=== PATIENT | male | born 1965 | race Caucasian/White ===

== ENCOUNTER 2023-02-22 09:27 | Outpatient (CLI) | payer OTHER, SELFPAY | END 2023-02-22 09:28 | disposition home or self-care (01) | PROVIDERS: PCP Nurse Practitioner Family; Visit Provider Family Medicine | DX: I10 Essential (primary) hypertension (principal); E13.9 Other specified diabetes mellitus without complications; E66.9 Obesity, unspecified; R06.09 Other forms of dyspnea; Z13.29 Encounter for screening for other suspected endocrine disorder; Z12.5 Encounter for screening for malignant neoplasm of prostate; Z90.89 Acquired absence of other organs; Z96.22 Myringotomy tube(s) status | CPT/HCPCS: 80048; 80076; 84153; 84443 ==

== ENCOUNTER 2023-04-02 13:33 | Outpatient (CLI) | payer OTHER, SELFPAY ==
[2023-04-02] MEDS: PERFLUTREN LIPID MICROSPHERES 2 ML VIAL IV (18:14)
== END 2023-04-02 13:34 | disposition home or self-care (01) ==
LOC: RAD 13:34
PROVIDERS: PCP Nurse Practitioner Family; Visit Provider Family Medicine
DX: R06.09 Other forms of dyspnea (principal); I51.7 Cardiomegaly
CPT/HCPCS: 93306; Q9957

== ENCOUNTER 2023-04-27 08:41 | Outpatient (RCR) | payer OTHER, SELFPAY ==
[2023-04-27] MEDS: REGADENOSON 0.4 MG/5 ML SYRINGE IVP (08:46)
[2023-04-27] MEDS: SODIUM CHLORIDE 0.9 % (FLUSH) 10 ML SYRINGE IVF (08:46)
[2023-04-27 10:28] VITALS: BP 116/64; PULSE 87
--- NOTE | 2023-04-27 10:41 | W.PM.STED ---
Stress Test Note Date Date of test: 04/27/23 Providers Primary care provider: Janina Alvarenga Stress test physician: Derek Pryor Stress Test Note Stress test ordered: Lexiscan Indication for test: Dyspnea Stress test medicine: Lexiscan Results discussion: Patient is a 57-year-old gentleman who presents for the above test, after review of the cardiac stress test medical history form. In discussing the risks benefits and side effects of this test he would like to proceed. Pretest EKG shows EKG with normal sinus rhythm, no acute ST wave changes are noted. Ventricular rate is 87 with a blood pressure 110/61. Standard infusion of Lexiscan is done over 5 minute. Maximum heart rate was 95, maximum blood pressure was 132/68. He was asymptomatic and had no complaints. Review of his tracing showed no evidence of dysrhythmia, there is no EKG evidence of ST wave changes, he recovered normally Impression: Negative electrographic portion of Lexiscan Follow up suggested: Await nuclear images these will be read by nuclear Medicine, clinical correlation with these will be needed. Patient left this testing facility in good condition, at baseline.
== END 2023-05-06 23:59 | disposition home or self-care (01) ==
LOC: STRESS 08:41
PROVIDERS: PCP Nurse Practitioner Family; Visit Provider Family Medicine
DX: R06.09 Other forms of dyspnea (principal)
CPT/HCPCS: 78452; 93016; 93017; A9500; J2785

== ENCOUNTER 2023-05-23 14:23 | Outpatient (REF) | payer OTHER, SELFPAY ==
[2023-05-23 14:58] LABS: Basophils Absolute Auto 0.12 K/uL (0.00-0.30); Basophils Percent Auto 1.3 % (0.0-3.0); Eosinophils Absolute Auto 0.29 K/uL (0.00-0.50); Immature Granulocytes Abs Auto 0.06 K/uL (0.00-0.30); Immature Granulocytes Pct Auto 0.6 %; Immature Reticulocyte Fraction 32.8 % (2.3-13.4); Lymphocytes Percent Auto 17.2 % (20-44); Mean Corpuscular HGB Conc 22 gm/dL (32-36); Mean Corpuscular Hemoglobin 13 pg (26-34); Mean Corpuscular Volume 60 fL (80-100); Monocytes Percent Auto 7.8 % (0.0-11.0); Neutrophils Absolute Auto 6.69 K/uL (1.7-7.0); Neutrophils Percent Auto 70.1 % (42.0-72.0); Platelet Count* 554 K/uL (140-440); RDW Coefficient of Variation % 24.6 % (11.5-15.5); Reticulocyte Hemoglobin Equivi 11.3 pg (29.0-35.0); Reticulocyte Percent 3.2 % (0.5-2.0); White Blood Count* 9.54 K/uL (4.50-11.00)
[2023-05-23 14:59] LABS: Albumin* 3.7 g/dL (3.3-5.0)
[2023-05-23 15:00] LABS: Chloride* 100 mmol/L (96-114); Potassium* 5.4 mmol/L (3.6-5.1); Sodium* 134 mmol/L (135-149)
[2023-05-23 15:02] LABS: Bilirubin Total* 0.8 mg/dL (0.1-1.5); Creatinine* 0.7 mg/dL (0.5-1.5); Estimated Glomerular Filt Rate 108 ml/min; Iron* 24 ug/dL (49-181)
[2023-05-23 15:03] LABS: Alanine Aminotransferase* 11 U/L (4-50); Alkaline Phosphatase* 98 U/L (40-150); Anion Gap 13 mEq/L (7-15); Aspartate Amino Transferase* 16 U/L (12-35); Blood Urea Nitrogen* 9 mg/dL (7-30); Calcium* 8.4 mg/dL (8.4-10.6); Carbon Dioxide* 21 mmol/L (20-32); Glucose* 249 mg/dL (60-115); Lactate Dehydrogenase* 201 U/L (120-246); Total Protein* 6.5 g/dL (6.0-8.3)
[2023-05-23 15:12] LABS: Percent Iron Saturation 5 % (20-50); Total Iron Binding Capacity 458 ug/dL (261-462)
[2023-05-23 15:38] LABS: Ferritin* 3.6 ng/mL (17.9-464.0)
[2023-05-23 20:49] LABS: NT Pro B Type NatriureticPept* 271 pg/mL
[2023-05-23 21:03] LABS: Slide Review Reflex No
== END 2023-05-23 14:24 | disposition home or self-care (01) ==
LOC: NPINS 14:23
PROVIDERS: PCP Nurse Practitioner Family; Visit Provider Internal Medicine
DX: D64.9 Anemia, unspecified (principal); R06.9 Unspecified abnormalities of breathing
CPT/HCPCS: 80053; 82728; 83540; 83550; 83615; 83880; 85025; 85045

== ENCOUNTER 2023-05-23 20:50 | Inpatient (IN) | payer OTHER, SELFPAY ==
[2023-05-23] VITALS (9 sets, daily range): BP systolic 126–152; BP diastolic 62–78; PULSE 82–93; RESP 20–24; TEMP 37.1–37.2; O2SAT 98–100; BMI 43.5; BMI 44.2
[2023-05-23 21:15] LABS: Red Blood Count 2.83 m/uL (4.30-5.90); White Blood Count* 9.11 K/uL (4.50-11.00)
[2023-05-23 21:16] LABS: Basophils Percent Auto 0.2 % (0.0-3.0); Eosinophils Percent Auto 2.4 % (0.0-7.0); Hematocrit 16.8 % (37.0-53.0); Hemoglobin* 3.8 gm/dL (13.5-17.5); Lymphocytes Percent Auto 19.2 % (20-44); Mean Corpuscular HGB Conc 23 gm/dL (32-36); Mean Corpuscular Hemoglobin 13 pg (26-34); Mean Corpuscular Volume 59 fL (80-100); Monocytes Percent Auto 9.3 % (0.0-11.0); Neutrophils Percent Auto 68.4 % (42.0-72.0); Platelet Count* 214 K/uL (140-440); Slide Review Reflex Yes
--- NOTE | 2023-05-23 21:24 | ED.GENADULT ---
HPI - General Adult General Chief complaint: Unspecified Complaint, Adult Stated complaint: fatigue, shortness of breath Time Seen by Provider: 05/23/23 21:03 Source: patient Mode of arrival: ambulatory Limitations: no limitations History of Present Illness HPI narrative: 57-year-old male coming in today at the request of the lab for hemoglobin of 3.8. Patient states he has been having shortness of breath since last February. He had a stress test done which was unremarkable and sent to the occupational therapist assistant. He had a hemoglobin done last week he states which was 7.0 at the occupational therapist assistant's office and he was instructed to repeat his hemoglobin this week. He had a repeat done this afternoon around noon which was 4.0 so he was instructed to return for repeat again. Repeat this evening was 3.8 and patient was sent to the ER. Patient states that his shortness of breath is gotten progressively worse over the last couple of months. He can hardly walk anywhere without having to rest. He does not have any chest pain. He states that his stools have been running a because of the metformin that he takes with their always brown, he denies any black tarry stools. He denies any blood in his stools per he denies any blood in his urine. He denies any recent illness with vomiting. He denies any family history that he is aware of that causes anemia. He has never had a colonoscopy. Related Data Home Medications Medication Instructions Recorded Confirmed amlodipine 5 mg tablet 5 mg PO DAILY 02/24/22 05/02/23 aspirin 81 mg capsule 81 mg PO QDAY 02/24/22 05/02/23 atorvastatin 10 mg tablet 10 mg PO .Bedtime 02/24/22 05/02/23 ezetimibe 10 mg tablet 10 mg PO 02/24/22 05/02/23 levothyroxine 50 mcg tablet 50 mcg PO DAILY 02/24/22 05/02/23 lisinopril 10 mg tablet 10 mg PO QDAY 02/24/22 05/02/23 metformin 500 mg tablet 500 mg PO TIDWMEAL 02/24/22 05/02/23 omega-3 fatty acids 1,000 mg 1,000 mg PO QDAY 02/24/22 05/02/23 capsule dulaglutide 3 mg/0.5 mL 3 mg subcut QWEEK 03/19/22 05/02/23 subcutaneous pen injector (Trulicity) insulin regular hum U-500 conc 500 85 unit subcut TID 03/19/22 05/02/23 unit/mL subcutaneous soln (Humulin R U-500 (Concentrated) Insulin) Previous Rx's Medication Instructions Recorded furosemide 40 mg tablet 40 mg PO QAM #90 tabs 02/22/23 ofloxacin 0.3 % eye drops See Rx Instructions ophthalmic 05/02/23 (eye) .COMPLEX #10 mL Allergies Allergy/AdvReac Type Severity Reaction Status Date / Time No Known Drug Allergies Allergy Verified 05/02/23 10:54 Review of Systems Status of ROS: Reports: 10 or more systems reviewed and unremarkable except as noted in History and below [facility] Surgical History History of tympanostomy tube placement ?Z96.22 - Myringotomy tube(s) status (ICD-10) S/P adenoidectomy ?Z90.89 - Acquired absence of other organs (ICD-10) Social History Smoking Status: Never smoker Exam Narrative: Exam Narrative: Obese patient, a tachypneic upon entering the ER. Patient is obviously pale. Alert and oriented. Answers questions appropriately. Mood and affect are appropriate. Thoughts are goal oriented and rational. No tangential or magical thinking noted. Patient cannot complete a full sentence without needing to catch his breath. HEENT: Normocephalic atraumatic. Pupils are equally round reactive to light. Extraocular muscles are intact. Conjunctivae are moist but pale. Moist, pale mucous membranes. Neck is soft. Cardiovascular: Heart is regular rate and rhythm S1 and S2 are present without any murmurs. Lungs: Clear to auscultation bilaterally no wheezes rhonchi or rales are appreciated. Patient takes deep breaths without any discomfort. Abdomen: Protuberant with normal bowel sounds. Unable to assess for organomegaly secondary to body habitus. Extremities: Bilateral lower extremities show 2+ pitting edema bilaterally with the right greater than the left. Right side has some chronic skin changes from chronic edema. Skin: Well perfused, pale. Const: Vital Signs, click to edit/add: Vital Signs - 24 hr 05/23/23 21:04 05/23/23 21:13 Temperature 99.0 F Pulse Rate [Right Pulse Oximeter] 93 Respiratory Rate 20 Blood Pressure [Le ft Upper Arm] 131/78 Pulse Oximetry 98 98 Oxygen Delivery Me thod Room Air Course Course ED Course: Blood work was reviewed. Hemoglobin 3.8. EKG, read by me, shows normal sinus rhythm with a pulse of 89. Type and cross ordered. Vital Signs Vital signs: Initial Vital Signs Temperature 99.0 F 05/23/23 21:04 Temperature Source Temporal Artery Scan 05/23/23 21:04 Pulse Rate 93 05/23/23 21:04 Pulse Rhythm Regular 05/23/23 21:04 Pulse Strength 3+ Normal 05/23/23 21:04 Respiratory Rate 20 05/23/23 21:04 Blood Pressure 131/78 05/23/23 21:04 Blood Pressure Mean 95 05/23/23 21:04 Blood Pressure Position Supine 05/23/23 21:04 Pulse Oximetry 98 05/23/23 21:04 Oxygen Delivery Method Room Air 05/23/23 21:04 Vital Signs Temperature 99.0 F 05/23/23 21:04 Pulse Rate 93 05/23/23 21:04 Respiratory Rate 20 05/23/23 21:04 Blood Pressure 131/78 05/23/23 21:04 Pulse Oximetry 98 05/23/23 21:04 Oxygen Delivery Method Room Air 05/23/23 21:04 Temperature 99.0 F 05/23/23 21:04 Pulse Rate 93 05/23/23 21:04 Respiratory Rate 20 05/23/23 21:04 Blood Pressure 131/78 05/23/23 21:04 Pulse Oximetry 98 05/23/23 21:13 Oxygen Delivery Method Room Air 05/23/23 21:04 Medical Decision Making [facility] Narrative Medical decision making narrative: 57-year-old male with anemia of unclear etiology. And patient will be admitted for further management. Lab Data Lab results reviewed: Yes I reviewed the patient's lab results Labs: Lab Results 05/23/23 Range/Units 21:10 WBC 9.11 (4.50-11.00) K/uL RBC 2.83 L (4.30-5.90) m/uL Hgb 3.8 L* (13.5-17.5) gm/dL Hct 16.8 L (37.0-53.0) % MCV 59 L (80-100) fL MCH 13 L (26-34) pg MCHC 23 L (32-36) gm/dL Plt Count 214 (140-440) K/uL Neut % (Auto) 68.4 (42.0-72.0) % Lymph % (Auto) 19.2 L (20-44) % [place] % (Auto) 9.3 (0.0-11.0) % Eos % (Auto) 2.4 (0.0-7.0) % Baso % (Auto) 0.2 (0.0-3.0) % Neut # (Auto) 6.20 (1.7-7.0) K/uL Lymph # (Auto) 1.70 (0.90-2.90) K/uL [place] # (Auto) 0.80 (0.00-0.90) K/UL Eos # (Auto) 0.20 (0.00-0.50) K/uL Baso # (Auto) 0.00 (0.00-0.30) K/uL Blood Type AB Positive Antibody Screen NEGATIVE Crossmatch (AHG) See Detail ECG Data Attestation: I personally reviewed and interpreted this ECG as follows: Discharge Plan Discharge Clinical Impression: Symptomatic anemia Patient Disposition: Admitted As Observation Condition: Stable Prescriptions: No Action furosemide 40 mg tablet 40 mg PO QAM Qty: 90 1RF ofloxacin 0.3 % drops See Rx Instructions ophthalmic (eye) .COMPLEX Qty: 10 0RF Rx Instructions: put 1-2 drps into affected eye(s) every 2-4 h x 2 days, then 1-2 drps 4 times/day days 3-7 ophthalmic (eye) ezetimibe 10 mg tablet 10 mg PO levothyroxine 50 mcg tablet 50 mcg PO DAILY amlodipine 5 mg tablet 5 mg PO DAILY atorvastatin 10 mg tablet 10 mg PO .Bedtime omega-3 fatty acids 1,000 mg capsule 1,000 mg PO QDAY aspirin 81 mg capsule 81 mg PO QDAY metformin 500 mg tablet 500 mg PO TIDWMEAL lisinopril 10 mg tablet 10 mg PO QDAY Trulicity 3 mg/0.5 mL pen injector 3 mg subcut QWEEK Humulin R U-500 (Conc) Insulin 500 unit/mL solution 85 unit subcut TID Follow Up/Referrals: Patrick Kirk MD [Primary Care Provider] -
--- NOTE | 2023-05-23 21:45 | P.IMHP_ITS ---
Hospitalist- H&P: HPI History of Present Illness Date Seen: 05/23/23 Chief complaint: fatigue, shortness of breath Narrative: Des Parker is a 57 year old male with diabetes mellitus, hypertension, obstructive sleep apnea on CPAP, obesity with BMI of 43 presents with progressive dyspnea and lightheadedness over several months. Today was seen when his hemoglobin was found to be 3.8. Patient reports no apparent bleeding. He has normal brown stools without blood or melena. No other bleeding problems. No other history of anemia. Review of the records show that his last hemoglobin was in April of 2015 and was 18.5 with an MCV of 91 and a platelet count of 214. He had an echocardiogram in March of 2023 to evaluate his dyspnea. He had an ejection fraction of 60-65%. Mild LVH and enlarged RV with reduced RV function. April 27 he had a myocardial perfusion stress test which was normal. [facility] Medical History (Updated 05/23/23 @ 22:54 by Carloz Bah MD) Symptomatic anemia ?D64.9 - Anemia, unspecified (ICD-10) Dyspnea on exertion ?R06.09 - Other forms of dyspnea (ICD-10) Ascending aorta dilation ?I77.810 - Thoracic aortic ectasia (ICD-10) BANG on CPAP ?G47.33 - Obstructive sleep apnea (adult) (pediatric) (ICD-10) Obesity ?E66.9 - Obesity, unspecified (ICD-10) Diabetes 1.5, managed as type 1 ?E13.9 - Other specified diabetes mellitus without complications (ICD-10) Hypertension ?I10 - Essential (primary) hypertension (ICD-10) Surgical History History of tympanostomy tube placement ?Z96.22 - Myringotomy tube(s) status (ICD-10) S/P adenoidectomy ?Z90.89 - Acquired absence of other organs (ICD-10) Social History (Updated 05/23/23 @ 22:56 by Carloz Bah MD) Narrative: He lives in [place]. 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 He does not smoke. He rarely drinks alcohol. Code status is DNR. His oldest child, Des campbell, is healthcare power of assistant city attorney What is your current living situation?: I presently have a place to live Problems where you live: no known problems Problems where you live details: n/a In the past 12 months, utilities in danger of being shut off: no In past 12 months, lack of transportation kept you from medical appts, meetings, work, or getting things needed for daily living: no In the past 12 mos, have been you worried that your food would run out before you had money to buy more?: never true In the past 12 mos, the food you bought just didn't last and you didn't have money to buy more?: never true Smoking Status: Former smoker Do you use any of these nicotine containing products: None Second hand tobacco smoke exposure: No How often do you have a drink containing alcohol: monthly or less How often do you have six or more drinks on one occasion: Never AUDIT-C Alcohol total score: 1 Non-prescribed substance use: denies use Caffeine: Yes (weekly) How often does anyone, including family, friends and others, physically hurt you : never How often does anyone, including family, friends and others, insult or talk down to you: never How often does anyone, including family, friends and others, threaten you with harm: never How often does anyone, including family, friends and others, scream or curse at you: never Meds Home Medications and Allergies Home Medications Medication Instructions Recorded Confirmed Type amlodipine 5 mg tablet 5 mg PO DAILY 02/24/22 05/02/23 History aspirin 81 mg capsule 81 mg PO QDAY 02/24/22 05/02/23 History atorvastatin 10 mg tablet 10 mg PO .Bedtime 02/24/22 05/02/23 History ezetimibe 10 mg tablet 10 mg PO 02/24/22 05/02/23 History levothyroxine 50 mcg tablet 50 mcg PO DAILY 02/24/22 05/02/23 History lisinopril 10 mg tablet 10 mg PO QDAY 02/24/22 05/02/23 History metformin 500 mg tablet 500 mg PO TIDWMEAL 02/24/22 05/02/23 History omega-3 fatty acids 1,000 mg 1,000 mg PO QDAY 02/24/22 05/02/23 History capsule dulaglutide 3 mg/0.5 mL 3 mg subcut QWEEK 03/19/22 05/02/23 History subcutaneous pen injector (Trulicity) insulin regular hum U-500 conc 500 85 unit subcut TID 03/19/22 05/02/23 History unit/mL subcutaneous soln (Humulin R U-500 (Concentrated) Insulin) Allergies Allergy/AdvReac Type Severity Reaction Status Date / Time No Known Drug Allergies Allergy Verified 05/02/23 10:54 Exam Narrative: Exam Narrative: He is alert and appears in no distress. He is pale appearing. Does not appear dyspneic. Eyes normal. Oropharynx normal. Neck is supple without mass or adenopathy. Respirations are clear to auscultation. Cardiovascular: S1, S2, regular rate and rhythm. Abdomen: Bowel sounds active. Abdomen is soft without tenderness or mass. rectal exam shows soft brown stool . Guaiac negative. Lower Extremities with 3+ to 4+ edema bilaterally. Const: Vital Signs, click to edit/add: Vital Signs - 24 hr 05/23/23 21:04 05/23/23 21:13 Temperature 99.0 F Pulse Rate [Right Pulse Oximeter] 93 Respiratory Rate 20 Blood Pressure [Le ft Upper Arm] 131/78 Pulse Oximetry 98 98 Oxygen Delivery Me thod Room Air Documenting provider has reviewed patient's vital signs: yes Hospitalist - H&P: Result Labs Labs: Short CBC 05/23/23 Range/Units 21:10 WBC 9.11 (4.50-11.00) K/uL Hgb 3.8 L* (13.5-17.5) gm/dL Hct 16.8 L (37.0-53.0) % Plt Count 214 (140-440) K/uL Assessment and Plan Assessment and plan (1) Symptomatic anemia: Problem comment: Microcytic anemia. Iron deficiency. Suspect blood-loss anemia from occult GI source despite negative guaiac. PPI. Likely needs EGD and possibly colonoscopy. Status: Acute (2) BANG on CPAP: Problem comment: home CPAP Status: Acute (3) Hyperkalemia: Problem comment: hold lisinopril. Continue furosemide and follow Status: Acute (4) Hypertension: Problem comment: hold blood pressure medicines pending identifying source of anemia Status: Acute (5) Diabetes 1.5, managed as type 1: Problem comment: continue home insulin at a reduced dose. Temporarily hold metformin Status: Acute Plan admit for evaluation and treatment of severe symptomatic anemia. total time spent today is 90 minutes, 60 minutes in coordination of care and discussing with patient for, family and other providers ongoing evaluation management.
[2023-05-23 21:54] LABS: Immature Reticulocyte Fraction 36.8 % (2.3-13.4); Reticulocyte Hemoglobin Equivi 10.4 pg (29.0-35.0); Reticulocyte Percent 2.7 % (0.5-2.0); Reticulocytes Absolute 0.08 # (0.03-0.08)
[2023-05-23 21:57] LABS: Troponin I* < 0.01 ng/mL (0.01-0.04)
[2023-05-23 22:02] LABS: Slide Review Acceptable Review (Acceptable)
[2023-05-24] VITALS (22 sets, daily range): BP systolic 102–146; BP diastolic 51–75; PULSE 78–89; RESP 18–24; TEMP 36.8–37.4; O2SAT 93–100
[2023-05-24] MEDS: FUROSEMIDE 10 MG/ML inj 20 MG IVP (02:38)
[2023-05-24] MEDS: PANTOPRAZOLE SODIUM 40 MG INJ 80 MG IVP (05:19)
--- NOTE | 2023-05-24 06:11 | PC.NURSE ---
End of shift ? Pt arrived from ED at approximately 2142. Alert, oriented x 4, cooperative. Up independently in room, family at bedside. Pt reported SOB with exertion and denied pain, but explained feeling of ?tightness? and ?squeezing? across his chest and abdomen that comes and goes. 3 units of PRBC given per MD order and TAR instruction. No infusion reaction noted. Pt described ?feeling better? after receiving 3 units of PRBC, observed to walk halls and explained that his SOB was significantly improved from his arrival. Pt tolerating NPO diet, appears to be resting comfortably at end of shift. ?
[2023-05-24 06:19] LABS: Basophils Percent Auto 0.3 % (0.0-3.0); Hematocrit 23.5 % (37.0-53.0); Immature Granulocytes Pct Auto 0.3 %; Lymphocytes Percent Auto 13.8 % (20-44); Mean Corpuscular HGB Conc 26 gm/dL (32-36); Mean Corpuscular Hemoglobin 17 pg (26-34); Mean Corpuscular Volume 66 fL (80-100); Monocytes Percent Auto 9.1 % (0.0-11.0); Neutrophils Percent Auto 74.5 % (42.0-72.0); Platelet Count* 435 K/uL (140-440); RDW Coefficient of Variation % 29.7 % (11.5-15.5); Red Blood Count 3.59 m/uL (4.30-5.90); White Blood Count* 11.47 K/uL (4.50-11.00)
[2023-05-24 06:24] LABS: Hemoglobin* 6.1 gm/dL (13.5-17.5); Slide Review Reflex No
[2023-05-24 06:36] LABS: Blood Urea Nitrogen* 11 mg/dL (7-30); Calcium* 8.6 mg/dL (8.4-10.6); Carbon Dioxide* 24 mmol/L (20-32); Creatinine* 0.7 mg/dL (0.5-1.5); Est. Creatinine Clearance* 133.17; Estimated Glomerular Filt Rate 108 ml/min; Glucose* 195 mg/dL (60-115)
[2023-05-24 06:56] LABS: Anion Gap 10 mEq/L (7-15); Chloride* 105 mmol/L (96-114); Potassium* 4.5 mmol/L (3.6-5.1); Sodium* 139 mmol/L (135-149)
[2023-05-24] MEDS: EZETIMIBE 10 MG TABLET PO (09:20)
[2023-05-24] MEDS: FUROSEMIDE 40 MG TABLET PO (09:20)
[2023-05-24] MEDS: OMEPRAZOLE 20 MG CAPSULE DR PO ×2 (09:20→21:28)
[2023-05-24] MEDS: SODIUM CHLORIDE 0.9 % (FLUSH) 10 ML SYRINGE 5 ML IVF ×2 (09:20→21:33)
[2023-05-24] MEDS: LEVOTHYROXINE 50 MCG TABLET PO (09:20)
--- NOTE | 2023-05-24 11:19 | PM.IMPN1 ---
Progress Note: A&P Assessment and plan (1) Symptomatic anemia: Problem details: - Microcytic anemia. Obtain direct albertina test. Suspect iron deficiency. Suspect blood-loss anemia from occult GI source despite negative guaiac. PPI. Obtaining [address] abd/pelvis to look for GI bleed. Clears today. Ordered EGD/Colonoscopy for tomorrow. Prep today. - Hgb 6.1 this morning (up from 3.8 after 3 units). Will transfuse 2 more units. Goal is greater than 7. Status: Acute (2) Diabetes 1.5, managed as type 1: Problem details: continue home insulin at a reduced dose. Continue ISS ACHS. Temporarily hold metformin. Status: Acute (3) BANG on CPAP: Problem details: home CPAP Status: Chronic (4) Ascending aorta dilation: Problem details: 4.1 cm, Echo 03/2023 Status: Chronic (5) Hypertension: Problem details: hold blood pressure medicines pending identifying source of anemia Status: Chronic (6) Hyperkalemia: Problem details: Continue to hold lisinopril. Continue furosemide and follow Status: Resolved (7) Dyspnea on exertion: Problem details: - Suspect this is at least in part due to anemia. Echocardiogram in March of 2023 to evaluate his dyspnea. He had an ejection fraction of 60-65%. Mild LVH and enlarged RV with reduced RV function. April 27 he had a myocardial perfusion stress test which was normal Status: Acute Plan Prakash's toes and ambulation for VTE prophylaxis. Avoid pharmacologic VTE prophylaxis due to GI bleed. Subjective Time Seen by Provider: 07:49 Date Seen: 05/24/23 Interval history: Des is feeling a little bit better, but somewhat fatigued yet. He was surprised to hear that he needed more blood this morning. 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 He had a hemoglobin about 4 days ago through the pulmonology clinic that was 7 and then he was 3.8 yesterday. He denies any bright red blood per rectum or melena. He has not had any abdominal pain. He denies any other bleeding or injury. Exam Narrative: Exam Narrative: General: No acute distress. Sleeping, arousable and then alert for my conversation with him, oriented. Pallor noted. No jaundice. Oropharynx: Clear. Mucous membranes moist. Cardiovascular: Regular rate and rhythm. No murmurs, gallops, or rubs. Respiratory: Clear to auscultation bilaterally. No wheezes or crackles. Abdomen: Bowel sounds present. Soft, nondistended, nontender. Extremities: 3+ bilateral lower extremity edema. Const: Vital Signs, click to edit/add: Vital Signs - 24 hr 05/23/23 20:52 05/23/23 21:04 05/23/23 21:13 Temperature 98.8 F 99.0 F Pulse Rate Pulse Rate [Pulse Oximeter] Pulse Rate [Right Pulse Oximeter] 89 93 Respiratory Rate 20 20 Blood Pressure Blood Pressure [Le ft Arm] Blood Pressure [Le ft Upper Arm] 135/74 131/78 Blood Pressure [Ri ght Arm] Pulse Oximetry 98 98 98 Oxygen Delivery [facility] Room Air Room Air 05/23/23 21:50 05/23/23 22:01 05/23/23 22:14 Temperature 99.0 F 98.9 F 98.9 F Pulse Rate 92 Pulse Rate [Pulse Oximeter] 92 Pulse Rate [Right Pulse Oximeter] 93 Respiratory Rate 20 20 24 Blood Pressure 152/63 H Blood Pressure [Le ft Arm] Blood Pressure [Le ft Upper Arm] 131/78 Blood Pressure [Ri ght Arm] 152/63 H Pulse Oximetry 99 99 [facility] 05/23/23 22:14 05/23/23 22:17 05/23/23 23:00 Temperature Pulse Rate 82 Pulse Rate [Pulse Oximeter] Pulse Rate [Right Pulse Oximeter] Respiratory Rate 24 20 20 Blood Pressure 132/62 Blood Pressure [Le ft Arm] Blood Pressure [Le ft Upper Arm] Blood Pressure [Ri ght Arm] Pulse Oximetry 99 100 [facility] 05/23/23 23:00 05/23/23 23:02 05/24/23 00:02 Temperature 98.8 F 98.8 F 98.8 F Pulse Rate 82 87 Pulse Rate [Pulse Oximeter] 87 Pulse Rate [Right Pulse Oximeter] Respiratory Rate 24 20 24 Blood Pressure 126/66 130/70 Blood Pressure [Le ft Arm] Blood Pressure [Le ft Upper Arm] Blood Pressure [Ri ght Arm] 130/70 Pulse Oximetry 99 100 99 [facility] 05/24/23 00:28 05/24/23 00:44 05/24/23 01:29 Temperature 98.8 F 98.9 F 99.0 F Pulse Rate 87 89 87 Pulse Rate [Pulse Oximeter] Pulse Rate [Right Pulse Oximeter] Respiratory Rate 24 20 20 Blood Pressure 130/70 135/69 129/71 Blood Pressure [Le ft Arm] Blood Pressure [Le ft Upper Arm] Blood Pressure [Ri ght Arm] Pulse Oximetry 99 99 98 Oxygen Delivery Me thod 05/24/23 02:17 05/24/23 02:40 05/24/23 02:52 Temperature 98.3 F 98.3 F 99.2 F Pulse Rate 86 86 85 Pulse Rate [Pulse Oximeter] Pulse Rate [Right Pulse Oximeter] Respiratory Rate 20 20 20 Blood Pressure 137/75 137/75 134/67 Blood Pressure [Le ft Arm] Blood Pressure [Le ft Upper Arm] Blood Pressure [Ri ght Arm] Pulse Oximetry 100 100 98 Oxygen Delivery Oh thod 05/24/23 02:56 05/24/23 02:59 05/24/23 03:41 Temperature 99.2 F 99.2 F 99.3 F Pulse Rate 85 84 Pulse Rate [Pulse Oximeter] 85 Pulse Rate [Right Pulse Oximeter] Respiratory Rate 20 20 20 Blood Pressure 137/68 128/66 Blood Pressure [Le ft Arm] Blood Pressure [Le ft Upper Arm] Blood Pressure [Ri ght Arm] 134/67 Pulse Oximetry 100 98 98 [facility] 05/24/23 08:04 05/24/23 08:04 05/24/23 08:44 Temperature 99.1 F 98.6 F Pulse Rate 85 Pulse Rate [Pulse Oximeter] 83 83 Pulse Rate [Right Pulse Oximeter] Respiratory Rate 20 22 22 Blood Pressure 133/65 Blood Pressure [Le ft Arm] 102/51 L Blood Pressure [Le ft Upper Arm] Blood Pressure [Ri ght Arm] Pulse Oximetry 99 100 Oxygen Delivery Oh thod Room Air 05/24/23 09:07 05/24/23 09:52 05/24/23 10:52 Temperature 98.6 F 98.7 F 98.8 F Pulse Rate 82 83 78 Pulse Rate [Pulse Oximeter] Pulse Rate [Right Pulse Oximeter] Respiratory Rate 22 22 22 Blood Pressure 131/65 128/67 123/68 Blood Pressure [Le ft Arm] Blood Pressure [Le ft Upper Arm] Blood Pressure [Ri ght Arm] Pulse Oximetry 100 93 99 Oxygen Delivery Me thod 05/24/23 11:03 Temperature 98.9 F Pulse Rate 78 Pulse Rate [Pulse Oximeter] Pulse Rate [Right Pulse Oximeter] Respiratory Rate 20 Blood Pressure 121/62 Blood Pressure [Le ft Arm] Blood Pressure [Le ft Upper Arm] Blood Pressure [Ri ght Arm] Pulse Oximetry 96 Oxygen Delivery Me thod Documenting provider has reviewed patient's vital signs: yes Labs Labs: Laboratory Results - last 24 hr 05/23/23 05/23/23 05/24/23 21:10 21:32 05:56 WBC 9.11 11.47 H RBC 2.83 L 3.59 L Hgb 3.8 L* 6.1 L* Hct 16.8 L 23.5 L MCV 59 L 66 L MCH 13 L 17 L MCHC 23 L 26 L RDW Coeff of Jayshree 29.7 H Plt Count 214 435 Neut % (Auto) 68.4 74.5 H Lymph % (Auto) 19.2 L 13.8 L [place] % (Auto) 9.3 9.1 Eos % (Auto) 2.4 2.0 Baso % (Auto) 0.2 0.3 Neut # (Auto) 6.20 8.50 H Lymph # (Auto) 1.70 1.60 [place] # (Auto) 0.80 1.00 H Eos # (Auto) 0.20 0.20 Baso # (Auto) 0.00 0.00 Abs Immat Gran (auto) 0.00 Imm/Tot Granulo (auto) 0.3 Diff Slide Review Acceptable Review Absolute Retic 0.08 Percent Retic 2.7 H Immature Retic Fraction 36.8 H Retic Hgb Equivalent 10.4 L Sodium 139 Potassium 4.5 Chloride 105 Carbon Dioxide 24 Anion Gap 10 BUN 11 Creatinine 0.7 Estimated Creat Clear 133.17 Estimated GFR 108 Glucose 195 H Calcium 8.6 Troponin I < 0.01 L Lab Acknowledgement Test Added Blood Type AB Positive Antibody Screen NEGATIVE Crossmatch (AHG) See Detail
--- NOTE | 2023-05-24 11:24 | CRLHL7_ITS ---
For Patients: As a result of the 21st Century Cures Act, medical imaging exams and procedure reports are released immediately into your electronic medical record. You may view this report before your referring provider. If you have questions, please contact your health care provider. INDICATION: SEVERE ANEMIA, SUSPECTGI BLEED TECHNIQUE: CT abdomen and pelvis acquired without and with 150 cc Isovue 370 IV contrast. COMPARISON: None. FINDINGS: LOWER CHEST: The heart is at the upper limits of normal in size. No pericardial effusion. Aortic valve calcifications. There is an oval 2 centimeter pulmonary nodule in the right lower lobe with laminated calcifications. No focal airspace consolidation, pleural effusion, or pneumothorax. ABDOMEN/PELVIS: Large region of decreased attenuation along the right hepatic lobe that measures approximately 6.9 x 5.3 centimeters in greatest dimension and is overall similar in appearance on non contrasted, arterial phase, and delayed phase imaging. Cholelithiasis without CT evidence of acute cholecystitis. No ductal dilatation. The spleen, pancreas, and bilateral adrenal glands are unremarkable in appearance. The kidneys perfuse in a normal fashion. No suspicious enhancing renal masses or lesions. Simple appearing renal cysts bilaterally. There is a nonobstructing 9 millimeter calculus at the interpolar region of the left kidney. No hydroureteronephrosis. Circumferential bladder wall thickening, likely secondary to underdistention. There is no evidence of bowel obstruction. The appendix is normal. Redundant sigmoid colon. There is a soft tissue density mass within the central abdomen that measures approximately 3.7 x 3.3 centimeters (series number 12, image 97). There are some adjacent smaller lymph nodes in the central abdomen with increased attenuation of the central mesenteric fat. No evidence of active arterial bleeding. The abdominal aorta is normal in caliber. The celiac axis, SMA, single renal arteries, and SHANAE are widely patent. SOFT TISSUE/MUSCULOSKELETAL: Small fat containing umbilical hernia. No acute fracture or malalignment. No suspicious osseous lesions. There is some degenerative changes of the lower thoracic spine. IMPRESSION: 1. No CT evidence of active arterial bleeding involving the abdomen or pelvis. 2. There is a minimally enhancing soft tissue density mass within the central abdomen that measures approximately 3.7 x 3.3 centimeters. Differential consideration includes desmoid tumor versus lymphoma. 3. Increased attenuation of the central mesenteric fat (edenilson mesentery sign) a nonspecific finding which can be seen with mesenteric lymphoma among other entities. 4. Geographic region of decreased attenuation in the right hepatic lobe measuring approximately 6.9 x 5.3 centimeters that is not significantly change on arterial or portal venous phases, incompletely characterized on this exam but favored to represent region of geographic steatosis. 5. Recommend nonemergent, outpatient MRI abdomen with a liver protocol for further assessment of the hepatic region of decreased attenuation as well as the central soft tissue density mass in the central abdomen. 6. Oval, 2 centimeter pulmonary nodule in the right lower lobe with laminated calcifications, likely benign. Recommend correlation with prior imaging if available. Please note that all CT scans at this facility use dose modulation, iterative reconstruction, and/or weight-based dosing when appropriate to reduce radiation dose to as low as reasonably achievable. Dictated by Chavo Nava MD @ 05/24/2023 4:29:40 PM (Electronically Signed)
[2023-05-24 14:11] LABS: Hemoglobin* 7.4 gm/dL (13.5-17.5)
[2023-05-24] MEDS: bisacodyL 5 MG TABLET DR 10 MG PO (15:27)
[2023-05-24] MEDS: INSULIN ASPART 100 UNIT/ML SUBCUT ×3 (15:27→21:28)
[2023-05-24] MEDS: PEG-3350 SODIUM CL/BICARB-KCL 4,000 ML SOLN 4000 ML PO (15:59)
--- NOTE | 2023-05-24 16:38 | PC.NURSE ---
Dr. Bah notified of abd/pelvis CTA results available in medical record per consulting radiology.
--- NOTE | 2023-05-24 18:11 | PC.NURSE ---
End of Shift: Patient pleasant and cooperative. Patient vitally stable, lungs clear, BS WNL, IV intact and SL. Patient independent and denies pain. Patient received 2 units of blood, tolerating infusion well. Patient urinating and has 1 mod form/hard BM. Patient tolerating clear liquid diet. Blood sugars 150, 168, and 178.
[2023-05-24 18:12] LABS: Fecal Occult Blood* Positive (Negative)
[2023-05-24] MEDS: ATORVASTATIN 10 MG TABLET PO (21:28)
[2023-05-25 03:00] VITALS: BP 118/53; PULSE 85; RESP 18; TEMP 37.3; O2SAT 98
[2023-05-25 06:35] LABS: Basophils Absolute Auto 0.02 K/uL (0.00-0.30); Basophils Percent Auto 0.2 % (0.0-3.0); Eosinophils Absolute Auto 0.19 K/uL (0.00-0.50); Eosinophils Percent Auto 2.3 % (0.0-7.0); Hematocrit 25.4 % (37.0-53.0); Immature Granulocytes Abs Auto 0.03 K/uL (0.00-0.30); Immature Granulocytes Pct Auto 0.4 %; Mean Corpuscular HGB Conc 28 gm/dL (32-36); Mean Corpuscular Hemoglobin 19 pg (26-34); Mean Corpuscular Volume 68 fL (80-100); Monocytes Percent Auto 8.9 % (0.0-11.0); Neutrophils Percent Auto 74.2 % (42.0-72.0); Platelet Count* 346 K/uL (140-440); RDW Coefficient of Variation % 31.1 % (11.5-15.5); Red Blood Count 3.76 m/uL (4.30-5.90); White Blood Count* 8.43 K/uL (4.50-11.00)
[2023-05-25 06:36] LABS: Slide Review Reflex No
[2023-05-25 06:50] LABS: Chloride* 103 mmol/L (96-114); Potassium* 4.1 mmol/L (3.6-5.1); Sodium* 138 mmol/L (135-149)
[2023-05-25 06:53] LABS: Anion Gap 9 mEq/L (7-15); Blood Urea Nitrogen* 7 mg/dL (7-30); Carbon Dioxide* 26 mmol/L (20-32); Creatinine* 0.6 mg/dL (0.5-1.5); Est. Creatinine Clearance* 155.36; Estimated Glomerular Filt Rate 113 ml/min; Glucose* 186 mg/dL (60-115)
[2023-05-25 06:54] LABS: Calcium* 8.3 mg/dL (8.4-10.6)
--- NOTE | 2023-05-25 06:58 | PC.NURSE ---
End of shift [id number]: Assumed care of patient at 2300. Pt is A&O, afebrile and VSS. Independent in his room to BR. Pt reports having x5 clear, green BM?s overnight. He finished his GoLytely bowel prep for planned EGD and colonoscopy today. HS blood sugar: 199; Novolog 3units was given. Pt denies any pain, nausea or dizziness. PIV in left forearm SL and C/D/I. Pt has been NPO for severe anemia and potential GI bleed. Pt transferred for his procedure @ 0645. Pt plans to discharge back home after hospitalization. ?
--- NOTE | 2023-05-25 07:28 | CRLHL7_ITS ---
For Patients: As a result of the Century Cures Act, medical imaging exams and procedure reports are released immediately into your electronic medical record. You may view this report before your referring provider. If you have questions, please contact your health care provider. Indication: Anemia, mass on CT Technique: Multiplanar multisequence images were obtained pre and post gadolinium. Patient received 20 cc Dotarem intravenously for the study Comparison: Abdomen and pelvis CT 05/24/2023 Findings: Liver: Slight T2 hyperintensity within the right lobe in segment 7 which appears represent some enhancement post gadolinium, probably part of a prominent vessel (8, 9). Contour abnormality within segment 4 with a T1 hypointense and heterogeneous T2 lesion which does not show significant enhancement measuring 6.8 x 5.5 centimeters. Gallbladder: Cholelithiasis without pericholecystic inflammation. Pancreas: Unremarkable. Spleen: Unremarkable. Adrenal glands: Unremarkable. Kidneys: Symmetric enhancement with bilateral renal cysts. No hydronephrosis. Vascular: Unremarkable. Bowel and mesentery: T1 hypo intense lesion within the mesentery inferior to the left lobe of the liver with rim enhancement measuring 4.4 x 4.6 centimeters consistent with mesenteric adenopathy. Adjacent prominent irregular bowel wall thickening of the transverse colon (series 18, image 53). Other: Soft tissue nodule within the right lower lobe measuring 2.0 centimeters. Impression: 1. Hypointense lesion within segment 4 measuring to 6.8 centimeters with MR characteristics most consistent with metastatic disease. See comments below. 2. Irregular, annular wall thickening of the mid transverse colon with adjacent mesenteric mass measuring 4.6 centimeters. Appearance is most consistent with colon cancer at the transverse colon with adjacent lymph node spread and liver metastases. 3. Soft tissue nodule within the right lower lobe. Suggest CT chest for further characterization. Dictated by Emanuel Eller MD @ 05/25/2023 2:19:41 PM (Electronically Signed)
--- NOTE | 2023-05-25 08:05 | W.ANESCHARGE ---
Anesthesia Charges Start Date/Time Anesthesia Start Date: 05/25/23 Anesthesia Start Time: 07:20 Stop Date/Time Anesthesia Stop Date: 05/25/23 Anesthesia Stop Time: 08:03
--- NOTE | 2023-05-25 08:18 | CRLHL7_ITS ---
For Patients: As a result of the Century Cures Act, medical imaging exams and procedure reports are released immediately into your electronic medical record. You may view this report before your referring provider. If you have questions, please contact your health care provider. INDICATION: Colon cancer staging TECHNIQUE: Axial images were obtained from the thoracic inlet to the diaphragm. Reformats: Coronal and sagittal IV Contrast: 75 cc Isovue 370 COMPARISON: None. FINDINGS: Mediastinum: No pericardial effusion. Thoracic aorta is normal in caliber. Subjectively moderate calcification of the aortic valve. Sub centimeter mediastinal lymph nodes. Subcentimeter right hilar lymph nodes. Lungs and Pleural Space: No pleural effusion or pneumothorax. Pulmonary nodule within the right lower lobe measuring 2.0 centimeters with rim calcification. Left upper lobe pulmonary nodule measuring 2.2 x 1.5 centimeters (3, 38). Chest wall: No masses. Upper abdomen: Hypodense mass within segment 4 of the liver, mesenteric mass adjacent to the transverse colon, mass at the root of the mesentery, wall thickening of the transverse colon. Nonobstructing nephrolithiasis. Cholelithiasis. Bones: Unremarkable for age. IMPRESSION: Pulmonary nodules in the right lower lobe with rim calcification and left upper lobe pulmonary nodule with some partial calcification along its rim. Although rim calcification is a more uncommon form of pulmonary nodular calcification, in the setting of colon cancer these would be considered suspicious lesions (calcified pulmonary nodules are less commonly seen in untreated metastatic disease, however the exceptions include mucinous colon cancer). Please note that all CT scans at this facility use dose modulation, iterative reconstruction, and/or weight-based dosing when appropriate to reduce radiation dose to as low as reasonably achievable. Dictated by Emanuel Eller MD @ 05/25/2023 2:34:35 PM (Electronically Signed)
[2023-05-25 09:09] LABS: Albumin* 3.5 g/dL (3.3-5.0)
[2023-05-25 09:11] LABS: Bilirubin Direct* 0.2 mg/dL (0.0-0.5); Bilirubin Total* 1.4 mg/dL (0.1-1.5); Total Protein* 6.7 g/dL (6.0-8.3)
[2023-05-25 09:12] LABS: Alanine Aminotransferase* 10 U/L (4-50); Alkaline Phosphatase* 82 U/L (40-150); Aspartate Amino Transferase* 18 U/L (12-35)
[2023-05-25 09:41] VITALS: BP 125/68; PULSE 78; RESP 16; TEMP 36.9; O2SAT 100
[2023-05-25] MEDS: SODIUM CHLORIDE 0.9 % (FLUSH) 10 ML SYRINGE 5 ML IVF (09:45)
[2023-05-25] MEDS: EZETIMIBE 10 MG TABLET PO (10:41)
[2023-05-25] MEDS: FUROSEMIDE 40 MG TABLET PO (10:41)
[2023-05-25] MEDS: LEVOTHYROXINE 50 MCG TABLET PO (10:42)
[2023-05-25] MEDS: OMEPRAZOLE 20 MG CAPSULE DR PO (10:42)
--- NOTE | 2023-05-25 11:42 | PM.GSCN ---
History of Present Illness Consult details Date Seen: 05/25/23 Consult date: 05/25/23 Narrative: Overall patient is doing ?okay? this morning. He initially came in through the emergency department for fatigue and shortness of breath. Workup at that time was obtained with evidence of a hemoglobin of 3.8. He has received 6 units of red blood cells with current hemoglobin 7.0. He does report that his weakness and shortness of breath has significantly improved. He denies any abdominal pain, nausea or vomiting. He did undergo a bowel prep for colonoscopy that was performed earlier today. This was tolerated. He currently feels bloated following the scope, but is passing gas. He denies any unintentional weight loss over the last 6 months. He is currently on metformin for diabetes, which makes his bowel movements irregular. Some days he has up to 3 loose stools, with other days being hard rocks. He denies any change in caliber of stools, no reported pencil stools or dark stools. No bright red blood per rectum. This is his first colonoscopy. He has never had abdominal surgery before. Family history is significant for brain cancer in his mom. He also had a paternal uncle with pancreatic cancer. His brother of COVID a few years earlier. He has 3 sisters who are healthy. Review of Systems Status of ROS: Reports: 10 or more systems reviewed and unremarkable except as noted in History and below [facility] Medical History (Updated 05/25/23 @ 11:52 by Ursula Davis MD) Symptomatic anemia ?D64.9 - Anemia, unspecified (ICD-10) Dyspnea on exertion ?R06.09 - Other forms of dyspnea (ICD-10) Ascending aorta dilation ?I77.810 - Thoracic aortic ectasia (ICD-10) BANG on CPAP ?G47.33 - Obstructive sleep apnea (adult) (pediatric) (ICD-10) Obesity ?E66.9 - Obesity, unspecified (ICD-10) Diabetes 1.5, managed as type 1 ?E13.9 - Other specified diabetes mellitus without complications (ICD-10) Hypertension ?I10 - Essential (primary) hypertension (ICD-10) Surgical History History of tympanostomy tube placement ?Z96.22 - Myringotomy tube(s) status (ICD-10) S/P adenoidectomy ?Z90.89 - Acquired absence of other organs (ICD-10) Social History (Updated 05/23/23 @ 22:56 by Carloz Bah MD) Narrative: He lives in [place]. 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 He does not smoke. He rarely drinks alcohol. Code status is DNR. His oldest child, Des campbell, is healthcare power of mergers and acquisitions attorney What is your current living situation?: I presently have a place to live Problems where you live: no known problems Problems where you live details: n/a In the past 12 months, utilities in danger of being shut off: no In past 12 months, lack of transportation kept you from medical appts, meetings, work, or getting things needed for daily living: no In the past 12 mos, have been you worried that your food would run out before you had money to buy more?: never true In the past 12 mos, the food you bought just didn't last and you didn't have money to buy more?: never true Smoking Status: Former smoker Do you use any of these nicotine containing products: None Second hand tobacco smoke exposure: No How often do you have a drink containing alcohol: monthly or less How often do you have six or more drinks on one occasion: Never AUDIT-C Alcohol total score: 1 Non-prescribed substance use: denies use Caffeine: Yes (weekly) How often does anyone, including family, friends and others, physically hurt you: never How often does anyone, including family, friends and others, insult or talk down to you: never How often does anyone, including family, friends and others, threaten you with harm: never How often does anyone, including family, friends and others, scream or curse at you: never Meds Home Medications and Allergies Home Medications Medication Instructions Recorded Confirmed Type amlodipine 5 mg tablet 5 mg PO DAILY 02/24/22 05/24/23 History aspirin 81 mg capsule 81 mg PO QDAY 02/24/22 05/02/23 History atorvastatin 10 mg tablet 40 mg PO .Bedtime 02/24/22 05/24/23 History ezetimibe 10 mg tablet 10 mg PO QDAY 02/24/22 05/24/23 History levothyroxine 50 mcg tablet 50 mcg PO DAILY 02/24/22 05/24/23 History lisinopril 10 mg tablet 10 mg PO QDAY 02/24/22 05/24/23 History metformin 500 mg tablet 500 mg PO TIDWMEAL 02/24/22 05/24/23 History omega-3 fatty acids 1,000 mg 1,000 mg PO QDAY 02/24/22 05/24/23 History capsule dulaglutide 3 mg/0.5 mL 3 mg subcut QWEEK 03/19/22 05/24/23 History subcutaneous pen injector (Trulicity) insulin regular hum U-500 conc 500 85 unit subcut TID 03/19/22 05/24/23 History unit/mL subcutaneous soln (Humulin R U-500 (Concentrated) Insulin) Allergies Allergy/AdvReac Type Severity Reaction Status Date / Time No Known Drug Allergies Allergy Verified 05/25/23 12:11 Exam Narrative: Exam Narrative: General: Alert and oriented, no acute distress. Nontoxic in appearance Respiratory: Equal breath rise bilaterally, maintained on room air CV: Regular rhythm rate, well perfused Abdomen: Obese abdomen, mild distention. Nontender to palpation. No previous surgical incisions. Const: Vital Signs, click to edit/add: Vital Signs - 24 hr 05/24/23 12:12 05/24/23 13:56 05/24/23 15:37 Temperature 98.8 F 98.2 F 99.2 F Pulse Rate 79 80 Pulse Rate [Pulse Oximeter] 79 Respiratory Rate 20 20 22 Blood Pressure 124/69 146/75 H Blood Pressure [Le ft Arm] Blood Pressure [Ri ght Arm] 131/72 Pulse Oximetry 97 99 99 Oxygen Delivery Me thod Room Air 05/24/23 15:37 05/24/23 19:00 05/24/23 23:00 Temperature 98.6 F Pulse Rate Pulse Rate [Pulse Oximeter] 79 83 82 Respiratory Rate 22 20 18 Blood Pressure Blood Pressure [Le ft Arm] Blood Pressure [Ri ght Arm] 126/67 Pulse Oximetry 99 Oxygen Delivery Me thod Room Air 05/24/23 23:00 05/25/23 03:00 05/25/23 09:41 Temperature 99.2 F 99.2 F 98.5 F Pulse Rate Pulse Rate [Pulse Oximeter] 82 85 78 Respiratory Rate 18 18 16 Blood Pressure Blood Pressure [Le ft Arm] 117/60 125/68 Blood Pressure [Ri ght Arm] 118/53 L Pulse Oximetry 98 98 100 Oxygen Delivery Me thod Room Air Room Air Room Air Results Labs Labs: Abnormal lab results 05/23/23 05/24/23 05/25/23 Range/Units 21:10 13:50 05:44 RBC 3.76 L (4.30-5.90) m/uL Hgb 7.4 L* 7.0 L* (13.5-17.5) gm/dL Hct 25.4 L (37.0-53.0) % MCV 68 L (80-100) fL MCH 19 L (26-34) pg MCHC 28 L (32-36) gm/dL RDW Coeff of Jayshree 31.1 H (11.5-15.5) % Neut % (Auto) 74.2 H (42.0-72.0) % Lymph % (Auto) 14.0 L (20-44) % Glucose 186 H (60-115) mg/dL Calcium 8.3 L (8.4-10.6) mg/dL Crossmatch (AHG) See Detail Diabetes panel 05/25/23 Range/Units 05:44 Sodium 138 (135-149) mmol/L Potassium 4.1 (3.6-5.1) mmol/L Chloride 103 (96-114) mmol/L Carbon Dioxide 26 (20-32) mmol/L BUN 7 (7-30) mg/dL Creatinine 0.6 (0.5-1.5) mg/dL Glucose 186 H (60-115) mg/dL Calcium 8.3 L (8.4-10.6) mg/dL AST 18 (12-35) U/L ALT 10 (4-50) U/L Alkaline Phosphatase 82 (40-150) U/L Total Protein 6.7 (6.0-8.3) g/dL Albumin 3.5 (3.3-5.0) g/dL Calcium panel 05/25/23 Range/Units 05:44 Calcium 8.3 L (8.4-10.6) mg/dL Albumin 3.5 (3.3-5.0) g/dL Pituitary panel 05/25/23 Range/Units 05:44 Sodium 138 (135-149) mmol/L Potassium 4.1 (3.6-5.1) mmol/L Chloride 103 (96-114) mmol/L Carbon Dioxide 26 (20-32) mmol/L BUN 7 (7-30) mg/dL Creatinine 0.6 (0.5-1.5) mg/dL Glucose 186 H (60-115) mg/dL Calcium 8.3 L (8.4-10.6) mg/dL Adrenal panel 05/25/23 Range/Units 05:44 Sodium 138 (135-149) mmol/L Potassium 4.1 (3.6-5.1) mmol/L Chloride 103 (96-114) mmol/L Carbon Dioxide 26 (20-32) mmol/L BUN 7 (7-30) mg/dL Creatinine 0.6 (0.5-1.5) mg/dL Glucose 186 H (60-115) mg/dL Calcium 8.3 L (8.4-10.6) mg/dL Total Bilirubin 1.4 (0.1-1.5) mg/dL AST 18 (12-35) U/L ALT 10 (4-50) U/L Alkaline Phosphatase 82 (40-150) U/L Total Protein 6.7 (6.0-8.3) g/dL Albumin 3.5 (3.3-5.0) g/dL All other labs normal. Progress Note:A&P Assessment and plan (1) Colonic mass: Status: Acute Assessment and Plan: Patient is a 57-year-old male with newly discovered colonic mass. He initially presented with severe anemia. On CT imaging there is evidence of a large hepatic mass, mesenteric mass with associated lymphadenopathy, transverse colon stricture and associated intra-abdominal soft tissue mass. Differential includes aggressive adenocarcinoma versus GIST versus lymphoma. On colonoscopy evidence of an apple-core lesion with narrowed lumen. No evidence of active bleeding. Biopsies were obtained, scope was unable to traverse. At this time he denies any symptoms of obstruction and was able to tolerate colonoscopy prep. Recommend further workup with CT chest, MRI of the liver lesion and CEA. Will follow up with pathology. I discussed with the patient the above findings of metastatic disease. He will need to establish care with Oncology once the pathology results come back. I also reviewed with him the risk for complete obstruction given the significantly narrowed lumen of the transverse colon. We reviewed symptoms for this (abdominal distension, abdominal pain, nausea and vomiting, inability to pass gas). If the patient does progress to complete obstruction he would require emergency surgery in order to decompress the colon and divert stool. At this time he is okay to start a soft diet, low fiber. Will also prescribe daily milk of magnesia to avoid bulky stools.
--- NOTE | 2023-05-25 12:10 | P.IMPN_ITS ---
Exam Const: Vital Signs, click to edit/add: Vital Signs - 24 hr 05/24/23 12:12 05/24/23 13:56 05/24/23 15:37 Temperature 98.8 F 98.2 F 99.2 F Pulse Rate 79 80 Pulse Rate [Pulse Oximeter] 79 Respiratory Rate 20 20 22 Blood Pressure 124/69 146/75 H Blood Pressure [Le ft Arm] Blood Pressure [Ri ght Arm] 131/72 Pulse Oximetry 97 99 99 Oxygen Delivery Me thod Room Air 05/24/23 15:37 05/24/23 19:00 05/24/23 23:00 Temperature 98.6 F Pulse Rate Pulse Rate [Pulse Oximeter] 79 83 82 Respiratory Rate 22 20 18 Blood Pressure Blood Pressure [Le ft Arm] Blood Pressure [Ri ght Arm] 126/67 Pulse Oximetry 99 Oxygen Delivery Me thod Room Air 05/24/23 23:00 05/25/23 03:00 05/25/23 09:41 Temperature 99.2 F 99.2 F 98.5 F Pulse Rate Pulse Rate [Pulse Oximeter] 82 85 78 Respiratory Rate 18 18 16 Blood Pressure Blood Pressure [Le ft Arm] 117/60 125/68 Blood Pressure [Ri ght Arm] 118/53 L Pulse Oximetry 98 98 100 Oxygen Delivery Me thod Room Air Room Air Room Air Labs Labs: Laboratory Results - last 24 hr 05/23/23 05/24/23 05/24/23 21:10 11:25 13:50 WBC RBC Hgb 7.4 L* Hct MCV MCH MCHC RDW Coeff of Jayshree Plt Count Neut % (Auto) Lymph % (Auto) [place] % (Auto) Eos % (Auto) Baso % (Auto) Neut # (Auto) Lymph # (Auto) [place] # (Auto) Eos # (Auto) Baso # (Auto) Abs Immat Gran (auto) Imm/Tot Granulo (auto) Sodium Potassium Chloride Carbon Dioxide Anion Gap BUN Creatinine Estimated Creat Clear Estimated GFR Glucose Calcium Total Bilirubin Direct Bilirubin AST ALT Alkaline Phosphatase Total Protein Albumin Stool Occult Blood Lab Acknowledgement Blood Type AB Positive Antibody Screen NEGATIVE Direct Antiglob Test NEGATIVE Crossmatch (AHG) See Detail 05/24/23 05/25/23 05/25/23 17:48 05:44 08:20 WBC 8.43 RBC 3.76 L Hgb 7.0 L* Hct 25.4 L MCV 68 L MCH 19 L MCHC 28 L RDW Coeff of Jayshree 31.1 H Plt Count 346 Neut % (Auto) 74.2 H Lymph % (Auto) 14.0 L [place] % (Auto) 8.9 Eos % (Auto) 2.3 Baso % (Auto) 0.2 Neut # (Auto) 6.30 Lymph # (Auto) 1.20 [place] # (Auto) 0.80 Eos # (Auto) 0.19 Baso # (Auto) 0.02 Abs Immat Gran (auto) 0.03 Imm/Tot Granulo (auto) 0.4 Sodium 138 Potassium 4.1 Chloride 103 Carbon Dioxide 26 Anion Gap 9 BUN 7 Creatinine 0.6 Estimated Creat Clear 155.36 Estimated GFR 113 Glucose 186 H Calcium 8.3 L Total Bilirubin 1.4 Direct Bilirubin 0.2 AST 18 ALT 10 Alkaline Phosphatase 82 Total Protein 6.7 Albumin 3.5 Stool Occult Blood Positive Lab Acknowledgement Test Added Blood Type Antibody Screen Direct Antiglob Test Crossmatch (AHG)
[2023-05-25 12:21] VITALS: BP 132/75; PULSE 83; RESP 16; TEMP 36.7; O2SAT 99
[2023-05-25 12:30] LABS: Hemoglobin* 7.6 gm/dL (13.5-17.5)
[2023-05-25] MEDS: INSULIN ASPART 100 UNIT/ML SUBCUT (13:10)
--- NOTE | 2023-05-25 13:21 | NUTR.NU ---
RDN with MD consult for diet education for surgical soft diet. Patient admitted for anemia, found to have colon mass. Current weight 324lbs; height 6ft 1in; BMI is obese at 42.9 kg/m2. RDN visited with patient and whom agreed to receive diet education related to surgical soft diet. Patient was provided diet education on a low fiber/surgical soft diet. Discussed foods to include and foods to avoid until MD recommends advancing diet. Included in education was eating smaller meals more often (5-6x/day) versus 3 large meals daily and choosing soft/tender proteins at each meal. Verbal and written information as well as sample menus provided on both diets from [facility]. Patient verbalized understanding. RDN's contact information was provided and patient was encouraged to contact RDN with questions.
--- NOTE | 2023-05-25 13:52 | PC.NURSE ---
End of shift report: Patient alert and oriented X3. Vital signs within normal limits. Ambulating independently. Denies SOB or dizziness. Hbg checked X2 today. Last check was 7.6. Patient stated I can actually breath again. Patient had an EGD and colonoscopy this morning. See MD note for results. Had MRI of abdomen and CT scan of chest. Results still pending from this. Patient's sister visited today and spoke in length with MD about results of tests. PIV patent. Voiding without difficulty. Passing loose stool since bowel prep. No blood noted per patient. Advanced to a soft surgical diet. General surgery was consulted and saw patient today. Lung sounds clear. Plan is to DC patient this afternoon and f/u with PCP while pathology results are pending and to repeat a hbg.
--- NOTE | 2023-05-25 14:42 | PM.DS1 ---
DS: Providers Provider Time Seen by Provider: 09:11 Date Seen: 05/25/23 Date of admission: 05/23/23 21:49 Primary care physician: Patrick Kirk MD Admitting Clinician: Calroz Bah MD Consults: 05/25/23 11:12 Consult to Nutrition [CONS] Routine Comment: Reason for consult:: Miscellaneous Comment: talk about options and nutrition for soft diet Attending Physician on discharge: Lauren Valentine MD Date of Discharge: 05/25/23 DS: Diagnosis Discharge Diagnosis (1) Colonic mass: Status: Acute Problem details: He lung, liver, and lymphatic lesions in addition to colon mass, concerning for probable metastatic colon cancer, pathology is pending. (2) Diabetes 1.5, managed as type 1: Status: Acute Problem details: Resume home insulin and metformin. (3) Hypertension: Status: Chronic Problem details: hold blood pressure medicines pending identifying source of anemia (4) Ascending aorta dilation: Status: Chronic Problem details: 4.1 cm, Echo 03/2023 (5) Dyspnea on exertion: Status: Acute Problem details: - Suspect this is at least in part due to anemia. Echocardiogram in March of 2023 to evaluate his dyspnea. He had an ejection fraction of 60-65%. Mild LVH and enlarged RV with reduced RV function. April 27 he had a myocardial perfusion stress test which was normal (6) Symptomatic anemia: Status: Acute Problem details: - Microcytic anemia. Obtain direct albertina test. Suspect iron deficiency. Suspect blood-loss anemia from occult GI source despite negative guaiac. PPI. Obtaining [address] abd/pelvis to look for GI bleed. Clears today. Ordered EGD/Colonoscopy for tomorrow. Prep today. - Hgb is now stable at 7.6 on discharge (up from 3.8 after 3 units). He had a total of 6 units packed red blood cells. He is no longer symptomatic. (7) BANG on CPAP: Status: Chronic Problem details: home CPAP (8) Hyperkalemia: Status: Resolved Problem details: Restart lisinopril for discharge, recheck BMP later this week. DS: Summary Hospital Course Hospital Course: This is a 57-year-old male who has been feeling unwell with shortness of breath and fatigue for at least 4 months. He had started in outpatient workup which included going to pulmonology and an outpatient hemoglobin revealed severe anemia. He was sent to the emergency department. Hemoglobin was confirmed to be 3.8. He was admitted for blood transfusion and further workup. He received a total of 6 units packed red blood cells and his hemoglobin is now stable at 7.6 today on discharge. His symptoms have improved as well although he remains pale. He will be following up with his primary care provider later this week for another hemoglobin and to determine if he is feeling better enough to go back to work. CT abdomen, MRI abdomen, CT chest and EGD and colonoscopy were done and results are below. It is likely that he has a metastatic colorectal cancer, although the exact diagnosis is to be determined once pathology results from colon mass biopsy done this morning are back. Patient is in improved and stable condition for discharge home today. Today I spent 90 minutes discharging the patient, this includes a phone call with Dr. Early, conversations with Dr. Davis, multiple conversations with the patient and later with his sister as well. Time Spent with Patient Time attestation: Total time spent providing and/or coordinating discharge services: Exam Narrative: Exam Narrative: General: No acute distress. Awake, alert, oriented. Pallor noted. No jaundice. Oropharynx: Clear. Mucous membranes moist. Cardiovascular: Regular rate and rhythm. No murmurs, gallops, or rubs. Respiratory: Clear to auscultation bilaterally. No wheezes or crackles. Abdomen: Bowel sounds present. Soft, nondistended, nontender. Extremities: 3+ bilateral lower extremity edema. Const: Vital Signs, click to edit/add: Vital Signs - 24 hr 05/24/23 15:37 05/24/23 15:37 05/24/23 19:00 Temperature 99.2 F 98.6 F Pulse Rate [Pulse Oximeter] 79 79 83 Respiratory Rate 22 22 20 Blood Pressure [Le ft Arm] Blood Pressure [Ri ght Arm] 131/72 126/67 Pulse Oximetry 99 99 Oxygen Delivery Me thod Room Air Room Air 05/24/23 23:00 05/24/23 23:00 05/25/23 03:00 Temperature 99.2 F 99.2 F Pulse Rate [Pulse Oximeter] 82 82 85 Respiratory Rate 18 18 18 Blood Pressure [Le ft Arm] 117/60 Blood Pressure [Ri ght Arm] 118/53 L Pulse Oximetry 98 98 Oxygen Delivery Me thod Room Air Room Air 05/25/23 09:41 05/25/23 12:21 Temperature 98.5 F 98.0 F Pulse Rate [Pulse Oximeter] 78 83 Respiratory Rate 16 16 Blood Pressure [Le ft Arm] 125/68 Blood Pressure [Ri ght Arm] 132/75 Pulse Oximetry 100 99 Oxygen Delivery Md thod Room Air Room Air DS: Data Data Completed and Pending Completed studies during hospitalization: 05/23/2023 EKG: Sinus rhythm with first-degree AV block with premature ventricular complexes or fusion complexes, 89 beats per minute, otherwise normal EKG. Ordering Physician: Laruen Valentine M.D. Date of Service: 05/24/23 Procedure(s): CT angio abd pel GI Bleed Accession Number(s): [id number] cc: Lauren Valentine M.D.; Patrick Kirk M.D.~ For Patients: As a result of the Cures Act, medical imaging exams and procedure reports are released immediately into your electronic medical record. You may view this report before your referring provider. If you have questions, please contact your health care provider. INDICATION: SEVERE ANEMIA, SUSPECTGI BLEED TECHNIQUE: CT abdomen and pelvis acquired without and with 150 cc Isovue 370 IV contrast. COMPARISON: None. FINDINGS: LOWER CHEST: The heart is at the upper limits of normal in size. No pericardial effusion. Aortic valve calcifications. There is an oval 2 centimeter pulmonary nodule in the right lower lobe with laminated calcifications. No focal airspace consolidation, pleural effusion, or pneumothorax. ABDOMEN/PELVIS: Large region of decreased attenuation along the right hepatic lobe that measures approximately 6.9 x 5.3 centimeters in greatest dimension and is overall similar in appearance on non contrasted, arterial phase, and delayed phase imaging. Cholelithiasis without CT evidence of acute cholecystitis. No ductal dilatation. The spleen, pancreas, and bilateral adrenal glands are unremarkable in appearance. The kidneys perfuse in a normal fashion. No suspicious enhancing renal masses or lesions. Simple appearing renal cysts bilaterally. There is a nonobstructing 9 millimeter calculus at the interpolar region of the left kidney. No hydroureteronephrosis. Circumferential bladder wall thickening, likely secondary to underdistention. There is no evidence of bowel obstruction. The appendix is normal. Redundant sigmoid colon. There is a soft tissue density mass within the central abdomen that measures approximately 3.7 x 3.3 centimeters (series number 12, image 97). There are some adjacent smaller lymph nodes in the central abdomen with increased attenuation of the central mesenteric fat. No evidence of active arterial bleeding. The abdominal aorta is normal in caliber. The celiac axis, SMA, single renal arteries, and SHANAE are widely patent. SOFT TISSUE/MUSCULOSKELETAL: Small fat containing umbilical hernia. No acute fracture or malalignment. No suspicious osseous lesions. There is some degenerative changes of the lower thoracic spine. IMPRESSION: 1. No CT evidence of active arterial bleeding involving the abdomen or pelvis. 2. There is a minimally enhancing soft tissue density mass within the central abdomen that measures approximately 3.7 x 3.3 centimeters. Differential consideration includes desmoid tumor versus lymphoma. 3. Increased attenuation of the central mesenteric fat (edenilson mesentery sign) a nonspecific finding which can be seen with mesenteric lymphoma among other entities. 4. Geographic region of decreased attenuation in the right hepatic lobe measuring approximately 6.9 x 5.3 centimeters that is not significantly change on arterial or portal venous phases, incompletely characterized on this exam but favored to represent region of geographic steatosis. 5. Recommend nonemergent, outpatient MRI abdomen with a liver protocol for further assessment of the hepatic region of decreased attenuation as well as the central soft tissue density mass in the central abdomen. 6. Oval, 2 centimeter pulmonary nodule in the right lower lobe with laminated calcifications, likely benign. Recommend correlation with prior imaging if available. Please note that all CT scans at this facility use dose modulation, iterative reconstruction, and/or weight-based dosing when appropriate to reduce radiation dose to as low as reasonably achievable. Dictated by Chavo Nava MD @ 05/24/2023 4:29:40 PM (Electronically Signed) Ordering Physician: Lauren Valentine M.D. Date of Service: 05/25/23 Procedure(s): MR abdomen wo/w con Accession Number(s): [id number] cc: Lauren Valentine M.D.; Patrick Kirk M.D.~ For Patients: As a result of the 21st Century Cures Act, medical imaging exams and procedure reports are released immediately into your electronic medical record. You may view this report before your referring provider. If you have questions, please contact your health care provider. Indication: Anemia, mass on CT Technique: Multiplanar multisequence images were obtained pre and post gadolinium. Patient received 20 cc Dotarem intravenously for the study Comparison: Abdomen and pelvis CT 05/24/2023 Findings: Liver: Slight T2 hyperintensity within the right lobe in segment 7 which appears represent some enhancement post gadolinium, probably part of a prominent vessel (8, 9). Contour abnormality within segment 4 with a T1 hypointense and heterogeneous T2 lesion which does not show significant enhancement measuring 6.8 x 5.5 centimeters. Gallbladder: Cholelithiasis without pericholecystic inflammation. Pancreas: Unremarkable. Spleen: Unremarkable. Adrenal glands: Unremarkable. Kidneys: Symmetric enhancement with bilateral renal cysts. No hydronephrosis. Vascular: Unremarkable. Bowel and mesentery: T1 hypo intense lesion within the mesentery inferior to the left lobe of the liver with rim enhancement measuring 4.4 x 4.6 centimeters consistent with mesenteric adenopathy. Adjacent prominent irregular bowel wall thickening of the transverse colon (series 18, image 53). Other: Soft tissue nodule within the right lower lobe measuring 2.0 centimeters. Impression: 1. Hypointense lesion within segment 4 measuring to 6.8 centimeters with MR characteristics most consistent with metastatic disease. See comments below. 2. Irregular, annular wall thickening of the mid transverse colon with adjacent mesenteric mass measuring 4.6 centimeters. Appearance is most consistent with colon cancer at the transverse colon with adjacent lymph node spread and liver metastases. 3. Soft tissue nodule within the right lower lobe. Suggest CT chest for further characterization. Dictated by Emanuel Eller MD @ 05/25/2023 2:19:41 PM (Electronically Signed) Ordering Physician: Lauren Valentine M.D. Date of Service: 05/25/23 Procedure(s): CT chest w con Accession Number(s): [id number] cc: Lauren Valentine M.D.; Patrick Kirk M.D.~ For Patients: As a result of the 21st Century Cures Act, medical imaging exams and procedure reports are released immediately into your electronic medical record. You may view this report before your referring provider. If you have questions, please contact your health care provider. INDICATION: Colon cancer staging TECHNIQUE: Axial images were obtained from the thoracic inlet to the diaphragm. Reformats: Coronal and sagittal IV Contrast: 75 cc Isovue 370 COMPARISON: None. FINDINGS: Mediastinum: No pericardial effusion. Thoracic aorta is normal in caliber. Subjectively moderate calcification of the aortic valve. Sub centimeter mediastinal lymph nodes. Subcentimeter right hilar lymph nodes. Lungs and Pleural Space: No pleural effusion or pneumothorax. Pulmonary nodule within the right lower lobe measuring 2.0 centimeters with rim calcification. Left upper lobe pulmonary nodule measuring 2.2 x 1.5 centimeters (3, 38). Chest wall: No masses. Upper abdomen: Hypodense mass within segment 4 of the liver, mesenteric mass adjacent to the transverse colon, mass at the root of the mesentery, wall thickening of the transverse colon. Nonobstructing nephrolithiasis. Cholelithiasis. Bones: Unremarkable for age. IMPRESSION: Pulmonary nodules in the right lower lobe with rim calcification and left upper lobe pulmonary nodule with some partial calcification along its rim. Although rim calcification is a more uncommon form of pulmonary nodular calcification, in the setting of colon cancer these would be considered suspicious lesions (calcified pulmonary nodules are less commonly seen in untreated metastatic disease, however the exceptions include mucinous colon cancer). Please note that all CT scans at this facility use dose modulation, iterative reconstruction, and/or weight-based dosing when appropriate to reduce radiation dose to as low as reasonably achievable. Dictated by Emanuel Eller MD @ 05/25/2023 2:34:35 PM (Electronically Signed) Labs on day of discharge: Labs from last 24 hours 05/25/23 05/25/23 05/25/23 12:21 08:20 05:44 WBC 8.43 RBC 3.76 L Hgb 7.6 L* 7.0 L* Hct 25.4 L MCV 68 L MCH 19 L MCHC 28 L RDW Coeff of Jayshree 31.1 H Plt Count 346 Neut % (Auto) 74.2 H Lymph % (Auto) 14.0 L [place] % (Auto) 8.9 Eos % (Auto) 2.3 Baso % (Auto) 0.2 Neut # (Auto) 6.30 Lymph # (Auto) 1.20 [place] # (Auto) 0.80 Eos # (Auto) 0.19 Baso # (Auto) 0.02 Abs Immat Gran (auto) 0.03 Imm/Tot Granulo (auto) 0.4 Sodium 138 Potassium 4.1 Chloride 103 Carbon Dioxide 26 Anion Gap 9 BUN 7 Creatinine 0.6 Estimated Creat Clear 155.36 Estimated GFR 113 Glucose 186 H Calcium 8.3 L Total Bilirubin 1.4 Direct Bilirubin 0.2 AST 18 ALT 10 Alkaline Phosphatase 82 Total Protein 6.7 Albumin 3.5 CA (off-site) Pending Stool Occult Blood Lab Acknowledgement Test Added Blood Type Antibody Screen Crossmatch ([facility]) 05/24/23 05/23/23 17:48 21:10 WBC RBC Hgb Hct MCV MCH MCHC RDW Coeff of Jayshree Plt Count Neut % (Auto) Lymph % (Auto) [place] % (Auto) Eos % (Auto) Baso % (Auto) Neut # (Auto) Lymph # (Auto) [place] # (Auto) Eos # (Auto) Baso # (Auto) Abs Immat Gran (auto) Imm/Tot Granulo (auto) Sodium Potassium Chloride Carbon Dioxide Anion Gap BUN Creatinine Estimated Creat Clear Estimated GFR Glucose Calcium Total Bilirubin Direct Bilirubin AST ALT Alkaline Phosphatase Total Protein Albumin CA (off-site) Stool Occult Blood Positive Lab Acknowledgement Blood Type AB Positive Antibody Screen NEGATIVE Crossmatch ([facility]) See Detail Discharge Plan Discharge Disposition: Home, Self-Care Date of Admission: 05/23/23 21:49 Attending Provider on Discharge: Lauren Valentine Primary Care Provider: Patrick Kirk Condition: Stable Anticipated Discharge Date/Time: 05/25/23 14:47 Discharge Medications: Continued furosemide 40 mg tablet 40 mg PO QAM Qty: 90 1RF ezetimibe 10 mg tablet 10 mg PO QDAY levothyroxine 50 mcg tablet 50 mcg PO DAILY atorvastatin 10 mg tablet 40 mg PO .Bedtime omega-3 fatty acids 1,000 mg capsule 1,000 mg PO QDAY metformin 500 mg tablet 500 mg PO TIDWMEAL lisinopril 10 mg tablet 10 mg PO QDAY Trulicity 3 mg/0.5 mL pen injector 3 mg subcut QWEEK Humulin R U-500 (Conc) Insulin 500 unit/mL solution 85 unit subcut TID Discontinued ofloxacin 0.3 % drops See Rx Instructions ophthalmic (eye) .COMPLEX Qty: 10 0RF Rx Instructions: put 1-2 drps into affected eye(s) every 2-4 h x 2 days, then 1-2 drps 4 times/day days 3-7 ophthalmic (eye) amlodipine 5 mg tablet 5 mg PO DAILY aspirin 81 mg capsule 81 mg PO QDAY Discharge Orders: Discharge Order (Routine); Ordered 05/25/23 Ordered By: Lauren Valentine Patient Education: Anemia (DC) Additional Instructions: Dr. Davis will call you with the pathology results later this week. Please follow up with Dr. Kirk this week to get a hemoglobin rechecked and determine when it is okay for you to return to work. Avoid aspirin and NSAIDs (motrin, advil, aleve, etc.). Return for bright red blood in your stool, worsening weakness or shortness of breath. Return for signs of a bowel obstruction: nausea, vomiting, unable to keep food down, not passing any gas or stool. Activity Level: Activity as Tolerated Discharge Diet: Other Diet Detail: soft foods Follow Up Appointments: Patrick Kirk MD [Primary Care Provider] - (2-3 days, hemoglobin, BMP) Forms: Work/School Release, [facility] Info Instructions
[2023-05-25 15:00] VITALS: BP 138/69; PULSE 86; RESP 20; O2SAT 96
--- NOTE | 2023-05-25 17:08 | PC.NURSE ---
Discharge Summary: Patient pleasant and cooperative. Denies pain. Up independently. Patient discharged home at 1645 with all personal belongings accompanied by sister. Discharge instructions including diagnosis, medications and follow up plan discussed with patient and voiced understanding.
[2023-05-27 04:03] LABS: Carcinoembryonic Antigen 8.6 ng/mL (<=3.8)
== END 2023-05-25 16:45 | disposition home or self-care (01) | DRG 375 ==
LOC: ED 21:31 → MEDSURG 21:46
PROVIDERS: Family Medicine; Admitting Provider Family Medicine; Emergency Provider Family Medicine; PCP Family Medicine; Visit Provider Family Medicine
DX: C18.3 Malignant neoplasm of hepatic flexure (principal); C77.1 Secondary and unspecified malignant neoplasm of intrathoracic lymph nodes; C77.2 Secondary and unspecified malignant neoplasm of intra-abdominal lymph nodes; C78.7 Secondary malignant neoplasm of liver and intrahepatic bile duct; C78.01 Secondary malignant neoplasm of right lung; Z68.41 Body mass index [BMI] 40.0-44.9, adult; K56.690 Other partial intestinal obstruction; D50.0 Iron deficiency anemia secondary to blood loss (chronic); R06.02 Shortness of breath; E13.9 Other specified diabetes mellitus without complications; Z79.84 Long term (current) use of oral hypoglycemic drugs; Z79.4 Long term (current) use of insulin; E66.9 Obesity, unspecified; G47.33 Obstructive sleep apnea (adult) (pediatric); I10 Essential (primary) hypertension; E87.5 Hyperkalemia
CPT/HCPCS: 00813; 36415; 36430; 43239; 45380; 45381; 71260; 74174; 74183; 80048; 80076; 81275; 81288; 81311; 81479; 82270; 82378; 82962; 83540; 83550; 84484; 85018; 85025; 85045; 86850; 86880; 86900; 86901; 86922; 88305; 88341; 88342; 93005; 94761; 99283; 99284; A9270; A9575; C9113; J1940; J2704; P9016; Q9967

== ENCOUNTER 2023-06-10 06:16 | Inpatient (IN) | payer OTHER, SELFPAY ==
[2023-06-10] VITALS (21 sets, daily range): BP systolic 106–150; BP diastolic 48–85; PULSE 87–94; RESP 16–20; TEMP 36.4–37; O2SAT 9–100; BMI 43.6
[2023-06-10] MEDS: LACTATED RINGERS 1000 ML 1,000 ML 100 ML IV ×2 (06:10→09:05)
[2023-06-10] MEDS: SODIUM CHLORIDE 0.9 % (FLUSH) 10 ML SYRINGE IVF (06:37)
--- NOTE | 2023-06-10 07:30 | XR_ITS ---
Final Report Patient: AIDAN KENDRICK Facility:?[facility] Patient ID:?[id number] Site Patient ID:?[id number]. Site :?[id number] Study:?XRay Chest PORT PLACEMENT-06/10/2023 8:56:48 AM Ordering Physician:JAREN Final Report: INDICATION: Port-A-Cath placement. TECHNIQUE: Fluoroscopically guided intraoperative evaluation at the time of Port-A-Cath placement. A single spot image was obtained. FINDINGS: Right-sided Port-A-Cath with its lead tip in the upper superior vena cava. 1 minute 2 seconds fluoroscopy time utilized. The patient is intubated. IMPRESSION: Right-sided Port-A-Cath placement. 1 minute 2 seconds fluoroscopy time utilized. Dictated by Nikita Meza MD @ 06/10/2023 10:51:58 AM (Electronic Signature)
[2023-06-10] MEDS: ERTAPENEM 1 GM in 0.9 % SODIUM CHLORIDE Mini-bag 100 ML IVPB (07:52)
[2023-06-10] MEDS: LIDOCAINE 1 % PF 30 ML INJECTION (08:13)
[2023-06-10] MEDS: BUPIVACAINE 0.5% 30 ML INJECTION (08:13)
[2023-06-10] MEDS: HEPARIN 500 UNIT/5 ML SYRINGE IVF (08:34)
[2023-06-10] MEDS: 0.9 % SODIUM CHLORIDE 50 ml INJECTION (08:34)
--- NOTE | 2023-06-10 08:50 | W.ANESCHARGE ---
Anesthesia Charges Start Date/Time Anesthesia Start Date: 06/10/23 Anesthesia Start Time: 07:42 Stop Date/Time Anesthesia Stop Date: 06/10/23 Anesthesia Stop Time: 11:33
--- NOTE | 2023-06-10 09:02 | SUR.OPER ---
2ND TIME OUT DONE @1585
--- NOTE | 2023-06-10 11:41 | W.ANESCHARGE ---
Anesthesia Charges Start Date/Time Anesthesia Start Date: 06/10/23 Anesthesia Start Time: 07:42 Stop Date/Time Anesthesia Stop Date: 06/10/23 Anesthesia Stop Time: 11:33
--- NOTE | 2023-06-10 12:49 | PM.IMCN1 ---
Date of Consult Consult date: 06/10/23 Requesting Physician: General Surgery Primary Care Provider: Patrick Kirk MD Consult Narrative Reason for consult: Narrative: HOSPITALIST CONSULT Hospital Day # 1 Post Op Day # 0 -Lap loop diverting ileostomy, port placement (Dr. Davis 06/10/23) 57-year-old gentleman who presented with anemia in early May and was found to have adenocarcinoma, low-grade moderately differentiated, with liver metastases, loss of DNA mismatch repair enzymes MLH1 with secondary loss of PMS2 (B Tex testing pending) and extended RASS/Tex/ERBB2 panel pending, underwent diverting loop ileostomy to prevent impending obstruction today 06/10/[address] Davis. He also had a port placed. The hospital medicine team was asked by Gen Surg team to manage the patient's diabetes, insulin requiring with recent hyperkalemia, and BANG/CPAP. There have been no perioperative concerns or questions. [facility] and Medications and Allergies in the Expanse tabs REVIEW OF SYSTEMS: 12-point ROS completed with patient and negative unless otherwise stated in HPI or below. PHYSICAL EXAM: CODE STATUS: FULL CODE CONSTITUTIONAL: Conversive, good historian. A/O. Knows setting and context. VITAL SIGNS: see record. HEENT: Normocephalic, atraumatic. PERRL, EOMI, conjunctivae pink, no scleral icterus. Ears and nose externally normal. Pharynx normal. NECK: No JVD. No carotid bruit, no thyromegaly, no adenopathy. CHEST: Clear to auscultation bilaterally HEART: No harsh murmurs. S1/S2. ABDOMEN: obese. stoma and ostomy noted in the right lower abdmen. stoma pink and draining serosanginous fluid. EXTREMITIES: No edema. NEURO: Cranial nerves intact. Normal affect. No gross deficits. Speech intelligible. SKIN: No rashes, petechiae, concerning changes PSYCHIATRIC: Euthymic. INVESTIGATIONS: EMR Reviewed -hemoglobin 7.6 postoperatively -potassium was 5.5, sodium 134, blood sugar 283 -creatinine 1.0 DISPOSITION: MedSur inpatient DVT: low dose LMWH to start 06/11 GI: PO intake (clears until ostomy is functioning) PFSH PFS Medical History (Updated 06/10/23 @ 13:22 by Adilene Roberson MD) Ascending aorta dilation ?I77.810 - Thoracic aortic ectasia (ICD-10) Family history of brain cancer ?Z80.8 - Family history of malignant neoplasm of other organs or systems (ICD-10) Snoring ?R06.83 - Snoring (ICD-10) Excessive daytime sleepiness ?G47.19 - Other hypersomnia (ICD-10) Surgical History (Updated 06/10/23 @ 13:13 by Adilene Roberson MD) Port-A-Cath in place ?Z95.828 - Presence of other vascular implants and grafts (ICD-10) Status post ileostomy ?Z93.2 - Ileostomy status (ICD-10) History of tympanostomy tube placement ?Z96.22 - Myringotomy tube(s) status (ICD-10) S/P adenoidectomy ?Z90.89 - Acquired absence of other organs (ICD-10) Social History Narrative: He lives in [place]. 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 He does not smoke. He rarely drinks alcohol. Code status is DNR. His oldest child, Des campbell, is healthcare power of workers compensation defense attorney What is your current living situation?: I presently have a place to live Problems where you live: other Problems where you live details: NA In the past 12 months, utilities in danger of being shut off: no In past 12 months, lack of transportation kept you from medical appts, meetings, work, or getting things needed for daily living: no In the past 12 mos, have been you worried that your food would run out before you had money to buy more?: never true In the past 12 mos, the food you bought just didn't last and you didn't have money to buy more?: never true Smoking Status: Never smoker Do you use any of these nicotine containing products: None Second hand tobacco smoke exposure: No How often do you have a drink containing alcohol: monthly or less How many standard drinks containing alcohol do you have on a typical day: 3 or 4 How often do you have six or more drinks on one occasion: Never AUDIT-C Alcohol total score: 2 Non-prescribed substance use: denies use Caffeine: Yes How often does anyone, including family, friends and others, physically hurt you: never How often does anyone, including family, friends and others, insult or talk down to you: never How often does anyone, including family, friends and others, threaten you with harm: never How often does anyone, including family, friends and others, scream or curse at you: never Meds Home Medications and Allergies Home Medications Medication Instructions Recorded Confirmed Type ezetimibe 10 mg tablet 10 mg PO DAILY 02/24/22 06/10/23 History levothyroxine 50 mcg tablet 50 mcg PO DAILY 02/24/22 06/10/23 History omega-3 fatty acids 1,000 mg 1,000 mg PO DAILY 02/24/22 06/10/23 History capsule dulaglutide 3 mg/0.5 mL 3 mg subcut QWEEK 03/19/22 06/10/23 History subcutaneous pen injector (Trulicity) metformin 500 mg tablet 1,000 mg PO BIDWM 06/02/23 06/10/23 History amlodipine 5 mg tablet 5 mg PO DAILY 06/10/23 06/10/23 History aspirin-acetaminophen 500 mg-325 1 packet PO Q6H PRN 06/10/23 06/10/23 History mg oral packet (Goody's Back and Body Pain) atorvastatin 40 mg tablet 40 mg PO DAILY 06/10/23 06/10/23 History insulin regular hum U-500 conc 500 85 unit subcut 3XD 06/10/23 06/10/23 History unit/mL(3 mL) subcut pen (Humulin R U-500 (Conc) Insulin Kwikpen) lisinopril 10 mg tablet 10 mg PO DAILY 06/10/23 06/10/23 History ondansetron HCl 4 mg tablet 4 mg PO Q8H PRN nausea and vomiting 06/10/23 06/10/23 History Allergies Allergy/AdvReac Type Severity Reaction Status Date / Time No Known Drug Allergies Allergy Verified 06/10/23 06:22 Exam Const: Vital Signs, click to edit/add: Vital Signs - 24 hr 06/10/23 06:40 06/10/23 11:28 06/10/23 11:35 Temperature 97.8 F 98.3 F Pulse Rate 91 93 89 Respiratory Rate 16 17 16 Blood Pressure 129/72 120/64 117/59 L Blood Pressure [Le ft Arm] Pulse Oximetry 96 96 100 Oxygen Delivery Me thod Room Air OxyMask OxyMask Oxygen Flow Rate 6 4 06/10/23 11:40 06/10/23 11:45 06/10/23 11:50 Temperature 97.8 F Pulse Rate 89 90 87 Respiratory Rate 16 18 18 Blood Pressure 124/68 122/64 125/69 Blood Pressure [Le ft Arm] Pulse Oximetry 100 96 98 Oxygen Delivery Me thod Room Air Room Air Room Air Oxygen Flow Rate 06/10/23 11:55 06/10/23 12:00 06/10/23 12:10 Temperature 98.0 F 98.1 F Pulse Rate 88 89 88 Respiratory Rate 17 18 18 Blood Pressure 131/70 127/74 Blood Pressure [Le ft Arm] 124/69 Pulse Oximetry 95 95 93 Oxygen Delivery Me thod Room Air Room Air Oxygen Flow Rate Assessment and Plan Assessment and plan (1) Status post ileostomy: Problem comment: 06/10/23 - Dr. Davis. no complications. clears 06/10 until ostomy is draining LMWH starting 06/11 hold metformin and provide insulin to cover BS Status: Acute (2) Adenocarcinoma of colon: Problem comment: Dx 05/2023 - presented with hb of 3.8 Dr. Mcnair consulting oncology Dr. Davis gen surgery low-grade moderately differentiated, with liver metastases, loss of DNA mismatch repair enzymes MLH1 with secondary loss of PMS2 (B Tex testing pending) and extended RASS/Tex/ERBB2 panel pending Status: Acute (3) Type 2 diabetes mellitus: Problem comment: A1C 6.8 06/04/21 hold metformin until eating regular diet. cover with regular insulin (scheduled and sliding scale support) continue home Trulity dosing Status: Acute (4) Hypertension: Problem comment: continue amlodipine, lisinopril, lasix, Status: Chronic (5) BANG on CPAP: Problem comment: home unit Status: Chronic (6) Obesity: Status: Acute (7) Symptomatic anemia: Problem comment: 7.6 post op 06/10 track daily s/p 6 units packed cells with dx in early 06/12 Status: Acute (8) Hearing loss: Status: Acute (9) Port-A-Cath in place: Problem comment: 06/10/23 - Ryan Status: Acute (10) Hyperkalemia: Status: Acute
[2023-06-10 13:40] LABS: HCO3 VBG 27 mmol/L (21-28); PCO2 VBG 43 mmHG (40-50); PO2 VBG 60.2 mmHG (25-47); pH VBG 7.409 (7.32-7.43)
[2023-06-10] MEDS: LACTATED RINGERS 1000 ML 1,000 ML 125 ML IV (13:45)
[2023-06-10 13:56] LABS: Chloride* 100 mmol/L (96-114); Potassium* 4.6 mmol/L (3.6-5.1); Sodium* 135 mmol/L (135-149)
[2023-06-10 13:59] LABS: Anion Gap 9 mEq/L (7-15); Blood Urea Nitrogen* 17 mg/dL (7-30); Carbon Dioxide* 26 mmol/L (20-32); Creatinine* 0.8 mg/dL (0.5-1.5); Est. Creatinine Clearance* 116.52; Estimated Glomerular Filt Rate 104 ml/min
[2023-06-10 14:00] LABS: Calcium* 8.6 mg/dL (8.4-10.6); Glucose* 300 mg/dL (60-115)
--- NOTE | 2023-06-10 14:17 | P.GSOP_ITS ---
Operative Note Date of procedure: 06/10/23 Pre-op diagnosis: Metastatic adenocarcinoma of the colon Post-op diagnosis: Same Type of Procedure: 1. Ultrasound-guided port a catheter placement 2. Diagnostic laparoscopy 3. Diverting loop ileostomy Indications: Patient is a 57-year-old male with recent diagnosis adenocarcinoma of the colon. During workup he had evidence of metastatic disease to his liver, intra- abdominal and within the mesentery. On colonoscopy evidence of almost complete obstruction due to mass effect from the tumor in the transverse colon. He did meet with Oncology, who recommended port a catheter placement for initiation of chemotherapy as well as diverting loop ileostomy. Risks and benefits of both portions of the procedure were discussed at length with the patient. Risks included, but were not limited to: Bleeding, infection, risk of damage surrounding structures, possible need for additional procedures and postop complication including but not limited to pneumonia, TN, DVT for stroke. Procedure Description: After discussing the risks and benefits of the procedure, the patient signed informed consent.? The operative site was marked and the patient was brought to the operating room and placed on the operating table in supine position.? Care was taken to pad the patient's pressure points.?? The patient was then intubated by anesthesia.?? The operative site was then prepped and draped in the usual sterile fashion.? A time-out was then performed. The patient's right internal jugular vein was visualized using ultrasound. Local anesthetic was injected into the neck skin above the vein. This was accessed percutaneously via Seldinger technique using ultrasound guidance. A skin raine was made around the wire. Next local anesthetic was injected into the skin below the clavicle and along the proposed tract to the neck incision. A skin incision was then made with a 15 blade and a pocket created in the chest wall with cautery. A tunneler was then used to thread the catheter from the chest wall pocket to the neck incision. Once this was done fluoroscopy was brought into the field. Over the wire the tract was dilated using fluoroscopy. The wire and the dilator were then removed leaving the sheath intact in the vein. Through this the catheter was threaded. Using fluoroscopy the catheter was positioned into the distal SVC. The catheter was noted to flush and aspirate easily. The catheter was then connected to the port. The port was juan baljinder in the pocket. It was noted to flush and aspirate easily. This was then locked with heparinized saline. The skin was closed with absorbable suture. Sterile dressings were applied. Sterile dressings were taken down and the surgical field was prepped and draped for a diagnostic laparoscopy with diverting loop ileostomy. The abdomen was entered under direct visualization through a 5 mm Visiport in the left upper quadrant. The abdomen was insufflated with CO2 and briefly surveyed for injury with no evidence. He did have a notable umbilical hernia with a small segment of incarcerated omentum. Two additional 5 mm ports were then placed lateral to the umbilicus and in the left lower quadrant. Patient was noted to have a significant amount of intra-abdominal fat. The patient was placed in Trendelenburg and right-side up position. The omentum was swept cephalad and the cecum identified. This was followed distally towards the transverse colon. Tattooed ink was noted at the transverse colon. The fatty epiploic appendage of the colon was used to retract the cecum towards the abdominal wall. Adhesions of the small bowel to the cecum were taken down with hook cautery to help assist in identification of the terminal ileum. The anti colic fat pad of the terminal ileum was identified. A segment of distal ileum was then chosen approximately 10 cm away from the terminal ileum and grasped. This was able to be brought up to the anterior abdominal wall with no significant tension. Laparoscopic equipment was then removed and attention directed to the anterior abdominal wall. A site was chosen right lateral and superior to the umbilicus. A disc of skin was excised with dissection down to subcutaneous tissue. A crucifix incision was made on the anterior fascia. The rectus muscle was split and the posterior sheath and peritoneum were incised vertically. The opening created in the abdominal wall was sufficient to pass 2 fingers. The previously grasped distal ileum was brought towards the abdominal wall defect and the small bowel grasped with a Jordan. The ileum was passed through this opening. This portion of the procedure was made difficult secondary to the patient's body habitus. The opening of the anterior fascia was then extended by approximately 5 mm inferior, to allow for the loop of small bowel to lie comfortably without tension or torsion. The area was toweled off and the loop of bowel transected along the anti mesenteric border approximately 70%. The distal end of the loop was secured in place with interrupted 3 0 Vicryl suture to the skin edge. The proximal end of the loop was matured using the Libertad technique with multiple interrupted sutures to marta the limb. A well-vascularized, everted loop ileostomy with good protrusion was produced and an ostomy appliance placed. Previous port sites were closed with interrupted 4-0 Monocryl suture with Steri- Strips applied. Instrument sponge and needle counts were correct at the end of the case. The patient was woken and taken to the PACU in stable condition. Findings: Right internal jugular port a catheter. Diverting loop ileostomy. Anesthesia: GETA Surgeon: Ursula Davis MD Estimated blood loss (mL): 20 Condition: stable Disposition: PACU
--- NOTE | 2023-06-10 15:00 | PC.NURSE ---
End of Shift Note: Patient arrived to the unit around 12 noon from pacu. When he first arrived he was very sweaty. States that when his blood sugar gets low he feels sweaty and cold. Blood sugar was check he was 193 but did not want to take any clear liquids in and had just had insulin in PACU. No complaints of pain. Will continue to monitor until next shift.
[2023-06-10] MEDS: HYDROmorphone 0.5 mg/0.5 ml inj IVP (17:49)
[2023-06-10] MEDS: 0.9 % SODIUM CHLORIDE 1000 ml 1,000 ML 125 ML IV (18:36)
[2023-06-10] MEDS: HYDROCODONE-ACETAMIN 5-325 MG 1 TAB PO (19:02)
[2023-06-10 20:20] LABS: Lab Add On Test New Spec Needed
--- NOTE | 2023-06-10 20:35 | PC.NURSE ---
End of Shift ([id number]): Patient pleasant and cooperative. Afebrile. Rating pain in abdomen 6-7/10 and PRN Dilaudid and [place] given x1. Tolerating clear liquids with no nausea. Ostomy with serosanguineous drainage at start of shift and then brown/green liquid drainage. Emptied x1 of 25 mL. Gas heard and also noted in bag. Talked through teaching of emptying ostomy with patient. Patient up to chair and bathroom with SBA.
[2023-06-11] VITALS (11 sets, daily range): BP systolic 110–138; BP diastolic 51–83; PULSE 78–94; RESP 16–20; TEMP 36.7–37; O2SAT 93–96
[2023-06-11] MEDS: HYDROCODONE-ACETAMIN 5-325 MG 1 TAB PO ×4 (01:23→20:21)
[2023-06-11] MEDS: 0.9 % SODIUM CHLORIDE 1000 ml 1,000 ML 125 ML IV (02:22)
--- NOTE | 2023-06-11 05:54 | PC.NURSE ---
Shift note: Pt is doing well with clear liquid diet. Ileostomy started working with greenish content with much gas. Hyperactive bowel sound. Pt slept very late tonight at 0200, said that is his usual sleeping time. Independent in room. highest pain level rate was 9/10 and PRN med given as prescribed. LAP sites are open to air, clean and dry.
[2023-06-11 06:43] LABS: Basophils Percent Auto 0.3 % (0.0-3.0); Eosinophils Percent Auto 0.8 % (0.0-7.0); Immature Granulocytes Pct Auto 0.3 %; Lymphocytes Percent Auto 13.4 % (20-44); Mean Corpuscular HGB Conc 27 gm/dL (32-36); Mean Corpuscular Hemoglobin 19 pg (26-34); Mean Corpuscular Volume 70 fL (80-100); Monocytes Percent Auto 10.2 % (0.0-11.0); Platelet Count* 380 K/uL (140-440); RDW Coefficient of Variation % 29.4 % (11.5-15.5); Red Blood Count 3.73 m/uL (4.30-5.90); White Blood Count* 11.93 K/uL (4.50-11.00)
[2023-06-11] MEDS: LEVOTHYROXINE 50 MCG TABLET PO (06:49)
[2023-06-11 06:51] LABS: Chloride* 101 mmol/L (96-114); Potassium* 4.2 mmol/L (3.6-5.1); Sodium* 133 mmol/L (135-149)
[2023-06-11 06:53] LABS: Creatinine* 0.7 mg/dL (0.5-1.5); Est. Creatinine Clearance* 133.17; Estimated Glomerular Filt Rate 108 ml/min
[2023-06-11 06:54] LABS: Anion Gap 6 mEq/L (7-15); Blood Urea Nitrogen* 15 mg/dL (7-30); Calcium* 8.3 mg/dL (8.4-10.6); Carbon Dioxide* 26 mmol/L (20-32); Glucose* 265 mg/dL (60-115)
[2023-06-11 07:32] LABS: Hemoglobin* 7.1 gm/dL (13.5-17.5)
[2023-06-11 07:33] LABS: Slide Review Reflex Yes
[2023-06-11 07:34] LABS: Slide Review Acceptable Review (Acceptable)
[2023-06-11] MEDS: lisinopriL 10 MG TABLET PO (07:58)
[2023-06-11] MEDS: ATORVASTATIN CALCIUM 40 MG TABLET PO (07:58)
[2023-06-11] MEDS: EZETIMIBE 10 MG TABLET PO (07:59)
[2023-06-11] MEDS: AMLODIPINE 5 MG TABLET PO (07:59)
[2023-06-11] MEDS: FUROSEMIDE 40 MG TABLET PO (08:05)
--- NOTE | 2023-06-11 09:26 | NUTR.NU ---
RDN with MD consult for nutrition education related to new ileostomy. Patient admitted for planned diverting loop ileostomy related to new diagnosis of adenocarinoma with mets to liver. Current weight 232 lbs; Height 6ft 1in; BMI 42.6 kg/m2. Weight has been stable recently. Current diet is Clear Liquids. RDN visited with patient whom reports slowly feeling better. He agreed to receive low fiber diet education related to new ileostomy. Patient was provided diet education related to new ileostomy.? Education provided on following a low fiber diet for the next ~2-4 weeks or per MD recommendation.? Education included recommendations on following a low-fiber diet of less than 13 grams of fiber per day and included foods that are recommended and not recommended.?Included in this education was rehydration information and a review of foods that may cause blockages, gas/odor, and diarrhea. Verbal and written information as well as sample menus provided from [facility] on nutrition therapy for ileostomy and low-fiber diet.?Patient verbalized understanding and had no questions or concerns. RDN's contact information was provided and patient was encouraged to contact RDN with questions.
--- NOTE | 2023-06-11 11:14 | PM.IMPN1 ---
Progress Note: A&P Assessment and plan (1) Status post ileostomy: Problem details: 06/10/23 - Dr. Davis. no complications. clears 06/10 until ostomy is draining LMWH starting 06/11 hold metformin and provide insulin to cover BS Status: Acute (2) Adenocarcinoma of colon: Problem details: Dx 05/2023 - presented with hb of 3.8 Dr. Mcnair consulting oncology Dr. Davis gen surgery low-grade moderately differentiated, with liver metastases, loss of DNA mismatch repair enzymes MLH1 with secondary loss of PMS2 (B Tex testing pending) and extended RASS/Tex/ERBB2 panel pending Status: Acute (3) Type 2 diabetes mellitus: Problem details: A1C 6.8 06/04/21 hold metformin until eating regular diet. cover with regular insulin (scheduled and sliding scale support) continue home Trulity dosing Status: Acute (4) Hypertension: Problem details: continue amlodipine, lisinopril, lasix, Status: Chronic (5) BANG on CPAP: Problem details: home unit Status: Chronic (6) Obesity: Status: Acute (7) Symptomatic anemia: Problem details: 7.6 post op 06/10 track daily s/p 6 units packed cells with dx in early 06/12 7.1 on the morning of 06/11. 1 unit of packed cells ordered. Status: Acute (8) Hearing loss: Status: Acute (9) Port-A-Cath in place: Problem details: 06/10/23 - Ryan Status: Acute (10) Hyperkalemia: Problem details: Resolve Status: Acute Subjective Date Seen: 06/11/23 Interval history: Daily Progress Note - Hospital Medicine Hospital Day # 2 Post Op Day # 1 1. Ultrasound-guided port a catheter placement 2. Diagnostic laparoscopy 3. Diverting loop ileostomy (Dr. Davis 06/10/23) 57-year-old gentleman who presented with anemia in early May and was found to have adenocarcinoma, low-grade moderately differentiated, with liver metastases, loss of DNA mismatch repair enzymes MLH1 with secondary loss of PMS2 (B Tex testing pending) and extended RASS/Tex/ERBB2 panel pending, underwent diverting loop ileostomy to prevent impending obstruction today 06/10/[address] Davis. He also had a port placed. The hospital medicine team was asked by Gen Surg team to manage the patient's diabetes, insulin requiring with recent hyperkalemia, and BANG/CPAP. There have been no perioperative concerns - ostomy appears to be functioning. Gas and stool in bag. Tender but less so than yesterday. Blood sugars have been 259, 193, 267, 249, 246. I have increased his insulin from 40 units of regular t.i.d. to 50 units t.i.d. Sliding scale has been to 4 units per dose. Metformin is on hold. Trulicity can be given when do this weekend. He is tolerating his clear liquid diet. His potassium is normal this morning. His hemoglobin is 7.1. Vital signs are all stable. Objective: Seems a little flat this morning. Vitals: see above Lungs: Clear. Cardiac: S1S2. Abdomen: Obese, pink stoma in the right lower quadrant. Disposition/Potential discharge - Likely to return to previous living situation. Today I spent 50minutes seeing the patient, reviewing Expanse and EPIC notes/diagnostics, discussing the care plan with our care time that includes social work, PT/OT, pharmacy, RT, fci and documenting my impressions and plan in the medical record. Exam Const: Vital Signs, click to edit/add: Vital Signs - 24 hr 06/10/23 11:28 06/10/23 11:35 06/10/23 11:40 Temperature 98.3 F Pulse Rate 93 89 89 Pulse Rate [Pulse Oximeter] Respiratory Rate 17 16 16 Blood Pressure 120/64 117/59 L 124/68 Blood Pressure [Le ft Arm] Pulse Oximetry 96 100 100 Oxygen Delivery Me thod OxyMask OxyMask Room Air Oxygen Flow Rate 6 4 06/10/23 11:45 06/10/23 11:50 06/10/23 11:55 Temperature 97.8 F Pulse Rate 90 87 88 Pulse Rate [Pulse Oximeter] Respiratory Rate 18 18 17 Blood Pressure 122/64 125/69 131/70 Blood Pressure [Le ft Arm] Pulse Oximetry 96 98 95 Oxygen Delivery Me thod Room Air Room Air Room Air Oxygen Flow Rate 06/10/23 12:00 06/10/23 12:10 06/10/23 12:15 Temperature 98.0 F 98.1 F 97.6 F Pulse Rate 89 88 Pulse Rate [Pulse Oximeter] 92 Respiratory Rate 18 18 20 Blood Pressure 127/74 Blood Pressure [Le ft Arm] 124/69 124/69 Pulse Oximetry 95 93 90 Oxygen Delivery Me thod Room Air Room Air Oxygen Flow Rate 06/10/23 12:30 06/10/23 12:45 06/10/23 13:00 Temperature 97.6 F 97.6 F 97.6 F Pulse Rate Pulse Rate [Pulse Oximeter] 93 92 92 Respiratory Rate 18 20 20 Blood Pressure Blood Pressure [Le ft Arm] 142/81 H 108/48 L 106/54 L Pulse Oximetry 91 88 87 L Oxygen Delivery Me thod Room Air Room Air Room Air Oxygen Flow Rate 06/10/23 13:15 06/10/23 14:00 06/10/23 14:30 Temperature 97.6 F 97.7 F 97.7 F Pulse Rate Pulse Rate [Pulse Oximeter] 92 93 94 Respiratory Rate 20 20 20 Blood Pressure Blood Pressure [Le ft Arm] 144/80 H 150/71 H 142/78 H Pulse Oximetry 92 94 94 Oxygen Delivery Me thod Nasal Cannula Nasal Cannula Nasal Cannula Oxygen Flow Rate 1.5 1.5 1.5 06/10/23 16:30 06/10/23 16:31 06/10/23 17:30 Temperature 97.6 F 97.5 F L Pulse Rate Pulse Rate [Pulse Oximeter] 94 91 90 Respiratory Rate 20 20 20 Blood Pressure Blood Pressure [Le ft Arm] 132/85 106/48 L 112/75 Pulse Oximetry 9 L 96 92 Oxygen Delivery Me thod Room Air Nasal Cannula Room Air Oxygen Flow Rate 1 06/10/23 18:30 06/10/23 20:00 06/11/23 02:50 Temperature 98.6 F 97.8 F 98.1 F Pulse Rate Pulse Rate [Pulse Oximeter] 94 92 90 Respiratory Rate 20 20 20 Blood Pressure Blood Pressure [Le ft Arm] 122/66 123/63 121/51 L Pulse Oximetry 96 95 93 Oxygen Delivery Me thod Room Air Room Air Room Air Oxygen Flow Rate 06/11/23 11:09 Temperature 98.5 F Pulse Rate 94 Pulse Rate [Pulse Oximeter] Respiratory Rate 16 Blood Pressure 115/60 Blood Pressure [Le ft Arm] Pulse Oximetry 95 Oxygen Delivery Me thod Oxygen Flow Rate Labs Labs: Laboratory Results - last 24 hr 06/10/23 06/10/23 06/11/23 13:32 19:39 05:56 WBC 11.93 H RBC 3.73 L Hgb 7.1 L* Hct 26.0 L MCV 70 L MCH 19 L MCHC 27 L RDW Coeff of Jayshree 29.4 H Plt Count 380 Neut % (Auto) 75.0 H Lymph % (Auto) 13.4 L Kane % (Auto) 10.2 Eos % (Auto) 0.8 Baso % (Auto) 0.3 Neut # (Auto) 8.90 H Lymph # (Auto) 1.60 Kane # (Auto) 1.20 H Eos # (Auto) 0.10 Baso # (Auto) 0.00 Abs Immat Gran (auto) 0.00 Imm/Tot Granulo (auto) 0.3 Diff Slide Review Acceptable Review VBG pH 7.409 VBG pCO2 43 VBG pO2 60.2 H VBG HCO3 27 Sodium 135 133 L Potassium 4.6 4.2 Chloride 100 101 Carbon Dioxide 26 26 Anion Gap 9 6 L BUN 17 15 Creatinine 0.8 0.7 Estimated Creat Clear 116.52 133.17 Estimated GFR 104 108 Glucose 300 H 265 H Calcium 8.6 8.3 L Lab Acknowledgement New Spec Needed Blood Type Antibody Screen Crossmatch ([facility]) 06/11/23 06:33 WBC RBC Hgb Hct MCV MCH MCHC RDW Coeff of Jayshree Plt Count Neut % (Auto) Lymph % (Auto) Kane % (Auto) Eos % (Auto) Baso % (Auto) Neut # (Auto) Lymph # (Auto) Kane # (Auto) Eos # (Auto) Baso # (Auto) Abs Immat Gran (auto) Imm/Tot Granulo (auto) Diff Slide Review VBG pH VBG pCO2 VBG pO2 VBG HCO3 Sodium Potassium Chloride Carbon Dioxide Anion Gap BUN Creatinine Estimated Creat Clear Estimated GFR Glucose Calcium Lab Acknowledgement Blood Type AB Positive Antibody Screen NEGATIVE Crossmatch ([facility]) See Detail
--- NOTE | 2023-06-11 11:17 | PC.SOCIAL ---
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 Pt lives alone. Pt stated he felt good about going home by himself and the he has a sister and son that both live within four miles of his home and can help if he needs anything. Social work to follow-up as needed.
[2023-06-11] MEDS: SODIUM CHLORIDE 0.9 % (FLUSH) 10 ML SYRINGE IVF (11:18)
[2023-06-11] MEDS: HYDROmorphone 0.5 mg/0.5 ml inj IVP (11:18)
[2023-06-11] MEDS: ENOXAPARIN 40 MG/0.4 ML INJ SUBCUT (13:33)
--- NOTE | 2023-06-11 13:35 | PM.GSPN ---
Subjective Subjective Date Seen: 06/11/23 Interval history: Patient is doing well this morning. Has been tolerating clear liquids with no nausea. Is feeling hungry this morning. Has had gas and some liquid stool in bag. Abdominal pain is slightly worse this morning, but attributes that to being up and walking the halls. No other concerns. Exam Narrative: Exam Narrative: Gen: alert and oriented, non toxic Chest: Incisions c/d/i Abd: incisions with steri strips in place c/d/i. RLQ stoma beefy red, some liquid stool in bag and gas. Appropriate tenderness around stoma site, no guarding or rebound. Const: Vital Signs, click to edit/add: Vital Signs - 24 hr 06/10/23 14:00 06/10/23 14:30 06/10/23 16:30 Temperature 97.7 F 97.7 F Pulse Rate Pulse Rate [Pulse Oximeter] 93 94 94 Respiratory Rate 20 20 20 Blood Pressure Blood Pressure [Le ft Arm] 150/71 H 142/78 H 132/85 Pulse Oximetry 94 94 9 L Oxygen Delivery Me thod Nasal Cannula Nasal Cannula Room Air Oxygen Flow Rate 1.5 1.5 06/10/23 16:31 06/10/23 17:30 06/10/23 18:30 Temperature 97.6 F 97.5 F L 98.6 F Pulse Rate Pulse Rate [Pulse Oximeter] 91 90 94 Respiratory Rate 20 20 20 Blood Pressure Blood Pressure [Le ft Arm] 106/48 L 112/75 122/66 Pulse Oximetry 96 92 96 Oxygen Delivery Me thod Nasal Cannula Room Air Room Air Oxygen Flow Rate 1 06/10/23 20:00 06/11/23 02:50 06/11/23 11:09 Temperature 97.8 F 98.1 F 98.5 F Pulse Rate 94 Pulse Rate [Pulse Oximeter] 92 90 Respiratory Rate 20 20 16 Blood Pressure 115/60 Blood Pressure [Le ft Arm] 123/63 121/51 L Pulse Oximetry 95 93 95 Oxygen Delivery Me thod Room Air Room Air Oxygen Flow Rate 06/11/23 11:29 06/11/23 12:30 Temperature 98.3 F 98.4 F Pulse Rate 93 89 Pulse Rate [Pulse Oximeter] Respiratory Rate 16 16 Blood Pressure 114/60 114/62 Blood Pressure [Le ft Arm] Pulse Oximetry 96 93 Oxygen Delivery Me thod Oxygen Flow Rate Progress Note:A&P Assessment and plan (1) Status post ileostomy: Status: Acute Assessment and Plan: Patient POD1 loop ileostomy for adenocarcinoma of the colon and port a cath placement. Return of bowel function and tolerated clears. Afebrile VSS. No acute events overnight. Plan for ostomy education this afternoon. - ADAT - d/c IVF when adequate po intake - ostomy education - nutrition consulted - encourage ambulation - SCDs and lovenox for DVT ppx. Patient Caprini score calculated- given history of surgery, BMI and current malignancy is at high risk for VTE risk (4%). Will continue lovenox while inpatient, however not recommending prolonged use at this time with patient anemic (requiring current infusions) and higher bleeding risk. - hospitalist following for [employer]AND RE[employer]AM[employer]IST meds and diabetes management. Anticipate discharge over the weekend.
--- NOTE | 2023-06-11 18:02 | P.IMCN_ITS ---
Date of Consult Consult date: 06/11/23 Requesting Physician: General Surgery Primary Care Provider: Patrick Kirk MD Consult Narrative Reason for consult: s/p ileostomy Narrative: Des Parker is a 57 year old male s/p diverting loop ileostomy postop day 1. recent diagnosis adenocarcinoma of the colon with metastatic disease to his liver, intra-abdominal and within the mesentery. Colonoscopy revealed almost complete obstruction due to mass effect from the tumor in the transverse colon. Patient is working with Oncology in regards to chemotherapy recommendations. Patient is a type 2 diabetic, morbidly obese with BMI 42.6. He lives independently, alone. He drove himself to the hospital and is planning to drive himself home upon discharge. He has had gas and liquid stool noted in his ostomy pouch. He has been up walking in the ruiz. Tolerating PO intake. Abdominal pain improved from this morning. He states he has not watched any of the education videos, but he is hoping to get educated in anticipation of discharge. Due to patients enlarged abd he is unable to fully visualize his stoma. He does not have a full length [place]wey at home or handheld mirror to assist in visualization of his stoma. Review of Systems Status of ROS: Reports: 6 or more systems reviewed and unremarkable except as noted in History and below [facility] Medical History (Updated 06/11/23 @ 11:18 by Adilene Roberson MD) Ascending aorta dilation ?I77.810 - Thoracic aortic ectasia (ICD-10) Family history of brain cancer ?Z80.8 - Family history of malignant neoplasm of other organs or systems (ICD-10) Snoring ?R06.83 - Snoring (ICD-10) Excessive daytime sleepiness ?G47.19 - Other hypersomnia (ICD-10) Surgical History (Updated 06/10/23 @ 13:13 by Adilene Roberson MD) Port-A-Cath in place ?Z95.828 - Presence of other vascular implants and grafts (ICD-10) Status post ileostomy ?Z93.2 - Ileostomy status (ICD-10) History of tympanostomy tube placement ?Z96.22 - Myringotomy tube(s) status (ICD-10) S/P adenoidectomy ?Z90.89 - Acquired absence of other organs (ICD-10) Social History Narrative: He lives in [place]. 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 He does not smoke. He rarely drinks alcohol. Code status is DNR. His oldest child, Des campbell, is healthcare power of slice plug cutter operator What is your current living situation?: I presently have a place to live Problems where you live: other Problems where you live details: NA In the past 12 months, utilities in danger of being shut off: no In past 12 months, lack of transportation kept you from medical appts, meetings, work, or getting things needed for daily living: no In the past 12 mos, have been you worried that your food would run out before you had money to buy more?: never true In the past 12 mos, the food you bought just didn't last and you didn't have money to buy more?: never true Smoking Status: Never smoker Do you use any of these nicotine containing products: None Second hand tobacco smoke exposure: No How often do you have a drink containing alcohol: monthly or less How many standard drinks containing alcohol do you have on a typical day: 3 or 4 How often do you have six or more drinks on one occasion: Never AUDIT-C Alcohol total score: 2 Non-prescribed substance use: denies use Caffeine: Yes How often does anyone, including family, friends and others, physically hurt you : never How often does anyone, including family, friends and others, insult or talk down to you: never How often does anyone, including family, friends and others, threaten you with harm: never How often does anyone, including family, friends and others, scream or curse at you: never Meds Home Medications and Allergies Home Medications Medication Instructions Recorded Confirmed Type ezetimibe 10 mg tablet 10 mg PO DAILY 02/24/22 06/10/23 History levothyroxine 50 mcg tablet 50 mcg PO DAILY 02/24/22 06/10/23 History omega-3 fatty acids 1,000 mg 1,000 mg PO DAILY 02/24/22 06/10/23 History capsule dulaglutide 3 mg/0.5 mL 3 mg subcut QWEEK 03/19/22 06/10/23 History subcutaneous pen injector (Trulicity) metformin 500 mg tablet 1,000 mg PO BIDWM 06/02/23 06/10/23 History amlodipine 5 mg tablet 5 mg PO DAILY 06/10/23 06/10/23 History aspirin-acetaminophen 500 mg-325 1 packet PO Q6H PRN 06/10/23 06/10/23 History mg oral packet (Goody's Back and Body Pain) atorvastatin 40 mg tablet 40 mg PO DAILY 06/10/23 06/10/23 History insulin regular hum U-500 conc 500 85 unit subcut 3XD 06/10/23 06/10/23 History unit/mL(3 mL) subcut pen (Humulin R U-500 (Conc) Insulin Kwikpen) lisinopril 10 mg tablet 10 mg PO DAILY 06/10/23 06/10/23 History ondansetron HCl 4 mg tablet 4 mg PO Q8H PRN nausea and vomiting 06/10/23 06/10/23 History Allergies Allergy/AdvReac Type Severity Reaction Status Date / Time No Known Drug Allergies Allergy Verified 06/10/23 06:22 Exam Narrative: Exam Narrative: Gen: alert and oriented. Sitting in recliner and was able to ambulate independently and position self in bed. Pulmonary: unlabored, symmetrical rise. Speaking in full sentences. Abd: incisions with steri strips in place c/d/i. RLQ oval stoma beefy red with mild congestion, opening level with skin, near 7-8 o'clock. Alia-stomal skin with patterned contact dermatis. Appropriate tenderness around stoma site, no guarding or rebound. Stoma measured [id number]. Psych: Makes good eye contact. Normal Affect. Const: Vital Signs, click to edit/add: Vital Signs - 24 hr 06/10/23 18:30 06/10/23 20:00 06/11/23 02:50 Temperature 98.6 F 97.8 F 98.1 F Pulse Rate Pulse Rate [Pulse Oximeter] 94 92 90 Respiratory Rate 20 20 20 Blood Pressure Blood Pressure [Le ft Arm] 122/66 123/63 121/51 L Pulse Oximetry 96 95 93 Oxygen Delivery Me thod Room Air Room Air Room Air Oxygen Flow Rate 06/11/23 07:00 06/11/23 07:00 06/11/23 11:00 Temperature 98.2 F 98.4 F Pulse Rate Pulse Rate [Pulse Oximeter] 90 94 94 Respiratory Rate 16 16 16 Blood Pressure Blood Pressure [Le ft Arm] 123/68 123/68 Pulse Oximetry 94 94 Oxygen Delivery Me thod Room Air Room Air Oxygen Flow Rate 4 4 06/11/23 11:09 06/11/23 11:29 06/11/23 12:30 Temperature 98.5 F 98.3 F 98.4 F Pulse Rate 94 93 89 Pulse Rate [Pulse Oximeter] Respiratory Rate 16 16 16 Blood Pressure 115/60 114/60 114/62 Blood Pressure [Le ft Arm] Pulse Oximetry 95 96 93 Oxygen Delivery Me thod Oxygen Flow Rate 06/11/23 13:30 06/11/23 14:45 06/11/23 15:00 Temperature 98.2 F 98.4 F 98.6 F Pulse Rate 78 78 Pulse Rate [Pulse Oximeter] 94 Respiratory Rate 16 16 16 Blood Pressure 114/83 110/61 Blood Pressure [Le ft Arm] 116/81 Pulse Oximetry 94 94 94 Oxygen Delivery Me thod Room Air Oxygen Flow Rate 4 06/11/23 15:00 Temperature Pulse Rate Pulse Rate [Pulse Oximeter] 94 Respiratory Rate 16 Blood Pressure Blood Pressure [Le ft Arm] Pulse Oximetry Oxygen Delivery Me thod Oxygen Flow Rate Documenting provider has reviewed patient's vital signs: yes Labs Labs: Short CBC 06/11/23 Range/Units 05:56 WBC 11.93 H (4.50-11.00) K/uL Hgb 7.1 L* (13.5-17.5) gm/dL Hct 26.0 L (37.0-53.0) % Plt Count 380 (140-440) K/uL BMP 06/11/23 05:56 Sodium 133 L Potassium 4.2 Chloride 101 Carbon Dioxide 26 BUN 15 Creatinine 0.7 Glucose 265 H Calcium 8.3 L Assessment and Plan Assessment and plan (1) Status post ileostomy: Problem comment: 06/10/23 - Dr. Davis. no complications. clears 06/10 until ostomy is draining LMWH starting 06/11 hold metformin and provide insulin to cover BS Status: Acute (2) Type 2 diabetes mellitus: Problem comment: A1C 6.8 06/04/21 hold metformin until eating regular diet. cover with regular insulin (scheduled and sliding scale support) continue home Trulity dosing Status: Acute (3) Obesity: Status: Acute (4) Adenocarcinoma of colon: Problem comment: Dx 05/2023 - presented with hb of 3.8 Dr. Mcnair consulting oncology Dr. Davis gen surgery low-grade moderately differentiated, with liver metastases, loss of DNA mismatch repair enzymes MLH1 with secondary loss of PMS2 (B Tex testing pending) and extended RASS/Tex/ERBB2 panel pending Status: Acute Plan Ostomy appliance changed by this life insurance underwriter, with concurrent explanation and demonstration for patient. Nursing present during ostomy change. Initial ostomy education completed. Patient provided with a ostomy and stoma model practice kit. He is encouraged to practice measuring and cutting ostomy barrier tonight. He was assigned 5 ostomy education videos to complete prior to discharge. Nursing to get patient set up with secure start from [employer]. Five ostomy pouch samples supplied to patient to take home. These are the ceraplus remosis from [employer] as they work with sensitive skin to combat his contact dermatitis d/t standard ostomy barrier adhesive. alia-stomal skin is not level yet d/t expected post-op edema. Please utilize o stomy ring under barrier to improve appliance seal and prevent leaks. patient encouraged to ask family to pickup a full length mirror and/or handheld mirror to assist in his ostomy pouch changes. Goal will be for patient to assist in completion of next ostomy change. Advised and educated on measuring output, please have patient start doing this with nursing supervision. Patient to f/u in [facility]omy [facility] 06/25/23 @2pm with Liberty Nazario.
[2023-06-12] VITALS (7 sets, daily range): BP systolic 100–129; BP diastolic 61–65; PULSE 86–98; RESP 16–24; TEMP 36.8–37.2; O2SAT 93–96
--- NOTE | 2023-06-12 04:20 | PC.NURSE ---
Shift note: Pt continue to improve as he tolerate clear liquid diet well. Alert and oriented. Ostomy continue to drain greenish brown colored gastric content. Incision sites clean and dry. Pt only asked for 1x pain medication for pain level of 7. Vitally stable.
[2023-06-12] MEDS: LEVOTHYROXINE 50 MCG TABLET PO (06:37)
[2023-06-12 08:23] LABS: HCO3 VBG 27 mmol/L (21-28); Ionized Calcium* 1.09 mmol/L (1.11-1.30); PCO2 VBG 38 mmHG (40-50); PO2 VBG 66.9 mmHG (25-47); pH VBG 7.455 (7.32-7.43)
[2023-06-12 08:27] LABS: Mean Corpuscular HGB Conc 28 gm/dL (32-36); Mean Corpuscular Hemoglobin 20 pg (26-34); Mean Corpuscular Volume 71 fL (80-100); Platelet Count* 563 K/uL (140-440); Red Blood Count 3.93 m/uL (4.30-5.90); White Blood Count* 9.86 K/uL (4.50-11.00)
[2023-06-12 08:28] LABS: Hemoglobin* 7.7 gm/dL (13.5-17.5); Slide Review Reflex No
[2023-06-12] MEDS: ATORVASTATIN CALCIUM 40 MG TABLET PO (08:38)
[2023-06-12] MEDS: EZETIMIBE 10 MG TABLET PO (08:38)
[2023-06-12] MEDS: AMLODIPINE 5 MG TABLET PO (08:38)
[2023-06-12 08:39] LABS: Albumin* 3.3 g/dL (3.3-5.0)
[2023-06-12 08:40] LABS: Chloride* 101 mmol/L (96-114); Sodium* 134 mmol/L (135-149)
[2023-06-12] MEDS: lisinopriL 10 MG TABLET PO (08:40)
[2023-06-12] MEDS: FUROSEMIDE 40 MG TABLET PO (08:40)
[2023-06-12 08:42] LABS: Anion Gap 7 mEq/L (7-15); Aspartate Amino Transferase* 20 U/L (12-35); Bilirubin Total* 0.7 mg/dL (0.1-1.5); Carbon Dioxide* 26 mmol/L (20-32); Creatinine* 0.6 mg/dL (0.5-1.5); Est. Creatinine Clearance* 155.36; Estimated Glomerular Filt Rate 113 ml/min; Total Protein* 6.5 g/dL (6.0-8.3)
[2023-06-12 08:43] LABS: Alanine Aminotransferase* 14 U/L (4-50); Alkaline Phosphatase* 98 U/L (40-150); Blood Urea Nitrogen* 11 mg/dL (7-30); Calcium* 8.3 mg/dL (8.4-10.6); Glucose* 306 mg/dL (60-115); Magnesium* 2.1 mg/dL (1.5-2.6)
--- NOTE | 2023-06-12 11:07 | PM.GSPN ---
Subjective Subjective Date Seen: 06/12/23 Interval history: Patient is doing okay this morning. He still has some fatigue and abdominal pain, although he feels like it is improving. He has been working on getting used to his stoma and cares that he is going to need to do at home. He has not yet changed his appliance. He has been tolerating a regular diet without any nausea or vomiting. Gas and stool present within the ostomy bag. Exam Narrative: Exam Narrative: General: Alert and oriented, no acute distress Abdomen: Obese abdomen, lap sites clean/dry/intact with Steri-Strips in place. Right lower quadrant loop ileostomy stoma pink with ostomy bag in place Chest: Dressings removed from port a catheter incisions. Glue over poor incisions clean/dry/intact with no concern for infection. Const: Vital Signs, click to edit/add: Vital Signs - 24 hr 06/11/23 11:09 06/11/23 11:29 06/11/23 12:30 Temperature 98.5 F 98.3 F 98.4 F Pulse Rate 94 93 89 Pulse Rate [Pulse Oximeter] Respiratory Rate 16 16 16 Blood Pressure 115/60 114/60 114/62 Blood Pressure [Le ft Arm] Pulse Oximetry 95 96 93 Oxygen Delivery Me thod Oxygen Flow Rate 06/11/23 13:30 06/11/23 14:45 06/11/23 15:00 Temperature 98.2 F 98.4 F 98.6 F Pulse Rate 78 78 Pulse Rate [Pulse Oximeter] 94 Respiratory Rate 16 16 16 Blood Pressure 114/83 110/61 Blood Pressure [Le ft Arm] 116/81 Pulse Oximetry 94 94 94 Oxygen Delivery Me thod Room Air Oxygen Flow Rate 4 06/11/23 15:00 06/11/23 19:00 06/11/23 23:00 Temperature 98.3 F Pulse Rate Pulse Rate [Pulse Oximeter] 94 88 94 Respiratory Rate 16 16 16 Blood Pressure Blood Pressure [Le ft Arm] 138/65 Pulse Oximetry 94 Oxygen Delivery Me thod Room Air Oxygen Flow Rate 06/11/23 23:00 06/12/23 03:00 06/12/23 07:00 Temperature 98.3 F 98.9 F 98.2 F Pulse Rate Pulse Rate [Pulse Oximeter] 94 86 98 Respiratory Rate 16 16 20 Blood Pressure Blood Pressure [Le ft Arm] 132/68 100/61 127/65 Pulse Oximetry 94 95 93 Oxygen Delivery Me thod Room Air Room Air Room Air Oxygen Flow Rate 06/12/23 08:21 Temperature Pulse Rate Pulse Rate [Pulse Oximeter] 98 Respiratory Rate 20 Blood Pressure Blood Pressure [Le ft Arm] Pulse Oximetry Oxygen Delivery Me thod Oxygen Flow Rate Labs/Imaging Labs Labs: Hemoglobin 7.7, no concern for any ongoing bleeding Progress Note:A&P Assessment and plan (1) Status post ileostomy: Status: Acute Assessment and Plan: Patient POD2 loop ileostomy for adenocarcinoma of the colon and port a cath placement. Patient is tolerating a low-fiber diet. Stoma mucosa pink and viable in appearance with gas and stool in ostomy bag. - continue low-fiber diet - d/c IVF - ostomy education - nutrition consulted - encourage ambulation - SCDs and lovenox for DVT ppx. Patient Caprini score calculated- given history of surgery, BMI and current malignancy is at high risk for VTE risk (4%). Will continue lovenox while inpatient, however not recommending prolonged use at this time with patient anemic (requiring current infusions) and higher bleeding risk. - hospitalist following for [employer] MA[employer] ASSISTANT meds and diabetes management. Anticipate discharge tomorrow morning.
[2023-06-12] MEDS: ENOXAPARIN 40 MG/0.4 ML INJ SUBCUT (11:08)
--- NOTE | 2023-06-12 13:17 | P.IMPN_ITS ---
Progress Note: A&P Assessment and plan (1) Status post ileostomy: Problem details: 06/10/23 - Dr. Davis. no complications. advancing diet LMWH starting 06/11 hold metformin and provide insulin to cover BS Status: Acute (2) Type 2 diabetes mellitus: Problem details: A1C 6.8 06/04/21 hold metformin until eating regular diet. cover with regular insulin (scheduled and sliding scale support) continue home Trulity dosing Status: Acute (3) Adenocarcinoma of colon: Problem details: Dx 05/2023 - presented with hb of 3.8 Dr. Mcnair consulting oncology Dr. Davis gen surgery low-grade moderately differentiated, with liver metastases, loss of DNA mismatch repair enzymes MLH1 with secondary loss of PMS2 (B Tex testing pending) and extended RASS/Tex/ERBB2 panel pending Status: Acute (4) Symptomatic anemia: Problem details: 7.6 post op 06/10 track daily s/p 6 units packed cells with dx in early 06/12 7.1 on the morning of 06/11. 1 unit of packed cells ordered. 7.7 am of 06/12 Status: Acute (5) Hypertension: Problem details: continue amlodipine, lisinopril, lasix, Status: Chronic (6) BANG on CPAP: Problem details: home unit Status: Chronic (7) Obesity: Status: Acute Subjective Date Seen: 06/12/23 Interval history: Daily Progress Note - Hospital Medicine Hospital Day # 3 Post Op Day # 2 1. Ultrasound-guided port a catheter placement 2. Diagnostic laparoscopy 3. Diverting loop ileostomy (Dr. Davis 06/10/23) 57-year-old gentleman who presented with anemia in early May and was found to have adenocarcinoma, low-grade moderately differentiated, with liver metastases, loss of DNA mismatch repair enzymes MLH1 with secondary loss of PMS2 (B Tex testing pending) and extended RASS/Tex/ERBB2 panel pending, underwent diverting loop ileostomy to prevent impending obstruction 06/10/[address] Davis. He also had a port placed. The hospital medicine team was asked by Gen Surg team to manage the patient's diabetes, insulin requiring with recent hyperkalemia, and BANG/CPAP. There have been no perioperative concerns - ostomy appears to be functioning. Gas and stool in bag. Tender but less so than yesterday. Blood sugars have been 116,175, 133. I have increased his insulin from 40 units of regular t.i.d. to 50 units t.i.d. Sliding scale has been to 4 units per dose. Metformin is on hold. Trulicity can be given when due this weekend. He is tolerating a regular diet. His potassium is normal this morning. His hemoglobin is 7.7. Vital signs are all stable. Objective: walking in the halls Vitals: see above Lungs: Clear. Cardiac: S1S2. Abdomen: Obese, pink stoma in the right lower quadrant. Disposition/Potential discharge - Likely to return to previous living situation. Today I spent 50minutes seeing the patient, reviewing Expanse and EPIC notes/diagnostics, discussing the care plan with our care time that includes social work, PT/OT, pharmacy, RT, intermediate and documenting my impressions and plan in the medical record. Exam Const: Vital Signs, click to edit/add: Vital Signs - 24 hr 06/11/23 13:30 06/11/23 14:45 06/11/23 15:00 Temperature 98.2 F 98.4 F 98.6 F Pulse Rate 78 78 Pulse Rate [Pulse Oximeter] 94 Respiratory Rate 16 16 16 Blood Pressure 114/83 110/61 Blood Pressure [Le ft Arm] 116/81 Pulse Oximetry 94 94 94 Oxygen Delivery Me thod Room Air Oxygen Flow Rate 4 06/11/23 15:00 06/11/23 19:00 06/11/23 23:00 Temperature 98.3 F Pulse Rate Pulse Rate [Pulse Oximeter] 94 88 94 Respiratory Rate 16 16 16 Blood Pressure Blood Pressure [Le ft Arm] 138/65 Pulse Oximetry 94 Oxygen Delivery Me thod Room Air Oxygen Flow Rate 06/11/23 23:00 06/12/23 03:00 06/12/23 07:00 Temperature 98.3 F 98.9 F 98.2 F Pulse Rate Pulse Rate [Pulse Oximeter] 94 86 98 Respiratory Rate 16 16 20 Blood Pressure Blood Pressure [Le ft Arm] 132/68 100/61 127/65 Pulse Oximetry 94 95 93 Oxygen Delivery Me thod Room Air Room Air Room Air Oxygen Flow Rate 06/12/23 08:21 06/12/23 11:34 Temperature 98.2 F Pulse Rate Pulse Rate [Pulse Oximeter] 98 88 Respiratory Rate 20 22 Blood Pressure Blood Pressure [Le ft Arm] 118/63 Pulse Oximetry 94 Oxygen Delivery Me thod Room Air Oxygen Flow Rate Labs Labs: Laboratory Results - last 24 hr 06/11/23 06/12/23 06:33 08:02 WBC 9.86 RBC 3.93 L Hgb 7.7 L* Hct 28.0 L MCV 71 L MCH 20 L MCHC 28 L Plt Count 563 H VBG pH 7.455 H VBG pCO2 38 L VBG pO2 66.9 H VBG HCO3 27 Sodium 134 L Potassium 4.0 Chloride 101 Carbon Dioxide 26 Anion Gap 7 BUN 11 Creatinine 0.6 Estimated Creat Clear 155.36 Estimated GFR 113 Glucose 306 H Calcium 8.3 L Ionized Calcium Rae 1.09 L Magnesium 2.1 Total Bilirubin 0.7 AST 20 ALT 14 Alkaline Phosphatase 98 Total Protein 6.5 Albumin 3.3 Crossmatch (AHG) See Detail
--- NOTE | 2023-06-12 18:33 | PC.NURSE ---
End of Shift: Patient pleasant and cooperative. Patient vitally stable, lungs clear, BS WNL, IV SL. Patient rates discomfort 1-2/10, no pain meds given. Patient independent. Ostomy intact and draining loose/mucus-green/brown stool. Abdominal lap sites x3 and port incision C/D/I. Patient ambulating the halls. Patient tolerating regular diet and urinating. Patient blood sugars 175, 133, and 115. Patient did report feeling as if his BS was low, BS checked and was 76, juice given.
[2023-06-13 03:00] VITALS: BP 118/56; PULSE 84; RESP 18; TEMP 37.1; O2SAT 92
[2023-06-13] MEDS: LEVOTHYROXINE 50 MCG TABLET PO (06:03)
--- NOTE | 2023-06-13 06:50 | PC.NURSE ---
End of shift [id number]: Pt A&O, VSS and afebrile overnight. He is independent in his room and frequently walks the halls. Pt denies having any pain, nausea or dyspnea. RLQ ostomy C/D/I and producing liquid, seedy, green/brown stool. Total ostomy output: 500 mL. Stoma is beefy red and oval in shape, skin breakdown & excoriations present. Pt used his home CPAP overnight. PIV in right hand SL and C/D/I. Lap sites x3 on mid abdomen & LLQ C/D/I with steri-strips intact. Right chest wall x2 incisions from port placement are BUSINESS LAW PROFESSOR and secured with dermabond C/D/I. HS blood sugar: 94; pt denied having symptoms but creative services writer provided him with an OJ. Regular insulin held per MD order. Pt plans to discharge home when medically stable. ?
[2023-06-13 07:00] VITALS: PULSE 86; RESP 18
[2023-06-13 08:18] VITALS: BP 131/75; PULSE 86; RESP 18; TEMP 36.9; O2SAT 96
[2023-06-13] MEDS: FUROSEMIDE 40 MG TABLET PO (09:07)
[2023-06-13] MEDS: ATORVASTATIN CALCIUM 40 MG TABLET PO (09:07)
[2023-06-13] MEDS: lisinopriL 10 MG TABLET PO (09:08)
[2023-06-13] MEDS: AMLODIPINE 5 MG TABLET PO (09:08)
[2023-06-13] MEDS: EZETIMIBE 10 MG TABLET PO (09:08)
[2023-06-13 12:00] VITALS: BP 137/70; PULSE 94; RESP 18; TEMP 37.3; O2SAT 96
[2023-06-13] MEDS: ENOXAPARIN 40 MG/0.4 ML INJ SUBCUT (12:11)
--- NOTE | 2023-06-13 12:53 | P.DS_ITS ---
DS: Providers Provider Date Seen: 06/13/23 Date of admission: 06/10/23 06:16 Primary care physician: Patrick Kirk MD Admitting Clinician: Ursula Davis MD Consults: 06/10/23 12:16 Consult to Nutrition [CONS] Routine Comment: Reason for consult:: Nutritional Consult Consult to Physician [CONS] Routine Comment: Consulting Provider: Carloz Bah Has provider been notified: Yes Consult to Wound Care [CONS] Routine Comment: Consulting Provider: Liberty Nazario Attending Physician on discharge: Ursula Davis MD DS: Summary Hospital Course Hospital Course: Patient was admitted to the hospital after undergoing a right internal jugular port a catheter placement and diverting loop ileostomy. The procedures were performed due to new diagnosis of adenocarcinoma of the colon. Patient tolerated both procedures well. On postop day 2 evidence of return of bowel function at the ostomy site with stoma healthy in appearance. Patient tolerated advancement to a low-fiber, diabetic diet. The hospitalist service followed the patient while inpatient to help assist with comorbidities and diabetes management. At the time of discharge the patient was ambulating without difficulty, pain was well controlled, voiding independently and felt comfortable taking care of his ostomy at home. He was discharged with several supplies and a plan for follow- up in the ostomy clinic the following week. He will see myself in surgery clinic in 2-3 weeks. He is also scheduled for [facility]. Time Spent with Patient Time attestation: Total time spent providing and/or coordinating discharge services: Exam Narrative: Exam Narrative: General: Alert and oriented, nontoxic appearing Respiratory: Clear breath sounds, maintained on room air CV: Well perfused Abdomen: Soft, nontender nondistended. Incisions on the left side clean/dry/intact. Right lower quadrant ostomy in place with evidence of gas and stool in bag. Stoma is pink in appearance. Does have some evidence of skin irritation just around the ostomy appliance, no concern for infection. Const: Vital Signs, click to edit/add: Vital Signs - 24 hr 06/12/23 15:30 06/12/23 15:30 06/12/23 19:00 Temperature 98.2 F 98.3 F Pulse Rate [Pulse Oximeter] 86 86 89 Respiratory Rate 24 24 20 Blood Pressure [Le ft Arm] 121/61 129/64 Blood Pressure [Ri ght Arm] Pulse Oximetry 95 96 Oxygen Delivery Me thod Room Air Room Air 06/12/23 23:00 06/12/23 23:00 06/13/23 03:00 Temperature 98.8 F Pulse Rate [Pulse Oximeter] 84 Respiratory Rate 20 20 18 Blood Pressure [Le ft Arm] Blood Pressure [Ri ght Arm] 118/56 L Pulse Oximetry 92 Oxygen Delivery Me thod CPAP Room Air 06/13/23 07:00 06/13/23 08:18 06/13/23 12:00 Temperature 98.5 F 99.1 F Pulse Rate [Pulse Oximeter] 86 86 94 Respiratory Rate 18 18 18 Blood Pressure [Le ft Arm] 131/75 137/70 Blood Pressure [Ri ght Arm] Pulse Oximetry 96 96 Oxygen Delivery Me thod Room Air Room Air DS: Data Data Completed and Pending Completed studies during hospitalization: Procedures Excision of Duodenum, Via Natural or Artificial Opening Endoscopic, Diagnostic (05/23/23) Excision of Stomach, Via Natural or Artificial Opening Endoscopic, Diagnostic (05/23/23) Excision of Transverse Colon, Via Natural or Artificial Opening Endoscopic, Diagnostic (05/23/23) Transfusion of Nonautologous Red Blood Cells into Peripheral Vein, Percutaneous Approach (05/23/23) Discharge Plan Discharge Disposition: Home, Self-Care Date of Admission: 06/10/23 06:16 Attending Provider on Discharge: Ursula Davis Consulting Providers: Carloz Bah; Liberty Nazario; Adilene Roberson Primary Care Provider: Patrick Kirk Condition: Improved Anticipated Discharge Date/Time: 06/13/23 12:00 Discharge Medications: New hydrocodone-acetaminophen 5-325 mg tablet 1 tab PO Q6H PRN (Reason: pain) Qty: 15 0RF Continued furosemide 40 mg tablet 40 mg PO QAM Qty: 90 1RF prochlorperazine maleate [Compazine] 5 mg tablet 5 mg PO BID PRN (Reason: nausea and vomiting) Qty: 60 0RF ezetimibe 10 mg tablet 10 mg PO DAILY levothyroxine 50 mcg tablet 50 mcg PO DAILY omega-3 fatty acids 1,000 mg capsule 1,000 mg PO DAILY metformin 500 mg tablet 1,000 mg PO BIDWM Trulicity 3 mg/0.5 mL pen injector 3 mg subcut QWEEK Rx Instructions: Wednesday atorvastatin 40 mg tablet 40 mg PO DAILY amlodipine 5 mg tablet 5 mg PO DAILY Humulin R U-500 (Conc) Kwikpen 500 unit/mL (3 mL) insulin pen 85 unit subcut 3XD ondansetron HCl 4 mg tablet 4 mg PO Q8H PRN (Reason: nausea and vomiting) Goody's Back and Body Pain 500-325 mg packet 1 packet PO Q6H PRN lisinopril 10 mg tablet 10 mg PO DAILY Discharge Orders: Discharge Order (Routine); Ordered 06/13/23 Ordered By: Ursula Davis Patient Education: Hydrocodone/Acetaminophen (By mouth), Implanted Venous Access Port (DC), Deep Sedation (DC), Post-Operative Instructions: Port-A-Cath Placement Additional Instructions: You were prescribed a narcotic pain medication. In addition you may supplement with Tylenol and/or ibuprofen. Be sure to not exceed greater than 4 g of Tylenol in a 24 hour period. Follow-up with Dr. Davis in 2-3 weeks. Please call if you are experiencing severe pain, nausea, vomiting, difficulty urinating, fever or not had a bowel movement in 4 days after surgery. Average output for your ileostomy ranges from 500 to 1300 mL a day. This daily fluid loss places you at greater risk for dehydration. Increase your daily fluid intake and make sure to stay hydrated. Preferred fluids include water, broth, vegetable juice and the use of Pediatric electrolyte solutions. If you are having >1500cc of fluid a day you may take Imodium one tablet twice daily. Activity Level: No strenuous activity Activity Detail: Activity as tolerated. Avoid strenuous activity. No lifting greater than 20 lb for 6 weeks. Discharge Diet: Diabetic and Low Fiber Diet Detail: Continue on a low-fiber diabetic diet for the next 2 weeks. Avoid gas producing foods. Make sure to stay hydrated. Follow Up Appointments: Ursula Davis MD [Staff Physician] - 07/01/23 1:00 pm ([facility] for follow-up.) Patrick Kirk MD [Primary Care Provider] - Liberty Nazario CNP [Nurse Practitioner] - (Patient is to follow in Ostomy Clinic 06/25/23 @ 2pm, with Liberty Nazario CNP) Forms: [facility], [facility] Info Instructions
--- NOTE | 2023-06-13 14:36 | PC.NURSE ---
Discharge: Patient pleasant and cooperative. Patient Vitally stable, lungs clear, BS WNL, IV removed, catheter intact. Patient reports some discomfort in abdomen, declined pain medication. Patient independent in room. Patient urinating and ostomy intact and draining soft/Loose brown stool, stoma beefy red. Patient tolerating regular diet. Whole ostomy bag changed today and education given, patient took part in changing bag. Extra supplies were given to patient for home. Abdominal lap sites x3 and port incision C/D/I. Patient signed belongings sheet and discharge forms. Patient had no further questions regarding discharge. Patient left the floor at 1426 by foot to home.
== END 2023-06-13 14:26 | disposition home or self-care (01) | DRG 330 ==
PROVIDERS: Family Medicine; Admitting Provider Surgery; PCP Family Medicine; Visit Provider Surgery
PROC: 0DBB4ZZ Excision of Ileum, Percutaneous Endoscopic Approach (ICD-10-PCS; CPT 44205; principal; 2023-06-10 07:30)
PROC: 0D1B0Z4 Bypass Ileum to Cutaneous, Open Approach (ICD-10-PCS; 2023-06-10 07:30)
DX: C18.4 Malignant neoplasm of transverse colon (principal); C78.6 Secondary malignant neoplasm of retroperitoneum and peritoneum; C78.7 Secondary malignant neoplasm of liver and intrahepatic bile duct; Z68.41 Body mass index [BMI] 40.0-44.9, adult; Z45.2 Encounter for adjustment and management of vascular access device; E87.5 Hyperkalemia; D50.0 Iron deficiency anemia secondary to blood loss (chronic); E11.65 Type 2 diabetes mellitus with hyperglycemia; Z79.84 Long term (current) use of oral hypoglycemic drugs; Z79.4 Long term (current) use of insulin; G47.33 Obstructive sleep apnea (adult) (pediatric); I10 Essential (primary) hypertension; E66.01 Morbid (severe) obesity due to excess calories; I77.810 Thoracic aortic ectasia; Z80.8 Family history of malignant neoplasm of other organs or systems
CPT/HCPCS: 00790; 36415; 36430; 71045; 76998; 80048; 80053; 82330; 82803; 82962; 83735; 85025; 85027; 86850; 86900; 86901; 86922; A9270; C1788; J0330; J0665; J1100; J1170; J1335; J1642; J1650; J1885; J2001; J2250; J2371; J2405; J2704; J3010; J3475; J7030; J7120; P9016

== ENCOUNTER 2023-07-01 10:48 | Outpatient (CLI) | payer OTHER, SELFPAY ==
--- NOTE | 2023-07-01 11:00 | PE_ITS ---
[facility] [address] [facility] [address] Phone:?[phone] Fax:?[phone] Referring Physician Information: Ursula Davis M.D. [address] [facility] [address] Phone:?[phone] Fax:?[phone] Patient:?Des Parker D.O.B:?1965 Sex:?Male Phone:?[phone] [facility] MRN:?[id number] Exam Date:?07/01/2023 EXAM:?PET/CT EYES TO THIGHS, CANCER INITIAL STAGING CLINICAL INFORMATION: Colon cancer TECHNICAL INFORMATION: Helical acquisition of data was obtained from the orbits to the upper thighs with reconstruction of 3.75 mm thick images at 3.[address] data was used for attenuation correction. PET scanning was performed through the same anatomic range 60 minutes following administration of 11.51 mCi of 18-FDG delivered intravenously. The patient's glucose at the time of the injection was 180 mg/dL. PET, CT and PET/CT fusion images are interpreted using a computer viewing workstation. PET, CT and PET/CT fusion images were archived and saved in the patient's permanent medical record. COMPARISON: None INTERPRETATION: Head and Neck: Nodular foci of abnormal FDG avidity in the region of the occipital lobe with an SUV max of 8.29. No definite CT correlate. There is physiologic uptake in the intracranial soft tissues. Chest: There are no abnormal hypermetabolic foci within the chest. No lung nodules or masses detected on this free-breathing exam. No lymphadenopathy detected. Calcified granulomas are present in the left upper lobe and right lower lobe. Right chest wall shayy catheter. Abdomen and Pelvis: Average background liver parenchymal uptake SUV of 2.81. Redemonstrated 7.8 x 6.6 cm hypoattenuating mass in the left hepatic lobe with predominantly peripheral FDG avidity with an SUV max of 26.42. Thickening of the transverse colon measuring approximately 8.5 x 4.8 cm with associated FDG avidity and SUV max of 33.95. Adjacent soft tissue mass superiorly to the transverse colon which may reflect a conglomerate april mass measuring 5.3 x 5.2 cm (series 202 image 171) with peripheral FDG avidity and an SUV max of 31.89. Prominent central mesenteric lymph node measures 3.5 x 3.2 cm (series 202 image 176) with an SUV max of 13.91. Additional smaller central mesenteric lymph nodes are present. A few enlarged retroperitoneal lymph nodes which are mildly FDG avid. For instance, a left para-aortic lymph node measures 1.3 cm in short access (series 202 image 190) with an SUV max of 18.71. There is physiologic excretion of radiotracer in the urine and bowel. Right lower quadrant ostomy. Skeleton, Musculature, and Integument: No abnormal hypermetabolic foci within the skeleton. No parth osteoblastic or osteolytic disease. CONCLUSION: * Soft tissue thickening of the transverse colon with associated FDG avidity compatible with patient's known primary neoplasm. * An FDG avid conglomerate april mass adjacent to the primary neoplasm. * Additional FDG avid central mesenteric and retroperitoneal lymph nodes concerning for metastasis. * An FDG avid mass in the left hepatic lobe compatible with metastasis. * Abnormal nodular FDG uptake in the region of the occipital lobe, without definite CT correlate but concerning for possible metastasis. Recommend further evaluation with MRI of the brain without and with contrast. Electronically signed on 07/05/2023 8:49:00 AM by Giancarlo Rodriguez D.O
== END 2023-07-01 10:49 | disposition home or self-care (01) ==
LOC: RAD 10:48
PROVIDERS: PCP Family Medicine; Visit Provider Surgery
DX: C18.9 Malignant neoplasm of colon, unspecified (principal)
CPT/HCPCS: 78815; A9552

== ENCOUNTER 2023-08-06 13:42 | Outpatient (CLI) | payer OTHER, SELFPAY | END 2023-08-06 13:43 | disposition home or self-care (01) | PROVIDERS: PCP Family Medicine; Visit Provider Nurse Practitioner Family | DX: Z93.2 Ileostomy status (principal); D64.9 Anemia, unspecified | CPT/HCPCS: 80048; 82607; 82728; 82746; 83540; 83550 ==

== ENCOUNTER 2023-08-09 10:49 | Emergency (ER) | payer OTHER, SELFPAY ==
[2023-08-09] VITALS (22 sets, daily range): BP systolic 100–138; BP diastolic 68–86; PULSE 96–114; RESP 14–30; TEMP 37; O2SAT 84–95; BMI 40.9
--- NOTE | 2023-08-09 11:23 | ED_ITS ---
HPI - SOB/Dyspnea General Time Seen by Provider: 11:23 Date Seen: 08/09/23 Chief Complaint: Shortness of Breath/Dyspnea Stated Complaint: trouble breathing Time Seen by Provider: 08/09/23 11:22 Source: patient and RN notes reviewed Mode of arrival: ambulatory Limitations: no limitations History of Present Illness HPI Narrative: This 57-year-old male is coming in for concern of increasing shortness of breath over the last few days. He denies any fevers, is not been coughing, no chest pain. He has not been ill with anything. He states his legs have not been swo llen but I did state that his legs looked like they had edema or swelling to me. He states they had put him on a diuretic but had not really helped. He really has had no chest pain, has not felt ill other than the shortness of breath. He has not had any prior blood clots before. Patient is undergoing treatment for colon cancer. His surgery for his cancer was 06/12/2023. MD elicited complaint: shortness of breath Related Data Home oxygen amount: none Home Medications Medication Instructions Recorded Confirmed ezetimibe 10 mg tablet 10 mg PO DAILY 02/24/22 08/06/23 levothyroxine 50 mcg tablet 50 mcg PO DAILY 02/24/22 08/06/23 omega-3 fatty acids 1,000 mg 1,000 mg PO DAILY 02/24/22 08/06/23 capsule dulaglutide 3 mg/0.5 mL 3 mg subcut QWEEK 03/19/22 08/06/23 subcutaneous pen injector (Trulicity) metformin 500 mg tablet 1,000 mg PO BIDWM 06/02/23 08/06/23 aspirin-acetaminophen 500 mg-325 1 packet PO Q6H PRN 06/10/23 08/06/23 mg oral packet (Goody's Back and Body Pain) atorvastatin 40 mg tablet 40 mg PO DAILY 06/10/23 08/06/23 insulin regular hum U-500 conc 500 85 unit subcut 3XD 06/10/23 08/06/23 unit/mL(3 mL) subcut pen (Humulin R U-500 (Conc) Insulin Kwikpen) lisinopril 10 mg tablet 10 mg PO DAILY 06/10/23 08/06/23 ondansetron HCl 4 mg tablet 4 mg PO Q8H PRN nausea and vomiting 06/10/23 08/06/23 Previous Rx's Medication Instructions Recorded furosemide 40 mg tablet 40 mg PO QAM #90 tabs 02/22/23 prochlorperazine maleate 5 mg 5 mg PO BID PRN nausea and 06/02/23 tablet (Compazine) vomiting #60 tabs sodium chloride 1,000 mg soluble 1,000 mg PO QDAY PRN electrolyte 07/07/23 tablet replenishment #10 tabs Allergies Allergy/AdvReac Type Severity Reaction Status Date / Time No Known Drug Allergies Allergy Verified 08/09/23 12:24 Review of Systems Status of ROS: Reports: 6 or more systems reviewed and unremarkable except as noted in History and below [facility] Medical History (Updated 08/09/23 @ 15:42 by Riya Waite, FIDEL) Ascending aorta dilation ?I77.810 - Thoracic aortic ectasia (ICD-10) Family history of brain cancer ?Z80.8 - Family history of malignant neoplasm of other organs or systems (ICD-10) Snoring ?R06.83 - Snoring (ICD-10) Excessive daytime sleepiness ?G47.19 - Other hypersomnia (ICD-10) Surgical History Port-A-Cath in place ?Z95.828 - Presence of other vascular implants and grafts (ICD-10) Status post ileostomy ?Z93.2 - Ileostomy status (ICD-10) History of tympanostomy tube placement ?Z96.22 - Myringotomy tube(s) status (ICD-10) S/P adenoidectomy ?Z90.89 - Acquired absence of other organs (ICD-10) Social History Narrative: He lives in [place]. 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 He does not smoke. He rarely drinks alcohol. Code status is DNR. His oldest child, Des campbell, is healthcare power of divorce attorney What is your current living situation?: I presently have a place to live Problems where you live: other Problems where you live details: NA In the past 12 months, utilities in danger of being shut off: no In past 12 months, lack of transportation kept you from medical appts, meetings, work, or getting things needed for daily living: no In the past 12 mos, have been you worried that your food would run out before you had money to buy more?: never true In the past 12 mos, the food you bought just didn't last and you didn't have money to buy more?: never true Smoking Status: Former smoker Do you use any of these nicotine containing products: None Second hand tobacco smoke exposure: No How often do you have a drink containing alcohol: monthly or less How many standard drinks containing alcohol do you have on a typical day: 3 or 4 How often do you have six or more drinks on one occasion: Never AUDIT-C Alcohol total score: 2 Non-prescribed substance use: denies use Caffeine: Yes How often does anyone, including family, friends and others, physically hurt you : never How often does anyone, including family, friends and others, insult or talk down to you: never How often does anyone, including family, friends and others, threaten you with harm: never How often does anyone, including family, friends and others, scream or curse at you: never Exam Const: Vital Signs, click to edit/add: Vital Signs - 24 hr 08/09/23 11:06 08/09/23 11:26 08/09/23 11:32 Temperature 98.6 F Pulse Rate 105 H Pulse Rate [Right Pulse Oximeter] 114 H Respiratory Rate 30 H 22 Blood Pressure 117/69 Blood Pressure [Ri ght Upper Arm] 138/68 Pulse Oximetry 84 L 90 90 Oxygen Delivery Me thod Room Air Nasal Cannula Oxygen Flow Rate 4 08/09/23 12:01 08/09/23 12:31 08/09/23 13:02 Temperature Pulse Rate 105 H 102 H 101 H Pulse Rate [Right Pulse Oximeter] Respiratory Rate 24 20 22 Blood Pressure 120/71 111/81 116/78 Blood Pressure [Ri ght Upper Arm] Pulse Oximetry 91 90 91 Oxygen Delivery Me thod Oxygen Flow Rate 08/09/23 13:18 08/09/23 13:31 08/09/23 14:02 Temperature Pulse Rate 99 102 H Pulse Rate [Right Pulse Oximeter] Respiratory Rate 20 22 Blood Pressure 120/80 134/84 Blood Pressure [Ri ght Upper Arm] Pulse Oximetry 90 92 92 Oxygen Delivery Me thod Nasal Cannula Nasal Cannula Oxygen Flow Rate 4 5 08/09/23 14:32 08/09/23 15:02 08/09/23 15:31 Temperature Pulse Rate 98 101 H 98 Pulse Rate [Right Pulse Oximeter] Respiratory Rate 18 18 20 Blood Pressure 110/76 114/78 111/77 Blood Pressure [Ri ght Upper Arm] Pulse Oximetry 92 91 90 Oxygen Delivery Me thod Oxygen Flow Rate 08/09/23 16:01 08/09/23 16:32 08/09/23 17:02 Temperature Pulse Rate 99 98 98 Pulse Rate [Right Pulse Oximeter] Respiratory Rate 18 14 16 Blood Pressure 124/83 127/79 122/79 Blood Pressure [Ri ght Upper Arm] Pulse Oximetry 92 92 90 Oxygen Delivery Me thod Nasal Cannula Oxygen Flow Rate 5 08/09/23 17:31 08/09/23 18:02 08/09/23 18:14 Temperature Pulse Rate 97 96 100 Pulse Rate [Right Pulse Oximeter] Respiratory Rate 14 16 18 Blood Pressure 116/68 100/86 116/76 Blood Pressure [Ri ght Upper Arm] Pulse Oximetry 90 88 93 Oxygen Delivery Me thod Oxygen Flow Rate 08/09/23 18:32 08/09/23 19:01 08/09/23 19:02 Temperature Pulse Rate 99 96 97 Pulse Rate [Right Pulse Oximeter] Respiratory Rate 14 16 Blood Pressure 122/75 116/75 Blood Pressure [Ri ght Upper Arm] Pulse Oximetry 93 95 93 Oxygen Delivery Me thod Oxygen Flow Rate 08/09/23 20:00 Temperature Pulse Rate 100 Pulse Rate [Right Pulse Oximeter] Respiratory Rate 20 Blood Pressure 127/80 Blood Pressure [Ri ght Upper Arm] Pulse Oximetry 94 Oxygen Delivery Me thod Oxygen Flow Rate This 57-year-old male is alert, interactive, looks like he does not feel well. Is speaking in phrases rather than complete sentences. Face atraumatic, sclera clear. Neck is thick but do not appreciate jugular venous distension, no masses. He rolls to his side for me to listen to his lungs, lungs are actually clear, good air entry, no wheezing or crackles. CV slightly fast, distant heart sounds, no murmur. Abdomen is obese but nontender, do feel is colostomy site. He has bilateral thickening of his lower extremities. No calf tenderness. Patient does have significant obesity. Documenting provider has reviewed patient's vital signs: yes Course Course ED Course: This is a hypoxic patient without any pain, no evidence of any infectious sym ptoms. Pulmonary embolus is at the top of my list. Have ordered a stat CT PE protocol. Will get labs, and will include blood cultures in case this is an atypical presentation of something infectious. Need to consider cardiac ischemia, infarct. Certainly any me a needs to be looked at in his labs. Will get a full complement of labs. He is on supplemental oxygen with some improvement to 90%, will be on cardiac monitoring and pulse oximetry. Reevaluation(s) Time of Reevaluation #1: 12:54 Reevaluation #1: Reviewed with patient that he has bilateral blood clots in his lungs. Discussed with him that there is evidence of right heart strain, would like to talk to a specialist on him. He does need blood thinners, do wonder if they would just have me heparin eyes or potentially consider tPA him. We will try to talk to the pulmonary embolus team stat at [facility]. He is in agreement with that. I have asked staff to call [facility]. He is that 4 L nasal cannula oxygen, anywhere from 88-90%. Time of Reevaluation #2: 13:55 Reevaluation #2: Reviewed with patient the PEs, right heart strain, residual right DVT. He is on heparin, reviewed recommendations to transfer given his hypoxia. He understands he will need to go by ambulance. Consultations Consultation #1: Have spoken with the director design Dr. Loco. I will call him back once I have my a venous ultrasound reports from his lower extremities. Will initiate heparin protocol for DVT/PE at this time. Depending on clot burden of his lower extremities, may require thrombolytics. 13:50pm have spoken with Dr. Loco again, patient does have residual DVT in the right lower extremity. Plan is to continue heparin, watch for worsening hypoxia or tachycardia. I will need to speak to the hospitalist from [facility], have confirmed that our hospitalist supports transfer given the hypoxia. Time: 13:02 Consultation #2: Spoke with hospitalist from [facility] Dr. Ayers. He accepts. Time: 14:01 Vital Signs Vital signs: Initial Vital Signs Temperature 98.6 F 08/09/23 11:06 Temperature Source Temporal Artery Scan 08/09/23 11:06 Pulse Rate 114 H 08/09/23 11:06 Respiratory Rate 30 H 08/09/23 11:06 Blood Pressure 138/68 08/09/23 11:06 Blood Pressure Mean 91 08/09/23 11:06 Blood Pressure Position Sitting 08/09/23 11:06 Pulse Oximetry 84 L 08/09/23 11:06 Oxygen Delivery Method Room Air 08/09/23 11:06 Vital Signs Temperature 98.6 F 08/09/23 11:06 Pulse Rate 114 H 08/09/23 11:06 Respiratory Rate 30 H 08/09/23 11:06 Blood Pressure 138/68 08/09/23 11:06 Pulse Oximetry 84 L 08/09/23 11:06 Oxygen Delivery Method Room Air 08/09/23 11:06 Temperature 98.6 F 08/09/23 11:06 Pulse Rate 100 08/09/23 20:00 Respiratory Rate 20 08/09/23 20:00 Blood Pressure 127/80 08/09/23 20:00 Pulse Oximetry 94 08/09/23 20:00 Oxygen Delivery Method Nasal Cannula 08/09/23 16:01 Oxygen Flow Rate 5 08/09/23 16:01 Medications Administered Medications: Discontinued Medications Generic Name Dose Route Start Last Admin Trade Name Freq PRN Reason Stop Dose Admin Heparin Sodium (Porcine) 10,000 unit 08/09/23 13:08 08/09/23 13:43 Heparin 5,000 Unit/0.5 Ml Inj IVP 08/09/23 13:09 10,000 unit ONCE ONE Administration Heparin Sodium/Dextrose 25,000 unit in 500 mls @ 0 mls/hr 08/09/23 13:15 08/09/23 13:48 Heparin IV 1,500 unit/hr .Q0M NANNETTE 30 mls/hr Administration Protocol Per Protocol MDM - SOB/Dyspnea Lab Data Attestation: I reviewed the patient's lab results. Labs: Lab Results 08/09/23 Range/Units 11:25 WBC 10.69 (4.50-11.00) K/uL RBC 5.26 (4.30-5.90) m/uL Hgb 10.0 L (13.5-17.5) gm/dL Hct 35.9 L (37.0-53.0) % MCV 68 L (80-100) fL MCH 19 L (26-34) pg MCHC 28 L (32-36) gm/dL RDW Coeff of Jayshree 21.2 H (11.5-15.5) % Plt Count 256 (140-440) K/uL Neut % (Auto) 77.1 H (42.0-72.0) % Lymph % (Auto) 13.1 L (20-44) % Sioux % (Auto) 8.3 (0.0-11.0) % Eos % (Auto) 0.4 (0.0-7.0) % Baso % (Auto) 0.4 (0.0-3.0) % Neut # (Auto) 8.20 H (1.7-7.0) K/uL Lymph # (Auto) 1.40 (0.90-2.90) K/uL Sioux # (Auto) 0.90 (0.00-0.90) K/UL Eos # (Auto) 0.04 (0.00-0.50) K/uL Baso # (Auto) 0.04 (0.00-0.30) K/uL Abs Immat Gran (auto) 0.07 (0.00-0.30) K/uL Imm/Tot Granulo (auto) 0.7 % INR 1.11 H (0.91-1.10) APTT 29 (23-33) Seconds D-Dimer Quant (PE/DVT) 3.50 H (0.00-0.50) ug/ml VBG pH 7.388 (7.32-7.43) VBG pCO2 41 (40-50) mmHG VBG pO2 47.6 H (25-47) mmHG VBG HCO3 24 (21-28) mmol/L Sodium 132 L (135-149) mmol/L Potassium 4.3 (3.6-5.1) mmol/L Chloride 102 (96-114) mmol/L Carbon Dioxide 23 (20-32) mmol/L Anion Gap 7 (7-15) mEq/L BUN 14 (7-30) mg/dL Creatinine 0.6 (0.5-1.5) mg/dL Estimated Creat Clear 155.36 Estimated GFR 113 ml/min Glucose 346 H (60-115) mg/dL Lactate 3.0 H (0.5-1.9) mmol/L Calcium 8.5 (8.4-10.6) mg/dL Magnesium 1.8 (1.5-2.6) mg/dL Total Bilirubin 0.8 (0.1-1.5) mg/dL AST 19 (12-35) U/L ALT 17 (4-50) U/L Alkaline Phosphatase 115 (40-150) U/L Troponin I 0.06 H* (0.01-0.04) ng/mL C-Reactive Protein 3.1 H (0.5-1.0) mg/dL NT-Pro-B Natriuret Pep 4090 pg/mL Total Protein 7.6 (6.0-8.3) g/dL Albumin 3.8 (3.3-5.0) g/dL Procalcitonin 0.11 (<0.50) ng/mL SARS-CoV-2 (PCR) Negative SARS-CoV-2 (Negative) Influenza Type A (PCR) Negative PCR FLU A (Negative) Influenza Type B (PCR) Negative PCR FLU B (Negative) RSV (PCR) Negative PCR RSV (Negative) Imaging Data CT scan - chest: Attestation: I have reviewed the pertinent imaging results. Radiologist's impression: Patient: DES KENDRICK Facility:?[facility] Patient ID:?[id number] Site Patient ID:?[id number]. Site :?1965 Study:?CT-Chest PE 95CC ISOVUE 370-08/09/2023 12:20:19 PM Ordering Physician:JULIENNE Final Report: Indication: HYPOXIA, SOB, ELEVATED TROPONIN Technique: CT angiogram of the chest was performed for evaluation of pulmonary embolism. 95 mL of Isovue 370 intravenous contrast was administered. Comparison: 05/25/2023 Findings: CARDIOVASCULAR: Diagnostic quality: Contrast opacification of the pulmonary arterial circulation is adequate for assessment of pulmonary embolism. Study is not significantly limited by respiratory motion artifact. Pulmonary arteries: Bilateral pulmonary emboli are seen extending from the distal main pulmonary arteries into the segmental and subsegmental arteries bilaterally. Enlarged, measuring 3.6 centimeter in diameter (). Heart: Enlargement of the right relative to the left ventricles. Normal in size. Mild coronary artery calcification. No significant valvular calcification. Pericardium: No pericardial effusion. Thoracic aorta: No significant abnormality. Two-vessel arch. REMAINING CHEST: Medical devices: Right internal jugular approach chest port with catheter tip at the superior cavoatrial junction. Thyroid: Normal. Lymph nodes: No supraclavicular, axillary, mediastinal, or hilar lymphadenopathy. Other mediastinal structures: No significant abnormality. Lung parenchyma: Redemonstration of bilateral pulmonary nodules; for example: 2.0 x 1.7 centimeter right lower lobe (5/107), previously measuring 2.0 x 1.7 centimeter. 2.0 x 1.4 centimeter lingular (5/71), previously measuring 2.1 x 1.4 centimeter. Interval development of 1.3 centimeter left upper lobe nodular consolidation (5/42). Airways: No significant abnormality. Pleura: No significant abnormality. Chest wall: Mild bilateral gynecomastia. Upper abdomen: Cholelithiasis. Partial visualization of 4.5 x 4.2 centimeter mesenteric mass (4/213), previously seen on CT 05/25/2023 and better characterized on MRI 05/25/2023. Musculoskeletal: Mild to moderate multilevel degenerative changes of the visualized spine. Impression: 1. Bilateral pulmonary emboli extending from the distal main pulmonary arteries into the segmental arteries bilaterally. Evidence of right heart strain including enlargement of the right relative to the left ventricles. 2. Enlarged main pulmonary artery, which may be seen in the setting of pulmonary hypertension. 3. Redemonstration of bilateral pulmonary nodules, which are concerning for metastatic disease. 4. Interval development of 1.3 centimeter left upper lobe nodular consolidation; this may represent a pulmonary infarct versus new site of metastatic disease. 5. Partial visualization of 4.5 x 4.2 centimeter mesenteric mass, previously seen on CT 05/25/2023 and better characterized on MRI 05/25/2023. Findings discussed with Dr. May at 12:50 p.m. on 08/09/2023. Please note that all CT scans at this facility use dose modulation, iterative reconstruction, and/or weight-based dosing when appropriate to reduce radiation dose to as low as reasonably achievable. Dictated by Gary Moncada MD @ 08/09/2023 12:52:15 PM (Electronic Signature) Chest x-ray: Attestation: I have reviewed the pertinent imaging results. Radiologist's impression: Patient: DES KENDRICK Facility:[facility] Patient ID:?[id number] Site Patient ID:?[id number]. Site :?1965 Study:?XRay-Chest 1V-08/09/2023 12:23:23 PM Ordering Physician:JULIENNE Final Report: Indication: Hypoxia, shortness of breath and elevated troponin Technique: Chest 1 view Comparison: Chest x-ray 02/22/[address] 05/25/2023 Findings/Impression: Cardiovascular and mediastinum: Borderline cardiomegaly with right-sided Port-A-Cath with tip at the cavoatrial junction. Mild aortic tortuosity. Lungs and pleural space: No pleural effusion or pneumothorax. Vague nodule at the right lung base, similar to the prior CT. Left lung nodule is not well- defined on this single-view chest. Bones and soft tissues: No acute findings. Dictated by Emanuel Eller MD @ 08/09/2023 12:47:00 PM (Electronic Signature) Venous US: Attestation: I have reviewed the pertinent imaging results. Radiologist's impression: Patient: DES KENDRICK Facility:?[facility] Patient ID:?[id number] Site Patient ID:?[id number]. Site :?1965 Study:?US-Extremity Bilateral LEV-08/09/2023 1:43:06 PM Ordering Physician:ELIZABET LIU Final Report: INDICATION: Leg pain and swelling. TECHNIQUE: Ultrasound venous duplex bilateral lower extremity. Compression venous exam was performed using foster-scale, color Doppler, and spectral Doppler analysis. COMPARISON: None. FINDINGS: Deep veins: Sonographic imaging demonstrates the bilateral common femoral, deep femoral, superficial femoral, Left popliteal, and Left posterior tibial veins to be fully compressible with normal color Doppler blood flow. The right popliteal, posterior tibial and peroneal veins demonstrate partial compressibility and partial color doppler flow, consistent with non-occlusive thrombus. Superficial veins: Greater saphenous veins are fully compressible. No popliteal cyst. IMPRESSION: Non-occlusive thrombus in the right popliteal, peroneal and posterior tibial veins. Findings discussed with Dr. Liu at 1:54 pm on August 09, [address] Maravilla. Dictated by Mason Maravilla MD @ 08/09/2023 1:54:27 PM (Electronic Signature) ECG Data Attestation: I personally reviewed and interpreted this ECG as follows: (Sinus tachycardia, 105 beats per minute. Flipped T-waves through V1 through V5 with out definite ST segment change. QT corrected 483 milliseconds.) ECG interpretation date: 08/09/23 ECG interpretation time: 12:39 Prior ECG tracings: available for review (The T-wave changes in the anterior precordial leads are new compared to his EKG from 06/04/2023.) Discharge Plan Discharge Clinical Impression: Bilateral pulmonary embolism Right leg DVT Qualifiers: Affected thrombotic vein of extremity: unspecified vein of extremity Chronicity: acute Qualified Code(s): I82.401 - Acute embolism and thrombosis of unspecified deep veins of right lower extremity Patient Disposition: Melva Toure Prescriptions: No Action furosemide 40 mg tablet 40 mg PO QAM Qty: 90 1RF prochlorperazine maleate [Compazine] 5 mg tablet 5 mg PO BID PRN (Reason: nausea and vomiting) Qty: 60 0RF sodium chloride 1,000 mg tablet,soluble 1,000 mg PO QDAY PRN (Reason: electrolyte replenishment) Qty: 10 0RF ezetimibe 10 mg tablet 10 mg PO DAILY levothyroxine 50 mcg tablet 50 mcg PO DAILY omega-3 fatty acids 1,000 mg capsule 1,000 mg PO DAILY metformin 500 mg tablet 1,000 mg PO BIDWM Trulicity 3 mg/0.5 mL pen injector 3 mg subcut QWEEK Rx Instructions: Wednesday atorvastatin 40 mg tablet 40 mg PO DAILY Humulin R U-500 (Conc) Kwikpen 500 unit/mL (3 mL) insulin pen 85 unit subcut 3XD ondansetron HCl 4 mg tablet 4 mg PO Q8H PRN (Reason: nausea and vomiting) Goody's Back and Body Pain 500-325 mg packet 1 packet PO Q6H PRN lisinopril 10 mg tablet 10 mg PO DAILY Stand Alone Forms: My[employer] Info Instructions
--- NOTE | 2023-08-09 11:26 | XR_ITS ---
Patient: AIDAN KENDRICK Facility:?[facility] Patient ID:?[id number] Site Patient ID:?[id number]. Site :?1965 Study:?XRay-Chest 1V-08/09/2023 12:23:23 PM Ordering Physician:JULIENNE Final Report: Indication: Hypoxia, shortness of breath and elevated troponin Technique: Chest 1 view Comparison: Chest x-ray 02/22/[address] 05/25/2023 Findings/Impression: Cardiovascular and mediastinum: Borderline cardiomegaly with right-sided Port-A-Cath with tip at the cavoatrial junction. Mild aortic tortuosity. Lungs and pleural space: No pleural effusion or pneumothorax. Vague nodule at the right lung base, similar to the prior CT. Left lung nodule is not well- defined on this single-view chest. Bones and soft tissues: No acute findings. Dictated by Emanuel Eller MD @ 08/09/2023 12:47:00 PM Signed by:?Emanuel Eller MD @08/09/2023 12:47:00 PM (Electronic Signature)
--- NOTE | 2023-08-09 11:36 | CT_ITS ---
Patient: AIDAN KENDRICK Facility:?[facility] Patient ID:?[id number] Site Patient ID:?[id number]. Site :?1965 Study:?CT-Chest PE 95CC ISOVUE 370-08/09/2023 12:20:19 PM Ordering Physician:JULIENNE Final Report: Indication: HYPOXIA, SOB, ELEVATED TROPONIN Technique: CT angiogram of the chest was performed for evaluation of pulmonary embolism. 95 mL of Isovue 370 intravenous contrast was administered. Comparison: 05/25/2023 Findings: CARDIOVASCULAR: Diagnostic quality: Contrast opacification of the pulmonary arterial circulation is adequate for assessment of pulmonary embolism. Study is not significantly limited by respiratory motion artifact. Pulmonary arteries: Bilateral pulmonary emboli are seen extending from the distal main pulmonary arteries into the segmental and subsegmental arteries bilaterally. Enlarged, measuring 3.6 centimeter in diameter (4/74). Heart: Enlargement of the right relative to the left ventricles. Normal in size. Mild coronary artery calcification. No significant valvular calcification. Pericardium: No pericardial effusion. Thoracic aorta: No significant abnormality. Two-vessel arch. REMAINING CHEST: Medical devices: Right internal jugular approach chest port with catheter tip at the superior cavoatrial junction. Thyroid: Normal. Lymph nodes: No supraclavicular, axillary, mediastinal, or hilar lymphadenopathy. Other mediastinal structures: No significant abnormality. Lung parenchyma: Redemonstration of bilateral pulmonary nodules; for example: 2.0 x 1.7 centimeter right lower lobe (5/107), previously measuring 2.0 x 1.7 centimeter. 2.0 x 1.4 centimeter lingular (5/71), previously measuring 2.1 x 1.4 centimeter. Interval development of 1.3 centimeter left upper lobe nodular consolidation (5/42). Airways: No significant abnormality. Pleura: No significant abnormality. Chest wall: Mild bilateral gynecomastia. Upper abdomen: Cholelithiasis. Partial visualization of 4.5 x 4.2 centimeter mesenteric mass (4/213), previously seen on CT 05/25/2023 and better characterized on MRI 05/25/2023. Musculoskeletal: Mild to moderate multilevel degenerative changes of the visualized spine. Impression: 1. Bilateral pulmonary emboli extending from the distal main pulmonary arteries into the segmental arteries bilaterally. Evidence of right heart strain including enlargement of the right relative to the left ventricles. 2. Enlarged main pulmonary artery, which may be seen in the setting of pulmonary hypertension. 3. Redemonstration of bilateral pulmonary nodules, which are concerning for metastatic disease. 4. Interval development of 1.3 centimeter left upper lobe nodular consolidation; this may represent a pulmonary infarct versus new site of metastatic disease. 5. Partial visualization of 4.5 x 4.2 centimeter mesenteric mass, previously seen on CT 05/25/2023 and better characterized on MRI 05/25/2023. Findings discussed with Dr. May at 12:50 p.m. on 08/09/2023. Please note that all CT scans at this facility use dose modulation, iterative reconstruction, and/or weight-based dosing when appropriate to reduce radiation dose to as low as reasonably achievable. Dictated by Gary Moncada MD @ 08/09/2023 12:52:15 PM Signed by:?Gary Moncada MD @08/09/2023 12:52:15 PM (Electronic Signature)
[2023-08-09 12:07] LABS: Basophils Absolute Auto 0.04 K/uL (0.00-0.30); Basophils Percent Auto 0.4 % (0.0-3.0); Eosinophils Absolute Auto 0.04 K/uL (0.00-0.50); Eosinophils Percent Auto 0.4 % (0.0-7.0); Hematocrit 35.9 % (37.0-53.0); Immature Granulocytes Abs Auto 0.07 K/uL (0.00-0.30); Immature Granulocytes Pct Auto 0.7 %; Lymphocytes Percent Auto 13.1 % (20-44); Mean Corpuscular HGB Conc 28 gm/dL (32-36); Mean Corpuscular Hemoglobin 19 pg (26-34); Mean Corpuscular Volume 68 fL (80-100); Monocytes Percent Auto 8.3 % (0.0-11.0); Neutrophils Percent Auto 77.1 % (42.0-72.0); Platelet Count* 256 K/uL (140-440); RDW Coefficient of Variation % 21.2 % (11.5-15.5); Red Blood Count 5.26 m/uL (4.30-5.90); White Blood Count* 10.69 K/uL (4.50-11.00)
[2023-08-09 12:08] LABS: HCO3 VBG 24 mmol/L (21-28); PCO2 VBG 41 mmHG (40-50); PO2 VBG 47.6 mmHG (25-47); Slide Review Reflex No; pH VBG 7.388 (7.32-7.43)
[2023-08-09 12:24] LABS: Albumin* 3.8 g/dL (3.3-5.0); Chloride* 102 mmol/L (96-114); Sodium* 132 mmol/L (135-149)
[2023-08-09 12:25] LABS: Potassium* 4.3 mmol/L (3.6-5.1)
[2023-08-09 12:27] LABS: Bilirubin Total* 0.8 mg/dL (0.1-1.5); Creatinine* 0.6 mg/dL (0.5-1.5); Est. Creatinine Clearance* 155.36; Estimated Glomerular Filt Rate 113 ml/min
[2023-08-09 12:28] LABS: Alanine Aminotransferase* 17 U/L (4-50); Alkaline Phosphatase* 115 U/L (40-150); Anion Gap 7 mEq/L (7-15); Aspartate Amino Transferase* 19 U/L (12-35); Blood Urea Nitrogen* 14 mg/dL (7-30); Calcium* 8.5 mg/dL (8.4-10.6); Carbon Dioxide* 23 mmol/L (20-32); Glucose* 346 mg/dL (60-115); Magnesium* 1.8 mg/dL (1.5-2.6); Total Protein* 7.6 g/dL (6.0-8.3)
[2023-08-09 12:31] LABS: C Reactive Protein* 3.1 mg/dL (0.5-1.0)
[2023-08-09 12:44] LABS: Procalcitonin* 0.11 ng/mL (<0.50)
[2023-08-09 12:45] LABS: NT Pro B Type NatriureticPept* 4090 pg/mL; Troponin I* 0.06 ng/mL (0.01-0.04)
[2023-08-09 12:55] LABS: PCR FLU A Negative PCR FLU A (Negative); PCR FLU B Negative PCR FLU B (Negative); PCR RSV Negative PCR RSV (Negative); SARS PCR* Negative SARS-CoV-2 (Negative)
--- NOTE | 2023-08-09 13:03 | US_ITS ---
Patient: AIDAN KENDRICK Facility:?[facility] Patient ID:?[id number] Site Patient ID:?[id number]. Site :?1965 Study:?US-Extremity Bilateral LEV-08/09/2023 1:43:06 PM Ordering Physician:ELIZABET LIU Final Report: INDICATION: Leg pain and swelling. TECHNIQUE: Ultrasound venous duplex bilateral lower extremity. Compression venous exam was performed using foster-scale, color Doppler, and spectral Doppler analysis. COMPARISON: None. FINDINGS: Deep veins: Sonographic imaging demonstrates the bilateral common femoral, deep femoral, superficial femoral, Left popliteal, and Left posterior tibial veins to be fully compressible with normal color Doppler blood flow. The right popliteal, posterior tibial and peroneal veins demonstrate partial compressibility and partial color doppler flow, consistent with non-occlusive thrombus. Superficial veins: Greater saphenous veins are fully compressible. No popliteal cyst. IMPRESSION: Non-occlusive thrombus in the right popliteal, peroneal and posterior tibial veins. Findings discussed with Dr. Liu at 1:54 pm on August 09, [address] Maravilla. Dictated by Mason Maravilla MD @ 08/09/2023 1:54:27 PM Signed by:?Mason Maravilla MD @08/09/2023 1:54:27 PM (Electronic Signature)
[2023-08-09] MEDS: HEPARIN 5,000 UNIT/0.5 ML INJ 10000 UNIT IVP (13:43)
[2023-08-09] MEDS: HEPARIN 25,000 UNIT/500 ML BAG 30 UNIT IV (13:48)
[2023-08-09 14:12] LABS: INR 1.11 (0.91-1.10)
[2023-08-09 14:13] LABS: Partial Thromboplastin Time* 29 Seconds (23-33)
== END 2023-08-09 20:23 | disposition short-term general hospital (02) ==
LOC: ED 12:01
PROVIDERS: Emergency Provider Family Medicine; PCP Family Medicine
DX: I26.99 Other pulmonary embolism without acute cor pulmonale (principal); I82.401 Acute embolism and thrombosis of unspecified deep veins of right lower extremity
CPT/HCPCS: 36415; 71045; 71275; 80053; 82803; 83605; 83735; 83880; 84145; 84484; 85025; 85379; 85610; 85730; 86140; 87040; 87631; 93005; 93970; 94761; 96374; 99284; 99285; 99291; A0425; A0427; J1644; Q9967

== ENCOUNTER 2023-08-09 20:07 | Outpatient (CLI) | payer OTHER, SELFPAY | END 2023-08-09 20:08 | disposition home or self-care (01) | LOC: AMB 08-16 18:12 | PROVIDERS: PCP Family Medicine; Visit Provider Family Medicine | DX: R06.09 Other forms of dyspnea (principal) | CPT/HCPCS: A0425; A0427 ==

== ENCOUNTER 2023-08-26 13:28 | Outpatient (CLI) | payer OTHER, SELFPAY ==
--- NOTE | 2023-08-26 14:30 | PE_ITS ---
[facility] [address] [facility] [address] Phone:?[phone] Fax:?[phone] Referring Physician Information: Elizabeth Mcnair M.D. [address] [facility] [address] Phone:?[phone] Fax:?[phone] Patient:Megan Parker D.O.B:?1965 Sex:?Male Phone:?[phone] [facility] MRN:?[id number] Exam Date:?08/26/2023 EXAM: PET/CT EYES TO THIGHS, CANCER RESTAGING CLINICAL INFORMATION: Colorectal cancer, restaging. TECHNICAL INFORMATION: Helical acquisition of data was obtained from the orbits to the upper thighs with reconstruction of 3.75 mm thick images at 3.[address] data was used for attenuation correction. PET scanning was performed through the same anatomic range 60 minutes following administration of 14.47 mCi of 18-FDG delivered intravenously. The patient's glucose at the time of the injection was 135 mg/dL. PET, CT and PET/CT fusion images are interpreted using a computer viewing workstation. PET, CT and PET/CT fusion images were archived and saved in the patient's permanent medical record. COMPARISON: PET-CT from 07/01/2023. INTERPRETATION: Head and Neck: When compared to the PET-CT from June 2023, there is a new hypermetabolic lesion in the left-posterior soft tissues of the neck (Se 2 Im 46), measuring roughly 1.5 x 1.0 cm with a maximum SUV of 16.04. Subcentimeter right parotid lesion (Se 2 Im 37) has a maximum SUV of 4.7. There are no other abnormal hypermetabolic foci within the head or neck. There is physiologic uptake in the intracranial soft tissues. Chest: There are no abnormal hypermetabolic foci within the chest. Background mediastinal blood pool uptake has a maximum SUV of 2.71. No suspicious lung nodules or masses detected on this free-breathing exam. Benign calcified granulomata redemonstrated. No lymphadenopathy detected. Abdomen and Pelvis: Known malignant stricture of the transverse colon (Se 2 Im 179) measures roughly 4 x 2 cm with maximum SUV of 9.49, previously 9 x 5 cm with maximum SUV of 33.95. Adjacent april conglomerate (Se 2 Im 171) measures 5 x 5 cm with maximum SUV of 2.93, previously 5 x 5 cm with maximum SUV of 31.89. Right lower quadrant stoma redemonstrated. Central mesenteric node (Se 2 Im 181) measures 4 x 2 cm with a maximum SUV of 4.11, previously 4 x 3 cm with maximum SUV of 13.91. Known metastasis in the left hepatic lobe (Se 2 Im 160) measures roughly 6 x 4 cm with a maximum SUV of 7.18, previously 9 x 6 cm with maximum SUV of 31.89. Background hepatic parenchymal uptake has a maximum SUV of 3.94. There is physiologic excretion of radiotracer in the urine and bowel. Cholelithiasis noted incidentally. Skeleton, Musculature, and Integument: No abnormal hypermetabolic foci within the skeleton. No parth osteoblastic or osteolytic disease. CONCLUSION: 1. Findings consistent with partial response to interval therapy. The primary malignant stricture in the transverse colon has decreased in terms of size/conspicuity and metabolic rate. Similarly, the previously indexed april conglomerates and hepatic metastasis are less hypermetabolic than before, with variable decrease in size. 2. No definite new, enlarging, or increasingly avid lesions to indicate clear progression. A few indeterminate observations follow. 3. There is a new lesion in the left-posterior soft tissues of the neck, with marked hypermetabolism. Etiology is indeterminate, with both benign (e.g., furuncle) and malignant (subcutaneous metastasis) possibilities. Recommend dedicated ultrasound for further evaluation and for possible biopsy/drainage planning. 4. Mildly hypermetabolic right parotid lesion is most likely unrelated to the patient's colorectal cancer (e.g., pleomorphic adenoma or other primary parotid neoplasm). This can also be further evaluated with ultrasound. Electronically signed on 08/27/2023 12:45:00 PM by Joshua Beltran M.D.
== END 2023-08-26 13:29 | disposition home or self-care (01) ==
LOC: RAD 13:28
PROVIDERS: PCP Family Medicine; Visit Provider Internal Medicine Hematology & Oncology
DX: C18.8 Malignant neoplasm of overlapping sites of colon (principal)
CPT/HCPCS: 78815; A9552

== ENCOUNTER 2023-09-08 09:39 | Outpatient (CLI) | payer OTHER, SELFPAY | END 2023-09-08 09:40 | disposition home or self-care (01) | PROVIDERS: PCP Family Medicine; Referring Provider Family Medicine; Visit Provider Surgery | DX: C18.9 Malignant neoplasm of colon, unspecified (principal) | CPT/HCPCS: 99215; G0463 ==

== ENCOUNTER 2023-11-09 10:00 | Outpatient (RCR) | payer OTHER, SELFPAY ==
[2023-06-02 15:11] LABS: Basophils Absolute Auto 0.04 K/uL (0.00-0.30); Basophils Percent Auto 0.5 % (0.0-3.0); Eosinophils Absolute Auto 0.22 K/uL (0.00-0.50); Eosinophils Percent Auto 2.9 % (0.0-7.0); Immature Granulocytes Abs Auto 0.04 K/uL (0.00-0.30); Immature Granulocytes Pct Auto 0.5 %; Lymphocytes Percent Auto 14.6 % (20-44); Mean Corpuscular HGB Conc 27 gm/dL (32-36); Mean Corpuscular Hemoglobin 19 pg (26-34); Mean Corpuscular Volume 70 fL (80-100); Monocytes Percent Auto 8.4 % (0.0-11.0); Neutrophils Percent Auto 73.1 % (42.0-72.0); Platelet Count* 336 K/uL (140-440); RDW Coefficient of Variation % 30.9 % (11.5-15.5); Red Blood Count 3.73 m/uL (4.30-5.90); White Blood Count* 7.47 K/uL (4.50-11.00)
[2023-06-02 15:16] LABS: Slide Review Reflex No
[2023-06-02 15:30] LABS: Albumin* 3.7 g/dL (3.3-5.0); Chloride* 102 mmol/L (96-114); Potassium* 4.2 mmol/L (3.6-5.1); Sodium* 135 mmol/L (135-149)
[2023-06-02 15:33] LABS: Alanine Aminotransferase* 14 U/L (4-50); Alkaline Phosphatase* 80 U/L (40-150); Anion Gap 7 mEq/L (7-15); Aspartate Amino Transferase* 17 U/L (12-35); Bilirubin Total* 0.6 mg/dL (0.1-1.5); Blood Urea Nitrogen* 9 mg/dL (7-30); Carbon Dioxide* 26 mmol/L (20-32); Creatinine* 0.5 mg/dL (0.5-1.5); Est. Creatinine Clearance* 186.43; Estimated Glomerular Filt Rate 120 ml/min; Glucose* 191 mg/dL (60-115); Total Protein* 6.9 g/dL (6.0-8.3)
[2023-06-03 13:08] VITALS: BP 121/70; PULSE 90; RESP 16; TEMP 36.4; O2SAT 95
[2023-06-03 13:45] VITALS: PULSE 90; RESP 16; TEMP 37.2; O2SAT 95
[2023-06-03] MEDS: 0.9 % SODIUM CHLORIDE 250 ml IV (13:47)
[2023-06-03] MEDS: SODIUM CHLORIDE 0.9 % (FLUSH) 10 ML SYRINGE IVF (13:48)
[2023-06-03 13:59] VITALS: BP 119/69; PULSE 81; RESP 16; TEMP 36.9; O2SAT 95
[2023-06-03 14:01] VITALS: BP 117/71; PULSE 78; RESP 16; TEMP 37.2; O2SAT 94
[2023-06-03 14:46] VITALS: BP 112/68; PULSE 81; RESP 16; TEMP 36.8; O2SAT 96
--- NOTE | 2023-06-03 14:58 | ONC.NURNOTE ---
Lasix: Patient did not take his regular dose of lasix today as I didn't want to have to get up and pee during the infusion. Spoke with FIDEL and she was okay with patient taking when he got home. Lung sounds clear, VS within normal limits, Does have chronic swelling in ankles but patient stated They look like they always do.
[2023-06-03 16:11] VITALS: BP 122/71; PULSE 81; RESP 16; TEMP 37.3; O2SAT 96
--- NOTE | 2023-06-04 14:24 | URNOTE ---
?Request received for authorization for Pembrolizumab (Keytruda) ([id number]). Prior authorization is approved per [employer] on behalf of [facility] (Ref# [id number]) Pembrolizumab is approved for max daily dose of 200mg and total of 12 cycles ([facility] units), date range: 06/03/2023 to 06/07/2024.
[2023-06-10 11:20] LABS: Basophils Percent Auto 0.4 % (0.0-3.0); Eosinophils Percent Auto 0.9 % (0.0-7.0); Hematocrit 27.8 % (37.0-53.0); Immature Granulocytes Pct Auto 0.2 %; Lymphocytes Percent Auto 8.8 % (20-44); Mean Corpuscular HGB Conc 27 gm/dL (32-36); Mean Corpuscular Hemoglobin 19 pg (26-34); Mean Corpuscular Volume 69 fL (80-100); Monocytes Percent Auto 2.8 % (0.0-11.0); Neutrophils Percent Auto 86.9 % (42.0-72.0); Platelet Count* 598 K/uL (140-440); RDW Coefficient of Variation % 29.1 % (11.5-15.5); Red Blood Count 4.01 m/uL (4.30-5.90); White Blood Count* 12.02 K/uL (4.50-11.00)
[2023-06-10 11:32] LABS: Albumin* 3.5 g/dL (3.3-5.0); Chloride* 98 mmol/L (96-114); Sodium* 134 mmol/L (135-149)
[2023-06-10 11:33] LABS: Hemoglobin* 7.6 gm/dL (13.5-17.5); Potassium* 5.5 mmol/L (3.6-5.1)
[2023-06-10 11:34] LABS: Slide Review Reflex No
[2023-06-10 11:35] LABS: Alanine Aminotransferase* 15 U/L (4-50); Alkaline Phosphatase* 100 U/L (40-150); Anion Gap 9 mEq/L (7-15); Aspartate Amino Transferase* 18 U/L (12-35); Bilirubin Total* 0.7 mg/dL (0.1-1.5); Blood Urea Nitrogen* 16 mg/dL (7-30); Carbon Dioxide* 27 mmol/L (20-32); Est. Creatinine Clearance* 93.22; Estimated Glomerular Filt Rate 88 ml/min; Glucose* 283 mg/dL (60-115); Total Protein* 6.7 g/dL (6.0-8.3)
[2023-06-10 11:36] LABS: Calcium* 8.4 mg/dL (8.4-10.6)
--- NOTE | 2023-06-14 13:47 | ONC.NURNOTE ---
Patient called to check on appointments. It was clarified by the clinic nurse with provider, that patient can start keytruda prior to PET scan and within one week of surgery. Patient will be in tomorrow for teaching and infusion.
[2023-06-15] MEDS: SODIUM CHLORIDE 0.9 % (FLUSH) 10 ML SYRINGE IVF (12:10)
[2023-06-15] MEDS: 0.9 % SODIUM CHLORIDE 250 ml IV (12:10)
[2023-06-15] MEDS: PEMBROLIZUMAB 200 MG, TUBING PRIMARY 1 EACH, In-line 0.2 micron filter set 1 EACH in 0.... 216 MG IVPB (12:16)
--- NOTE | 2023-06-16 16:14 | ONC.NURNOTE ---
Called pt day after 1st Keytruda. He is feeling well except for fatigue. Denies fevers, rash, itching or loose stools. He has no concerns or questions. Pet CT tomorrow morning. Pt will call us if any needs arise.
--- NOTE | 2023-06-24 14:44 | ONC.NURNOTE ---
PSDS =3 from day 1 treatment on 06/15/23 symptoms listed included fears, diarrhea, fatigue, feeling swollen, sleep and tingling hands/feet
[2023-07-06] MEDS: HEPARIN 500 UNIT/5 ML SYRINGE IVF (11:15)
[2023-07-06] MEDS: SODIUM CHLORIDE 0.9 % (FLUSH) 10 ML SYRINGE IVF (11:15)
[2023-07-06 11:40] LABS: Basophils Absolute Auto 0.04 K/uL (0.00-0.30); Basophils Percent Auto 0.5 % (0.0-3.0); Eosinophils Percent Auto 3.4 % (0.0-7.0); Hematocrit 34.7 % (37.0-53.0); Hemoglobin* 10.1 gm/dL (13.5-17.5); Immature Granulocytes Abs Auto 0.01 K/uL (0.00-0.30); Immature Granulocytes Pct Auto 0.1 %; Lymphocytes Absolute Auto 1.83 K/uL (0.90-2.90); Lymphocytes Percent Auto 20.9 % (20-44); Mean Corpuscular HGB Conc 29 gm/dL (32-36); Mean Corpuscular Hemoglobin 20 pg (26-34); Mean Corpuscular Volume 69 fL (80-100); Monocytes Percent Auto 10.2 % (0.0-11.0); Neutrophils Absolute Auto 5.69 K/uL (1.7-7.0); Neutrophils Percent Auto 64.9 % (42.0-72.0); Platelet Count* 483 K/uL (140-440); RDW Coefficient of Variation % 25.1 % (11.5-15.5); Red Blood Count 5.06 m/uL (4.30-5.90); White Blood Count* 8.76 K/uL (4.50-11.00)
[2023-07-06 11:52] LABS: Albumin* 4.1 g/dL (3.3-5.0); Chloride* 99 mmol/L (96-114); Sodium* 131 mmol/L (135-149)
[2023-07-06 11:53] LABS: Potassium* 4.3 mmol/L (3.6-5.1)
[2023-07-06 11:55] LABS: Alanine Aminotransferase* 18 U/L (4-50); Alkaline Phosphatase* 121 U/L (40-150); Anion Gap 11 mEq/L (7-15); Aspartate Amino Transferase* 19 U/L (12-35); Bilirubin Total* 0.6 mg/dL (0.1-1.5); Blood Urea Nitrogen* 15 mg/dL (7-30); Carbon Dioxide* 21 mmol/L (20-32); Creatinine* 0.6 mg/dL (0.5-1.5); Est. Creatinine Clearance* 155.36; Estimated Glomerular Filt Rate 113 ml/min; Glucose* 182 mg/dL (60-115); Total Protein* 7.9 g/dL (6.0-8.3)
[2023-07-06 11:56] LABS: Calcium* 9.4 mg/dL (8.4-10.6)
[2023-07-06 12:22] LABS: Slide Review Acceptable Review (Acceptable); Slide Review Reflex Yes
[2023-07-07] MEDS: ALTEPLASE 2 MG INJ IVF (09:19)
[2023-07-07] MEDS: PEMBROLIZUMAB 200 MG, TUBING PRIMARY 1 EACH, In-line 0.2 micron filter set 1 EACH in 0.... 216 MG IVPB (10:32)
[2023-07-07] MEDS: 0.9 % SODIUM CHLORIDE 250 ml IV (11:20)
[2023-07-07] MEDS: SODIUM CHLORIDE 0.9 % (FLUSH) 10 ML SYRINGE IVF (12:33)
[2023-07-07] MEDS: HEPARIN 500 UNIT/5 ML SYRINGE IVF (12:33)
--- NOTE | 2023-07-20 16:16 | ONC.NURNOTE ---
[employer] Dis[employer] Physician statement completed signed by Dr Mcnair and faxed to number given to the [facility] at copy placed in patients chart clinicals included patient aware
[2023-07-23 11:45] VITALS: BMI 40.4
[2023-07-27 11:56] LABS: Basophils Absolute Auto 0.04 K/uL (0.00-0.30); Basophils Percent Auto 0.5 % (0.0-3.0); Eosinophils Absolute Auto 0.25 K/uL (0.00-0.50); Eosinophils Percent Auto 3.2 % (0.0-7.0); Hematocrit 34.9 % (37.0-53.0); Hemoglobin* 9.7 gm/dL (13.5-17.5); Immature Granulocytes Abs Auto 0.01 K/uL (0.00-0.30); Immature Granulocytes Pct Auto 0.1 %; Lymphocytes Absolute Auto 1.56 K/uL (0.90-2.90); Lymphocytes Percent Auto 20.2 % (20-44); Mean Corpuscular HGB Conc 28 gm/dL (32-36); Mean Corpuscular Hemoglobin 20 pg (26-34); Mean Corpuscular Volume 71 fL (80-100); Monocytes Percent Auto 9.9 % (0.0-11.0); Neutrophils Absolute Auto 5.11 K/uL (1.7-7.0); Neutrophils Percent Auto 66.1 % (42.0-72.0); Platelet Count* 316 K/uL (140-440); RDW Coefficient of Variation % 21.4 % (11.5-15.5); Red Blood Count 4.95 m/uL (4.30-5.90); White Blood Count* 7.74 K/uL (4.50-11.00)
[2023-07-27 11:57] LABS: Slide Review Reflex No
[2023-07-27 12:08] LABS: Albumin* 3.8 g/dL (3.3-5.0); Chloride* 100 mmol/L (96-114)
[2023-07-27 12:09] LABS: Potassium* 4.4 mmol/L (3.6-5.1); Sodium* 134 mmol/L (135-149)
[2023-07-27 12:11] LABS: Alkaline Phosphatase* 108 U/L (40-150); Anion Gap 10 mEq/L (7-15); Aspartate Amino Transferase* 21 U/L (12-35); Bilirubin Total* 0.6 mg/dL (0.1-1.5); Carbon Dioxide* 24 mmol/L (20-32); Creatinine* 0.5 mg/dL (0.5-1.5); Est. Creatinine Clearance* 186.43; Estimated Glomerular Filt Rate 120 ml/min; Total Protein* 7.4 g/dL (6.0-8.3)
[2023-07-27 12:12] LABS: Alanine Aminotransferase* 22 U/L (4-50); Blood Urea Nitrogen* 9 mg/dL (7-30); Calcium* 8.9 mg/dL (8.4-10.6); Glucose* 253 mg/dL (60-115)
[2023-07-28] MEDS: PEMBROLIZUMAB 200 MG, TUBING PRIMARY 1 EACH, In-line 0.2 micron filter set 1 EACH in 0.... 216 MG IVPB (10:35)
[2023-07-28] MEDS: HEPARIN 500 UNIT/5 ML SYRINGE IVF ×2 (11:14→11:32)
[2023-07-28] MEDS: SODIUM CHLORIDE 0.9 % (FLUSH) 10 ML SYRINGE IVF (11:15)
[2023-07-28] MEDS: 0.9 % SODIUM CHLORIDE 250 ml IV (11:32)
--- NOTE | 2023-08-03 08:15 | ONC.NURNOTE ---
Patient had genetic counseling meeting in June with labs obtained. Supply Chain Program Manager looked into Epic to get results for provider, and they are still pending. Supply Chain Program Manager called patient to see if labs have been obtained or if there has been a delay. He notes that the labs were done, but he has not heard from them either. Patient has a direct contact that he will contact later today. Supply Chain Program Manager asked that he please update us as well.
[2023-08-16] MEDS: HEPARIN 500 UNIT/5 ML SYRINGE IVF (14:46)
[2023-08-16] MEDS: SODIUM CHLORIDE 0.9 % (FLUSH) 10 ML SYRINGE IVF (14:46)
[2023-08-16 14:51] LABS: Basophils Absolute Auto 0.03 K/uL (0.00-0.30); Basophils Percent Auto 0.4 % (0.0-3.0); Eosinophils Absolute Auto 0.26 K/uL (0.00-0.50); Eosinophils Percent Auto 3.7 % (0.0-7.0); Hematocrit 36.8 % (37.0-53.0); Hemoglobin* 9.8 gm/dL (13.5-17.5); Immature Granulocytes Abs Auto 0.02 K/uL (0.00-0.30); Immature Granulocytes Pct Auto 0.3 %; Lymphocytes Absolute Auto 1.68 K/uL (0.90-2.90); Lymphocytes Percent Auto 23.7 % (20-44); Mean Corpuscular HGB Conc 27 gm/dL (32-36); Mean Corpuscular Hemoglobin 19 pg (26-34); Mean Corpuscular Volume 72 fL (80-100); Monocytes Percent Auto 9.6 % (0.0-11.0); Neutrophils Absolute Auto 4.43 K/uL (1.7-7.0); Neutrophils Percent Auto 62.3 % (42.0-72.0); Platelet Count* 256 K/uL (140-440); RDW Coefficient of Variation % 22.9 % (11.5-15.5); Red Blood Count 5.15 m/uL (4.30-5.90)
[2023-08-16 15:08] LABS: Albumin* 3.8 g/dL (3.3-5.0); Chloride* 104 mmol/L (96-114); Sodium* 138 mmol/L (135-149)
[2023-08-16 15:09] LABS: Potassium* 4.3 mmol/L (3.6-5.1)
[2023-08-16 15:11] LABS: Alanine Aminotransferase* 17 U/L (4-50); Alkaline Phosphatase* 98 U/L (40-150); Anion Gap 5 mEq/L (7-15); Aspartate Amino Transferase* 22 U/L (12-35); Bilirubin Total* 0.7 mg/dL (0.1-1.5); Blood Urea Nitrogen* 9 mg/dL (7-30); Carbon Dioxide* 29 mmol/L (20-32); Creatinine* 0.6 mg/dL (0.5-1.5); Est. Creatinine Clearance* 155.36; Estimated Glomerular Filt Rate 113 ml/min; Glucose* 165 mg/dL (60-115); Total Protein* 7.5 g/dL (6.0-8.3)
[2023-08-16 15:12] LABS: Calcium* 8.8 mg/dL (8.4-10.6)
[2023-08-16 15:22] LABS: Slide Review Reflex Yes
[2023-08-16 15:45] LABS: Slide Review Acceptable Review (Acceptable)
[2023-08-18 10:30] VITALS: BP 121/70; PULSE 84; RESP 20; TEMP 36.1; O2SAT 94
[2023-08-18] MEDS: PEMBROLIZUMAB 200 MG, TUBING PRIMARY 1 EACH, In-line 0.2 micron filter set 1 EACH in 0.... 216 MG IVPB (11:08)
[2023-08-18] MEDS: HEPARIN 500 UNIT/5 ML SYRINGE IVF (11:46)
[2023-08-18] MEDS: SODIUM CHLORIDE 0.9 % (FLUSH) 10 ML SYRINGE IVF (11:46)
[2023-08-18] MEDS: 0.9 % SODIUM CHLORIDE 250 ml IV (12:05)
--- NOTE | 2023-08-18 12:05 | ONC.NURNOTE ---
Patient recently discharged from [facility] following LE and and Lung blood clots. Ok to treat per Oncology note last visit. Labs wnl.
[2023-09-07 10:04] LABS: Basophils Absolute Auto 0.04 K/uL (0.00-0.30); Basophils Percent Auto 0.6 % (0.0-3.0); Eosinophils Absolute Auto 0.23 K/uL (0.00-0.50); Eosinophils Percent Auto 3.2 % (0.0-7.0); Hematocrit 43.5 % (37.0-53.0); Hemoglobin* 12.5 gm/dL (13.5-17.5); Immature Granulocytes Abs Auto 0.02 K/uL (0.00-0.30); Immature Granulocytes Pct Auto 0.3 %; Lymphocytes Absolute Auto 1.66 K/uL (0.90-2.90); Lymphocytes Percent Auto 23.3 % (20-44); Mean Corpuscular HGB Conc 29 gm/dL (32-36); Mean Corpuscular Hemoglobin 21 pg (26-34); Mean Corpuscular Volume 73 fL (80-100); Monocytes Percent Auto 9.3 % (0.0-11.0); Neutrophils Percent Auto 63.3 % (42.0-72.0); Platelet Count* 289 K/uL (140-440); RDW Coefficient of Variation % 25.4 % (11.5-15.5); Red Blood Count 5.97 m/uL (4.30-5.90); White Blood Count* 7.11 K/uL (4.50-11.00)
[2023-09-07 10:05] LABS: Slide Review Reflex No
[2023-09-07 10:17] LABS: Albumin* 4.5 g/dL (3.3-5.0); Chloride* 101 mmol/L (96-114); Potassium* 4.4 mmol/L (3.6-5.1); Sodium* 135 mmol/L (135-149)
[2023-09-07 10:20] LABS: Alanine Aminotransferase* 29 U/L (4-50); Alkaline Phosphatase* 135 U/L (40-150); Anion Gap 11 mEq/L (7-15); Aspartate Amino Transferase* 23 U/L (12-35); Blood Urea Nitrogen* 17 mg/dL (7-30); Carbon Dioxide* 23 mmol/L (20-32); Creatinine* 0.6 mg/dL (0.5-1.5); Est. Creatinine Clearance* 155.36; Estimated Glomerular Filt Rate 113 ml/min; Glucose* 246 mg/dL (60-115); Total Protein* 8.5 g/dL (6.0-8.3)
[2023-09-07 10:21] LABS: Calcium* 9.1 mg/dL (8.4-10.6)
[2023-09-08] MEDS: PEMBROLIZUMAB 200 MG, TUBING PRIMARY 1 EACH, In-line 0.2 micron filter set 1 EACH in 0.... 216 MG IVPB (10:50)
[2023-09-08] MEDS: 0.9 % SODIUM CHLORIDE 250 ml IV (10:56)
[2023-09-08] MEDS: HEPARIN 500 UNIT/5 ML SYRINGE IVF (10:56)
[2023-09-08] MEDS: SODIUM CHLORIDE 0.9 % (FLUSH) 10 ML SYRINGE IVF (10:56)
--- NOTE | 2023-09-09 10:01 | ONC.NURNOTE ---
Lillian Information Request received- with no signed JACQUIE from Des attached Drainman spoke with Des yesterday about the request for medical information to assist in providing support for inpt chemo, hospice, clinical trials, infusions, DME and oxygen Other than oxygen and DME the above list of medical care will be handled by 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
--- NOTE | 2023-09-16 12:34 | PC.NURSE ---
Pt called today as his medical leave has him returning to work after 09/17/2023. Pt states he is due to work Wednesday evening. Dr. Mcnair is not in clinic until Wednesday. Keanu feels well and states he is capable of doing his job and would like to give it a shot. We discussed going back to work after this leave and then needing another one for his next surgery, pt verbalized understanding, however, would like to return to work at this time. Will update Dr. Mcnair. Also of note, pt was referred to [facility] colorectal oncology surgery program to discuss ostomy reversal surgery. He is scheduled for imaging on 09/30/2023 and will see a surgeon after that. He doesn't know what date that consult will be. Will provide this documentation to Dr. Mcnair for her to review.
--- NOTE | 2023-09-20 15:29 | ONC.NURNOTE ---
Patient called to say his employer was going to fax over return to work papers. He states he doesnt lift. 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 He states he checked with his employer. If he returns back to work less than 30 days before his surgery in 6 weeks, he doesnt need to file new papers for a leave. Dayanara QUEEN aware.
[2023-09-28 08:23] LABS: Basophils Absolute Auto 0.03 K/uL (0.00-0.30); Basophils Percent Auto 0.4 % (0.0-3.0); Eosinophils Absolute Auto 0.18 K/uL (0.00-0.50); Eosinophils Percent Auto 2.6 % (0.0-7.0); Hematocrit 45.9 % (37.0-53.0); Hemoglobin* 13.4 gm/dL (13.5-17.5); Immature Granulocytes Abs Auto 0.01 K/uL (0.00-0.30); Immature Granulocytes Pct Auto 0.1 %; Lymphocytes Percent Auto 22.8 % (20-44); Mean Corpuscular HGB Conc 29 gm/dL (32-36); Mean Corpuscular Hemoglobin 23 pg (26-34); Mean Corpuscular Volume 77 fL (80-100); Neutrophils Absolute Auto 4.51 K/uL (1.7-7.0); Neutrophils Percent Auto 64.1 % (42.0-72.0); Platelet Count* 262 K/uL (140-440); RDW Coefficient of Variation % 23.9 % (11.5-15.5); Red Blood Count 5.95 m/uL (4.30-5.90); White Blood Count* 7.03 K/uL (4.50-11.00)
[2023-09-28 08:44] LABS: Slide Review Reflex Yes
[2023-09-28 08:53] LABS: Slide Review Acceptable Review (Acceptable)
[2023-09-28 09:02] LABS: Albumin* 4.2 g/dL (3.3-5.0); Chloride* 104 mmol/L (96-114)
[2023-09-28 09:03] LABS: Potassium* 4.3 mmol/L (3.6-5.1); Sodium* 136 mmol/L (135-149)
[2023-09-28 09:05] LABS: Alkaline Phosphatase* 121 U/L (40-150); Anion Gap 7 mEq/L (7-15); Aspartate Amino Transferase* 23 U/L (12-35); Bilirubin Total* 0.8 mg/dL (0.1-1.5); Blood Urea Nitrogen* 13 mg/dL (7-30); Carbon Dioxide* 25 mmol/L (20-32); Creatinine* 0.6 mg/dL (0.5-1.5); Est. Creatinine Clearance* 153.51; Estimated Glomerular Filt Rate 113 ml/min; Total Protein* 7.3 g/dL (6.0-8.3)
[2023-09-28 09:06] LABS: Alanine Aminotransferase* 27 U/L (4-50); Calcium* 8.8 mg/dL (8.4-10.6); Glucose* 217 mg/dL (60-115)
[2023-09-28] MEDS: HEPARIN 500 UNIT/5 ML SYRINGE IVF (10:21)
[2023-09-28] MEDS: SODIUM CHLORIDE 0.9 % (FLUSH) 10 ML SYRINGE IVF (10:21)
[2023-09-29 07:59] VITALS: BP 135/84; PULSE 71; RESP 16; TEMP 35.9; O2SAT 96
[2023-09-29] MEDS: SODIUM CHLORIDE 0.9 % (FLUSH) 10 ML SYRINGE IVF ×2 (08:40→09:42)
[2023-09-29] MEDS: 0.9 % SODIUM CHLORIDE 250 ml IV (08:40)
[2023-09-29] MEDS: PEMBROLIZUMAB 200 MG, TUBING PRIMARY 1 EACH, In-line 0.2 micron filter set 1 EACH in 0.... 216 MG IVPB (09:05)
[2023-09-29] MEDS: HEPARIN 500 UNIT/5 ML SYRINGE IVF (09:41)
--- NOTE | 2023-10-07 11:30 | PC.NURSE ---
Received a call from BRET Alvarezproject intern from [employer] this morning after pt's consult with Dr. Krishnamurthy, hepatobiliary surgical oncologist. Per Antonio, Dr. Krishnamurthy is recommending left hepatectomy (left half the liver) and cholecystectomy to remove the liver lesion. Pt will be seeing Dr. Gaspar, surgical oncologist, to discuss the ostomy take down procedure tomorrow. Antonio has a few questions: 1) Does Dr. Mcnair feel it's necessary to follow up with [facility] regarding the parotid lesion (s/p inconclusive biopsy and ENT rec 3 month f/u) prior to surgery as mentioned above? Or can that be deferred until a later date? 2) Is Dr. Mcnair still ok with surgery taking place after cycle 8 of Keytruda on 11/10/2023? Antonio was updated that Dr. Mcnair is out until 10/18/2023 and that Keanu is scheduled to see her on 10/20/2023 when he is due for his next infusion. Will share these questions with BRET Nichole and Dr. Mcnair and someone will follow-up with BRET Alvarez.
[2023-10-19] MEDS: HEPARIN 500 UNIT/5 ML SYRINGE IVF (08:38)
[2023-10-19] MEDS: SODIUM CHLORIDE 0.9 % (FLUSH) 10 ML SYRINGE IVF (08:38)
[2023-10-19 08:46] LABS: Basophils Absolute Auto 0.03 K/uL (0.00-0.30); Basophils Percent Auto 0.4 % (0.0-3.0); Eosinophils Absolute Auto 0.23 K/uL (0.00-0.50); Eosinophils Percent Auto 2.8 % (0.0-7.0); Hematocrit 47.7 % (37.0-53.0); Hemoglobin* 14.5 gm/dL (13.5-17.5); Immature Granulocytes Abs Auto 0.01 K/uL (0.00-0.30); Immature Granulocytes Pct Auto 0.1 %; Lymphocytes Absolute Auto 1.64 K/uL (0.90-2.90); Lymphocytes Percent Auto 20.2 % (20-44); Mean Corpuscular HGB Conc 30 gm/dL (32-36); Mean Corpuscular Hemoglobin 24 pg (26-34); Mean Corpuscular Volume 79 fL (80-100); Neutrophils Absolute Auto 5.54 K/uL (1.7-7.0); Neutrophils Percent Auto 68.5 % (42.0-72.0); Platelet Count* 242 K/uL (140-440); RDW Coefficient of Variation % 21.6 % (11.5-15.5); Red Blood Count 6.06 m/uL (4.30-5.90)
[2023-10-19 08:47] LABS: Slide Review Reflex No
[2023-10-19 08:58] LABS: Albumin* 4.2 g/dL (3.3-5.0)
[2023-10-19 08:59] LABS: Chloride* 102 mmol/L (96-114); Potassium* 4.3 mmol/L (3.6-5.1); Sodium* 135 mmol/L (135-149)
[2023-10-19 09:01] LABS: Anion Gap 10 mEq/L (7-15); Aspartate Amino Transferase* 25 U/L (12-35); Bilirubin Total* 0.7 mg/dL (0.1-1.5); Carbon Dioxide* 23 mmol/L (20-32); Creatinine* 0.6 mg/dL (0.5-1.5); Est. Creatinine Clearance* 153.51; Estimated Glomerular Filt Rate 113 ml/min; Total Protein* 7.6 g/dL (6.0-8.3)
[2023-10-19 09:02] LABS: Alanine Aminotransferase* 29 U/L (4-50); Alkaline Phosphatase* 133 U/L (40-150); Blood Urea Nitrogen* 16 mg/dL (7-30); Calcium* 9.2 mg/dL (8.4-10.6); Glucose* 208 mg/dL (60-115)
[2023-10-20] MEDS: PEMBROLIZUMAB 200 MG, TUBING PRIMARY 1 EACH, In-line 0.2 micron filter set 1 EACH in 0.... 216 MG IVPB (10:19)
[2023-10-20] MEDS: SODIUM CHLORIDE 0.9 % (FLUSH) 10 ML SYRINGE IVF ×2 (10:20→11:05)
[2023-10-20] MEDS: HEPARIN 500 UNIT/5 ML SYRINGE IVF (11:05)
--- NOTE | 2023-10-22 14:37 | ONC.NURNOTE ---
Addendum entered by Susana Biggs RN 11/03/23 13:46: Left message for Antonio to follow up to determine surgical plan of care for pt. Antonio- GI Navigator [phone], fax- [phone]. Original Note: Call from Aman Alvarez. He was trying to facilitate a phone conversation with Dr. Mcnair and the GI/hepatobiliary surgeons. I informed him that she is on PTO until 10/31. I faxed the most recent office note to them and assured him that I would pass his contact information on to Dr. Mcnair's clinic nurse.
[2023-11-08 09:18] LABS: Eosinophils Percent Auto 2.5 % (0.0-7.0); Hematocrit 48.4 % (37.0-53.0); Hemoglobin* 14.7 gm/dL (13.5-17.5); Lymphocytes Percent Auto 18.5 % (20-44); Mean Corpuscular HGB Conc 30 gm/dL (32-36); Mean Corpuscular Hemoglobin 25 pg (26-34); Mean Corpuscular Volume 82 fL (80-100); Monocytes Percent Auto 7.9 % (0.0-11.0); Neutrophils Percent Auto 70.5 % (42.0-72.0); Platelet Count* 209 K/uL (140-440); RDW Coefficient of Variation % 19.2 % (11.5-15.5); Red Blood Count 5.94 m/uL (4.30-5.90); White Blood Count* 7.46 K/uL (4.50-11.00)
[2023-11-08 09:19] LABS: Basophils Absolute Auto 0.04 K/uL (0.00-0.30); Basophils Percent Auto 0.5 % (0.0-3.0); Eosinophils Absolute Auto 0.19 K/uL (0.00-0.50); Immature Granulocytes Abs Auto 0.01 K/uL (0.00-0.30); Immature Granulocytes Pct Auto 0.1 %; Neutrophils Absolute Auto 5.25 K/uL (1.7-7.0)
[2023-11-08 09:23] LABS: Slide Review Reflex No
[2023-11-08 09:32] LABS: Albumin* 4.1 g/dL (3.3-5.0)
[2023-11-08 09:33] LABS: Chloride* 103 mmol/L (96-114); Potassium* 4.2 mmol/L (3.6-5.1); Sodium* 135 mmol/L (135-149)
[2023-11-08 09:35] LABS: Anion Gap 8 mEq/L (7-15); Aspartate Amino Transferase* 22 U/L (12-35); Bilirubin Total* 0.6 mg/dL (0.1-1.5); Carbon Dioxide* 24 mmol/L (20-32); Creatinine* 0.6 mg/dL (0.5-1.5); Est. Creatinine Clearance* 153.51; Estimated Glomerular Filt Rate 113 ml/min; Total Protein* 7.1 g/dL (6.0-8.3)
[2023-11-08 09:36] LABS: Alanine Aminotransferase* 25 U/L (4-50); Alkaline Phosphatase* 138 U/L (40-150); Blood Urea Nitrogen* 14 mg/dL (7-30); Calcium* 8.9 mg/dL (8.4-10.6); Glucose* 295 mg/dL (60-115)
[2023-11-09] MEDS: 0.9 % SODIUM CHLORIDE 250 ml IV (10:30)
[2023-11-09] MEDS: PEMBROLIZUMAB 200 MG, TUBING PRIMARY 1 EACH, In-line 0.2 micron filter set 1 EACH in 0.... 216 MG IVPB (10:45)
[2023-11-09] MEDS: HEPARIN 500 UNIT/5 ML SYRINGE IVF (11:20)
[2023-11-09] MEDS: SODIUM CHLORIDE 0.9 % (FLUSH) 10 ML SYRINGE IVF (11:20)
[2023-11-11 02:08] LABS: Carcinoembryonic Antigen 3.3 ng/mL (<=3.8)
--- NOTE | 2023-11-19 13:27 | ONC.NURNOTE ---
This office received [employer] request for disability This office has not be completing request for leave [employer] was contacted that this should be completed by patients surgeon- as he will be going to surg in the coming week news writer attempted to call [phone]- unable to reach medical office representative and extended hold # left for automated call back
--- NOTE | 2023-11-29 14:28 | ONC.NURNOTE ---
Received disability papers from [facility]. Called [facility] back at [phone] to call Keanu to fill out the papers and then send them to [facility] surgeon.
== END 2023-11-29 23:59 | disposition home or self-care (01) ==
LOC: CCIC 10:00
PROVIDERS: Clinical Nurse Specialist; PCP Family Medicine; Referring Provider Family Medicine; Visit Provider Internal Medicine Hematology & Oncology
DX: C18.9 Malignant neoplasm of colon, unspecified (principal); Z51.12 Encounter for antineoplastic immunotherapy; Z86.718 Personal history of other venous thrombosis and embolism; Z79.01 Long term (current) use of anticoagulants; D64.9 Anemia, unspecified; E11.9 Type 2 diabetes mellitus without complications
CPT/HCPCS: 36415; 36430; 36591; 70553; 80053; 82378; 84443; 85025; 86850; 86870; 86880; 86900; 86901; 86922; 96376; 96413; 97802; 99202; 99205; 99211; 99215; G0463; A9575; J1642; J2997; J7050; J9271; P9016

== ENCOUNTER 2023-12-06 09:48 | Outpatient (CLI) | payer OTHER, SELFPAY ==
--- OUTSIDE RECORDS SUMMARY | 2023-12-06 09:51 | XMS_ITS | Clinical Summary ---
Author Organization [facility] Address [address] [place] [id number] Care Team Providers Care Overhead Foreman Name Role Phone Unavailable Primary Care Provider Unavailabl e Allergies No known active allergies Medications Medication Sig Dispensed Refills Start Date End Date Status ONE TOUCH ULTRA TEST strip 10/04/2009 Active ONE TOUCH ULTRASOFT LANCETS MISC 05/03/2009 Active Blood Glucose Calibration (ONE TOUCH ULTRA CONTROL) SOLN 05/03/2009 Activ e Blood Glucose Monitoring Suppl (ONE TOUCH ULTRA 2) W/DEVICE KIT 05/03/2009 Active MetFORmin (GLUCOPHAGE) 500 MG tablet Take 500 mg by mouth 2 times daily. 01/20/2010 Active silver sulfADIAZINE (SILVADENE) 1 % external creamIndications:Diabet ic polyneuropathy associated with type 2 diabetes mellitus (H),Morbid obesity (H),Foot pain, bilateral,Dystrophic nail,Pre-ulcerative calluses Apply topically 2 times daily 25 g 1 05/01/2022 Active ketoconazole (NIZORAL) 2 % external creamIndications:Diabet ic polyneuropathy associated with type 2 diabetes mellitus (H),Morbid obesity (H),Foot pain, bilateral,Dystrophic nail,Pre-ulcerative calluses Apply topically daily 30 g 6 05/01/2022 Active Active Problems Problem Noted Date Diagnosed Date Morbid obesity 05/01/2022 Social History Tobacco Use Types Packs/Day Years Used Date Smoking Tobacco: Never Assessed Tobacco Cessation:Counseling Given: Yes Adolescent Education Answer Date Record ed Getting School Help Needed Not on file 01/10 Sex and Gender Information Value Date Recorded Sex Assigned at Not on file Gender Identity Not on file Sexual Orientation Not on file Last Filed Vital Signs Vital Sign Reading Time Taken Comments Blood Pressure 118/74 05/01/2022 12:40 PM DRY CANS BACK TENDER Pulse - - Temperature - - Respiratory Rate - - Oxygen Saturation - - Inhaled Oxygen Concentration - - Weight 147 kg (324 lb) 05/01/2022 12:40 PM DRY CANS BACK TENDER Height 185.4 cm (6' 1) 05/01/2022 12:40 PM DRY CANS BACK TENDER Body Mass Index 42.75 05/01/2022 12:40 PM DRY CANS BACK TENDER Plan of Treatment Health Maintenance Due Date Last Done Comments ADVANCE CARE PLANNING 1965 ANNUAL REVIEW OF HM ORDERS 1966 CT COLONOGRAPHY 1965 DIABETIC FOOT EXAM 1965 FIT 1965 FLEX SIG 1965 LIPID 1965 MICROALBUMIN 1965 YEARLY PREVENTIVE VISIT 1965 sDNA (Cologuard) 1965 Pneumococcal Vaccine: Pediatrics (0 to 5 Years) and At-Risk Patients (6 to 64 Years) (1 of 2 - PCV) 1972 COLONOSCOPY 1976 COLORECTAL CANCER SCREENING 1976 HIV SCREENING 1981 HEPATITIS C SCREENING 1984 HEPATITIS B IMMUNIZATION (1 of 3 - 19+ 3-dose series) 1985 A1C 07/30/2009 05/01/2009 BMP 05/03/2010 05/03/2009, 05/01/2009 ZOSTER IMMUNIZATION (1 of 2) 2016 DTAP/TDAP/TD IMMUNIZATION (2 - Td or Tdap) 04/26/2019 04/26/2009 EYE EXAM 05/29/2021 05/29/2020 COVID-19 Vaccine (3 - 2022-2 4 season) 2022 01/24/2021, 11/20/2020 PHQ-2 (once per calendar year) 2023 INFLUENZA VACCINE (#1) 2023 9, 02/25/2018, 01/20/2017 HPV IMMUNIZATION Aged Out No longer e ligible based on patient's age to complete this topic IPV IMMUNIZATION Aged Out No longer e ligible based on patient's age to complete this topic MENINGITIS IMMUNIZATION Aged Out No l onger eligible based on patient's age to complete this topic RSV MONOCLONAL ANTIBODY Aged Out No l onger eligible based on patient's age to complete this topic Procedures Procedure Name Priority Date/Time Associated Diagnosis Comments EYE EXAM - HIM SCAN 05/29/2020 1 2:00 AM DRY CANS BACK TENDER BASIC METABOLIC PANEL Routine 05/03/2009 6:25 AM DRY CANS BACK TENDER HEMOGLOBIN A1C Routine 05/01/2009 7:25 PM DRY CANS BACK TENDER from Last 3 Months or Most Recently Relevant to Health Maintenance Results * EYE EXAM - HIM SCAN (05/29/2020 12:00 AM DRY CANS BACK TENDER) RETINOPATHY NEGATIVE 05/29/2020 Narrative Bridgett Osorio - 05/29/2020 12:00 AM DRY CANS BACK TENDER DIABETIC EYE EXAM [facility] Provider Outside OTHER * (ABNORMAL) Basic metabolic panel (05/03/2009 6:25 AM DRY CANS BACK TENDER) Sodium 133 133 - 144 mmol/L [facility] Potassium 4.1 3.4 - 5.3 mmol/L [facility] Chloride 97 94 - 109 mmol/L [facility] Carbon Dioxide 30 20 - 32 mmol/L [facility] Glucose 215(H) 60 - 99 mg/dL [facility] Urea Nitrogen 12 5 - 24 mg/dL [facility] Creatinine 0.63(L) 0.66 - 1.25 mg/dL [facility] Comment:New IDMS-traceable c alibration beginning 08/18/07 GFR Estimate >90 >60 mL/min/1.7 m2 [facility] GFR Estimate If Black >90 >60 mL/min/1.7 m2 [facility] Calcium 8.6 8.5 - 10.4 mg/dL [facility] Anion Gap 5(L) 6 - 17 mmol/L [facility] 05/03/2009 6:25 AM DRY CANS BACK TENDER 05/02/2009 2:26 PM DRY CANS BACK TENDER Kenrick Corrales MD LAB - BLOOD OR DERABLES [facility] * (ABNORMAL) Hemoglobin A1c (05/01/2009 7:25 PM DRY CANS BACK TENDER) Hemoglobin A1C 13.6(H) 4.3 - 6.0 % [facility] Comment:Reviewed, acceptable 05/01/2009 7:25 PM DRY CANS BACK TENDER 05/01/2009 8:29 PM DRY CANS BACK TENDER Tonya Byrd MD LAB - BLOOD ORDERABL ES [facility] from Last 3 Months or Most Recently Relevant to Health Maintenance
--- OUTSIDE RECORDS SUMMARY | 2023-12-06 09:51 | XMS_ITS | Encounter Summary ---
Author Organization [facility] Address [address] [place] [address] Care Team Providers Care Bail Attacher Name Role Phone Unavailable Primary Care Provider Unavailabl e Encounter Details Date Type Department Care Team (Latest Contact Info) Description 08/31/2023 Clinical Communication Department of Otorhinolaryngology in [place], [place] [address] [place] [phone] Glenny Montejo M.D. [address] [place] [phone] Social History Tobacco Use Types Packs/Day Years Used Date Smoking Tobacco: Never Assessed Nutrition Answer Date Recorded Nutrition: EVOO Fat Source Unknown 06/08 Nutrition: Servings of Fruits/Vegetables per Day Not on file 06/08/2023 Dental Answer Date Recorded Dental: Regular Dentist Unknown 06/08/19 24 Sex and Gender Information Value Date Recorded Sex Assigned at Not on file Gender Identity Not on file Sexual Orientation Not on file documented as of this encounter Miscellaneous Notes * Telephone Encounter - Kassie Merrill RLudmilaNLudmila - 08/31/2023 8:45 AM CDT SUBJECTIVE CHIEF COMPLAINT / REASON FOR CALL Parotid Biopsy Information Discussed Called patient per Dr. Montejo. I spoke with patient about his recent biopsy results and that the biopsy came back nondiagnostic. However, in light of his recent hospitalization for an acute pulmonary embolism we would like to give him some time to recover from this. I let him know that Dr. Montejo would like to see him back in 3 months with a repeat Ultrasound and biopsy. We also discussed things to watch for in the mean time such as the mass growing quickly or if he has any pain or tinglingin the right parotid area. I let him know that if any of this occurs to reach out to us and we willseem him sooner. All questions were answered. PLAN Information/Education: patient/caller able to teach back Caller agreeable to plan of care: yes The following references were used: nursing clinical judgement and provider Dr. Montejo * Telephone Encounter - Kassie Merrill R.N. - 08/31/2023 8:44 AM CDT ----- Message from Nilesh Tarango M.D. sent at 08/30/2023 2:41 PM CDT ----- Regarding: Help with scheduling surgeyr and preop visit Hi team, Would anyone please be able to give this patient a call and schedule surgery and preop visit? 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 We are planning to do right superficial parotidectomy, possible total parotidectomy, possible neck dissection, possible abdominal fat graft. Thank you so much, Celi Sanchez Dr.'s resident documented in this encounter Plan of Treatment Upcoming Encounters Date Type Department Care Team (Latest Contact Info) Description 12/28/2023 9:30 AM CDT Clinical Communication Virtual Review in [place], [place] [address] [place] [address] 12/30/2023 7:30 AM CDT Appointment Department of Radiology, [facility], in [address] [phone] Glenny Montejo M.D. [address] [place] [phone] 12/30/2023 9:00 AM CDT Appointment Department of Radiology, [facility], in [address] [phone] Glenny Montejo M.D. [address] [place] [phone] 12/30/2023 11:15 AM CDT Office Visit Department of Otorhinolaryngology in [place], [place] [address] [place] [phone] Glenny Montejo M.D. [address] [place] [phone] documented as of this encounter Visit Diagnoses Not on filedocumented in this encounter
--- OUTSIDE RECORDS SUMMARY | 2023-12-06 09:51 | XMS_ITS | Clinical Summary ---
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 Active insulin regular hum U-500 conc (HumuLIN R U-500) 500 unit/mL (3 mL) pen Inject 80-85 units subcutaneous three times daily before meals. Active atorvastatin (LIPITOR) 40 mg tablet Take 40 mg by mouth once daily. Active ezetimibe (Zetia) 10 mg tablet Take 10 mg by mouth once daily. Active levothyroxine (SYNTHROID) 50 mcg tablet Take 50 mcg by mouth once daily. Active metFORMIN (GLUCOPHAGE) 500 mg tablet Take 1,000 mg by mouth two times daily with meals. 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 30 Tablet 08/13/2023 Active rivaroxaban (Xarelto DVT-PE Treat 30d Start) 15 mg (42)- 20 mg (9) starter packIndications:Acut e saddle pulmonary embolism with acute cor pulmonale (HC) Take as directed on package. After completion of the starter pack, refill and start taking 20 mg daily. 51 Tablet 08/13/2023 Active lisinopriL (PRINIVIL; ZESTRIL) 10 mg tabletIndications:Hy pertension, unspecified type Take 1 Tablet (10 mg) by mouth once daily. HOLD this medication until you follow up with your primary care physician 08/27/2023 Active rivaroxaban (Xarelto) 20 mg tablet Take 1 Tablet (20 mg) by mouth once daily with a meal. 30 Tablet 08/13/2023 Active ondansetron (ZOFRAN ODT) [address] 4 mg on the tongue every 8 hours if needed for Nausea/Vomiting. 08/15/2023 Active prochlorperazine (Compazine) 5 mg tablet Take 5 mg by mouth once daily if needed for Nausea/Vomiting. 08/15/2023 Active Active Problems Problem Noted Date Diagnosed Date Acute pulmonary embolism with acute cor pulmonal e 08/09/2023 Acute deep vein thrombosis (DVT) of right lower extremity 08/09/2023 Colon cancer 08/09/2023 Hyperlipidemia 08/09/2023 Hypothyroid 08/09/2023 HTN (hypertension) 08/09/2023 Diabetes mellitus type II 10/09/2009 Overview: a system change updated this record. This will not affect patient care or billing. This comment can be deleted. Encounters Date Type Department Care Team Description 11/23/2023 10:53 AM CDT - 11/23/2023 11:59 PM CDT Hospital Encounter [facility] Outpatient Medical Imaging [address] [place] [address] Elizabeth Mcnair MD Malignant neoplasm of overlapping sites of colon (HC) 11/23/2023 Travel 11/10/2023 Telephone [facility] [address] [place] [address] [place], [facility] Cancer Surgery Scheduled (Staging laparoscopy, intraoperative ultrasound of the liver, laparoscopic IVb/V with cholecystectomy, possible open, proceed as indicated.) 10/26/2023 Orders Only [facility] [address] [place] [address] Scott Krishnamurthy MBBS <No scans attached> 10/08/2023 10:30 AM CDT Office Visit [facility] [address], [place] [address] Emilio Gaspar MD Consult 10/07/2023 9:00 AM CDT Office Visit [facility] [address], [place] [address] Scott Krishnamurthy MBBS Consult 10/07/2023 Travel 10/06/2023 Telephone [facility] [address], [place] [address] Scott Krishnamurthy MBBS PVC 09/30/2023 2:21 PM CDT - 09/30/2023 11:59 PM CDT Hospital Encounter [facility] Medical Imaging [address] [place] [address] Scott Krishnamurthy MBBS Adenocarcinoma of colon (HC) 09/30/2023 2:20 PM CDT Hospital Encounter [facility] Medical Imaging [address], [place] [address] Scott Krishnamurthy MBBS Adenocarcinoma of colon (HC) 09/30/2023 Travel 09/21/2023 Telephone [facility] [address] [facility] [address] [place] [address] Emilio Gaspar MD Appointment 09/21/2023 Telephone [facility] [address] [place] [address] Scott Krishnamurthy MBBS Patient Questions 09/16/2023 Telephone [facility] [id number] [place] [phone] [facility] Cancer Lab (Please schedule patient for a lab only appointment for I-STAT Creatinine [address] scan. ??This appointment is OK to double book on the [facility] Schedule ONLY. ??Call patient to notify them./??) 09/16/2023 Orders Only [facility] [id number] [place] [phone] [facility] Cancer <No scans attached> 09/09/2023 Orders Only [facility] Scanner 1 scan: (1-Ord) INCOMING RECORDS-MULTIPLE IMAGE [facility], 09/09/2023 09/09/2023 Orders Only [facility] Scanner 1 scan: (1-Ord) INCOMING RECORDS-EKG, [facility], 09/09/2023 09/09/2023 Orders Only [facility] Scanner 1 scan: (1-Ord) INCOMING RECORDS-US, [facility], 09/09/2023 09/09/2023 Orders Only [facility] Scanner 1 scan: (1-Ord) INCOMING RECORDS-CT, [facility], 09/09/2023 09/09/2023 Orders Only [facility] Scanner 1 scan: (1-Ord) INCOMING RECORDS-[facility], 09/09/2023 09/09/2023 Orders Only [facility] Scanner 1 scan: (1-Ord) INCOMING RECORDS-CT, [facility], 09/09/2023 09/09/2023 Orders Only [facility] Scanner 1 scan: (1-Ord) INCOMING RECORDS-MRI, [facility], 09/09/2023 09/09/2023 Orders Only [facility] Scanner 1 scan: (1-Ord) INCOMING RECORDS-CT, [facility], 09/09/2023 09/09/2023 Orders Only [facility] Scanner 1 scan: (1-Ord) INCOMING RECORDS-STRESS TEST, [facility], 09/09/2023 09/09/2023 Orders Only [facility] Scanner 1 scan: (1-Ord) INCOMING RECORDS-MRI, [facility], 09/09/2023 09/09/2023 Telephone [facility] [address] [place] [address] [place], [facility] Cancer Referral (Mets with Colon Cancer ); Lab (Please schedule patient for a lab only appointment for I-STAT Creatinine [address] scan. ??This appointment is OK to double book on the [facility] Schedule ONLY. ??Call patient to notify them./??); Questions from Last 3 Months Immunizations Name Administration Dates Next Due Tdap 04/26/2009 Family History Medical History Relation Name Comments Brain cancer Mother Relation Name Status Comments Father Mother Social History Tobacco Use Types Packs/Day Years Used Date Smoking Tobacco: Never Smokeless Tobacco: Never Alcohol Use Standard Drinks/Week Comments Yes 0 (1 standard drink = 0.6 oz pur e alcohol) rare Social Connections Answer Date Recorded Frequency of Communication with Friends and Fami ly Not on file 08/09/2023 Sex and Gender Information Value Date Recorded Sex Assigned at Not on file Gender Identity Not on file Sexual Orientation Not on file Obstetrics History Last Filed Vital Signs Vital Sign Reading Time Taken Comments Blood Pressure 133/73 10/08/2023 10:18 AM CDT Pulse 83 10/08/2023 10:18 AM CDT Temperature 37 ??C (98.6 ??F) 10/08/2023 10:18 AM CDT Respiratory Rate 18 10/08/2023 10:18 AM CDT Oxygen Saturation 96% 10/08/2023 10:18 AM CDT Inhaled Oxygen Concentration - - Weight 145.6 kg (321 lb) 10/08/2023 10:18 AM CDT Height 185.4 cm (6' 1) 10/08/2023 10:18 AM CDT Body Mass Index 42.35 10/08/2023 10:18 AM CDT Plan of Treatment Upcoming Encounters Date Type Department Care Team (Latest Contact Info) Description 12/17/2023 7:45 AM CDT Hospital Encounter [facility] [address] [place] [address] Scott Krishnamurthy MBBS [address] [address] 12/17/2023 7:45 AM CDT - 12/17/2023 6:03 PM CDT Surgery [facility] [address] [place] [address] Scott Krishnamurthy MBBS [address] [address] Staging laparoscopy, intraoperative ultrasound of the liver, Scheduled Procedures Name Priority Associated Diagnoses Date/Ti me LAPAROSCOPY STAGING Elective Colorectal cancer, stage IV (HC) 12/17/2023 7:45 AM CDT LAPAROSCOPIC RESECTION LIVER Elective Colorectal cancer, stage IV (HC) 12/17/2023 7:45 AM CDT LAPAROSCOPIC CHOLECYSTECTOMY Elective Colorectal cancer, stage IV (HC) 12/17/2023 7:45 AM CDT RESECTION LIVER Elective Colorectal cancer, stage IV (HC) 12/17/2023 7:45 AM CDT CHOLECYSTECTOMY Elective Colorectal cancer, stage IV (HC) 12/17/2023 7:45 AM CDT ALEXANDRA COLECTOMY RIGHT Elective Colorectal cancer, stage IV (HC) 12/17/2023 7:45 AM CDT TAKEDOWN ILEOSTOMY Elective Colorectal cancer, stage IV (HC) 12/17/2023 7:45 AM CDT ALEXANDRA COLECTOMY RIGHT Malignant neoplasm of colon, unspecified part of colon (HC) TAKEDOWN ILEOSTOMY Malignant neoplasm of colon, unspecified part of colon (HC) Health Maintenance Due Date Last Done Comments Pneumococcal series for age 6-64 (1 of 2 - PCV) 1972 Depression screening for age 12+ 1978 HIV for age 15-65 1981 Hepatitis C screening for ag e 18-79 1984 Hepatitis B series for Diabe juan (1 of 3 - 19+ 3-dose series) 1985 Zoster (shingles) series for age 50+ (1 of 2) 1985 Colonoscopy through age 75 09/27/2011 Lipids for age 45-75 02/10/2015 02/10/2010, 01/20/2010, 01/20/2010, Additional history exists Tetanus booster 04/26/2019 04/26/2009 COVID-19 vaccine series (3 - Pfizer risk series) 02/21/2021 01/24/2021, 11/20/2020 Influenza for age 50-64 12/19/2023 BMI (ht and wt on same day) for age 18+ 10/07/2024 10/08/2023, 10/07/2023 Tdap Completed 04/26/2009 Procedures Procedure Name Priority Date/Time Associated Diagnosis Comments PET CT SKULL BASE TO MID THIGH SUBSEQUENT TREAT Routine 11/23/2023 12:01 PM CDT Malignant neoplasm of overlapping sites of colon (HC) GLUCOSE METER Routine 11/23/2023 11:[address] CHEST W ABDOMEN LIVER WWO PELVIS W WANDY 09/30/2023 5:16 PM CDT Adenocarcinoma of colon (HC) MR ABDOMEN LIVER WWO WANDY 09/30/2023 5:00 PM CDT Adenocarcinoma of colon (HC) CBC WITH AUTO DIFFERENTIAL Routine 09/30/2023 2:34 PM CDT Adenocarcinoma of colon (HC) CBC WITH AUTO DIFFERENTIAL Routine 09/30/2023 2:34 PM CDT Adenocarcinoma of colon (HC) MAGNESIUM Routine 09/30/2023 2:34 PM CDT Adenocarcinoma of colon (HC) PHOSPHORUS Routine 09/30/2023 2:34 PM CDT Adenocarcinoma of colon (HC) PREALBUMIN Routine 09/30/2023 2:34 PM CDT Adenocarcinoma of colon (HC) LIPASE Routine 09/30/2023 2:34 PM CDT Adenocarcinoma of colon (HC) PROTIME-INR Routine 09/30/2023 2:34 PM CDT Adenocarcinoma of colon (HC) AMYLASE Routine 09/30/2023 2:34 PM CDT Adenocarcinoma of colon (HC) HEPATIC FUNCTION PANEL Routine 09/30/2023 2:34 PM CDT Adenocarcinoma of colon (HC) CEA Routine 09/30/2023 2:34 PM CDT Adenocarcinoma of colon (HC) BASIC METABOLIC PANEL Routine 09/30/2023 2:34 PM CDT Adenocarcinoma of colon (HC) SCAN CORRESP-EKG RESULTS 09/09/2023 12:00 AM CDT SCAN CORRESP-IMAGING 09/09/2023 12:00 AM CDT SCAN CORRESP-IMAGING 09/09/2023 12:00 AM CDT SCAN CORRESP-IMAGING 09/09/2023 12:00 AM CDT SCAN CORRESP-IMAGING 09/09/2023 12:00 AM CDT SCAN CORRESP-IMAGING 09/09/2023 12:00 AM CDT SCAN CORRESP-IMAGING 09/09/2023 12:00 AM CDT SCAN CORRESP-IMAGING 09/09/2023 12:00 AM CDT SCAN CORRESP-IMAGING 09/09/2023 12:00 AM CDT SCAN CORRESP-DIAGNOSTICS 09/09/2023 12:00 AM CDT LDL CHOLESTEROL,DIRECT Routine 02/10/2010 10:05 AM CDT Routine general medical examination at a [facility] care facility from Last 3 Months or Most Recently Relevant to Health Maintenance Results * PET CT SKULL BASE TO MID THIGH SUBSEQUENT TREAT (11/23/2023 12:01 PM CDT) Anatomical Region Laterality Modality Positron Emissio n Tomography (PET) 11/23/2023 2:33 PM CDT Impressions 11/23/2023 2:33 PM CDT 1. Clear decrease in the size of the left hepatic lobe segment IV lesion. Resolution of the previously identified increased metabolic activity associated with this metastasis. 2. Clear decrease in the size and metabolic activity associated with a right mid mesenteric april mass, SUV max 3.8 previously measured in retrospect at 9.5. 3. Resolution of the high-level activity within the proximal transverse colon again compatible with an excellent response to therapy. 4. Persistent but improving nonspecific/indeterminate focal activity posterior left neck subcutaneous soft tissues, SUV max 6.1, previously 16.0. 5. No focally metabolically active parotid gland lesion which had been described previously. Intermediate level activity associated with the posterior right parotid gland. Clinical correlation recommended regarding any recent interventional procedure/biopsies. 6. No new areas of abnormal increased metabolic activity Dictated by Nikita Meza MD @ 11/23/2023 2:33:10 PM (Electronically Signed) Narrative 11/23/2023 2:33 PM CDT For Patients: ??As a result of the Cures Act, medical imaging exams and procedure reports are released immediately into your electronic medical record. ??You may view this report before your referring provider. ??If you have questions, please contact your health care provider. INDICATION: 58 year-old male. 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 Chemotherapy/immunotherapy (Keytruda). Surgically created loop ileostomy. 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 Follow-up. Restaging. TECHNIQUE: 8.4 mCi 18 FDG (18 [id number]-glucose) injected intravenously. Imaging performed from the mid forehead to the mid thighs [address] performed for anatomic correlation and attenuation correction. Pre scan glucose: 112 mg/dL. COMPARISON: Outside PET/CT scan August 26, 2023 from [facility]. Correlation is made with a CT of the chest abdomen and pelvis September 30, 2023. Correlation is made with an MRI of the liver September 30, 2023. FINDINGS: Physiologic activity is identified in the brain, salivary glands, tongue, paralaryngeal soft tissues, myocardium, GI, and tract. The included intracranial structures and included soft tissues of the head and face are within normal limits. Metabolically inactive polyp or retention cyst right maxillary sinus. Within the superficial soft tissue/skin of the posterior left neck there is a focus of increased metabolic activity, SUV max 6.1, previously 16.0. This is indeterminate but could be infectious or inflammatory in nature. A metastasis would be considered unlikely. A previously identified discrete metabolically active focus in the posterior right parotid gland demonstrated an SUV max of 4.7. Today there is no longer focal activity. Activity measured in the posterior parotid gland today demonstrates an SUV max of 3.7. Please correlate clinically regarding any history of surgery or biopsy of a reported parotid lesion. No abnormal increased metabolic activity within the thyroid gland. Within the chest there is no evidence for metabolically active metastatic disease within either lung or thoracic lymph node groups. (Benign metabolically inactive calcified granulomas left upper lobe and right lower lobe). Within the abdomen there has been resolution of the metabolic activity associated with a segment IV lesion/metastasis. There is no increased activity in this location. ??(Background hepatic activity SUV max 5.0) The corresponding CT demonstrates a subtle area of decreased attenuation compatible with a treated metastasis. No new metabolically active hepatic metastases. The other solid upper abdominal organs are unremarkable. Stable diverting ostomy right lower quadrant. The previously identified metabolically active mass within the transverse colon is no longer convincingly metabolically active. There is a slightly lobulated soft tissue mass/april mass within the right mid abdomen just posterior to the transverse colon which may reflect treated lymphadenopathy, SUV max 3.0, measured in retrospect at 9.5 (erroneously reported as 2.93). No new areas of abnormal increased metabolic activity within the abdomen, pelvis, or either inguinal region. Normal included skeleton. CT Findings: Mucosal thickening/partial opacification inferior right maxillary sinus. Subtle subcutaneous nodular focus posterior left neck image 238 series 201. Right-sided Port-A-Cath with its lead tip in the superior vena cava. Calcified granulomas within the right lower lobe of the lung and left upper lobe. Hepatic fatty infiltration. Low-attenuation subcapsular lesion in segment 4 left hepatic lobe. No splenomegaly or hydronephrosis. Nonobstructing left renal stones. Cholelithiasis. Normal adrenal glands. Lobulated soft tissue mass right upper mid mesentery measuring approximate 3.5 x 4 cm previously 5 cm. Postsurgical change from a right lower quadrant ileostomy. No bowel obstruction or ileus. No ascites. Slight prostatic enlargement with prostatic calcification. Procedure Note Nikita Meza MD - 11/23/2023 For Patients: As a result of the Century Cures Act, medical imagingexams and procedure reports are released immediately into your electronicmedical record. You may view this report before your referring provider.If you have questions, please contact your health care provider. INDICATION: 58 year-old male. History of a low-grade moderately-differentiatedadenocarcinoma of the mid transverse colon with reported mesentericmetastatic lymphadenopathy and a liver metastasis in segment IV.Chemotherapy/immunotherapy (Keytruda). 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 Follow-up.Restaging. TECHNIQUE: 8.4 mCi 18 FDG (18 sphikg-gz-vey-glucose) injected intravenously. Imaging performed from the mid forehead to the mid thighs [address] performed for anatomic correlation and attenuation correction. Pre scanglucose: 112 mg/dL. COMPARISON: Outside PET/CT scan August 26, 2023 from [facility]. Correlation is made with a CT of the chest abdomen and pelvis September. Correlation is made with an MRI of the liver September 30, 2023. FINDINGS: Physiologic activity is identified in the brain, salivary glands, tongue,paralaryngeal soft tissues, myocardium, GI, and tract. The included intracranial structures and included soft tissues of the headand face are within normal limits. Metabolically inactive polyp or retention cyst right maxillary sinus. Within the superficial soft tissue/skin of the posterior left neck thereis a focus of increased metabolic activity, SUV max 6.1, previously 16.0. This is indeterminate but could be infectious or inflammatory in nature. Ametastasis would be considered unlikely. A previously identified discrete metabolically active focus in theposterior right parotid gland demonstrated an SUV max of 4.7. Today thereis no longer focal activity. Activity measured in the posterior parotidgland today demonstrates an SUV max of 3.7. Please correlate clinicallyregarding any history of surgery or biopsy of a reported parotid lesion. No abnormal increased metabolic activity within the thyroid gland. Within the chest there is no evidence for metabolically active metastaticdisease within either lung or thoracic lymph node groups. (Benign metabolically inactive calcified granulomas left upper lobe andright lower lobe). Within the abdomen there has been resolution of the metabolic activityassociated with a segment IV lesion/metastasis. There is no increased activity in this location. (Background hepaticactivity SUV max 5.0) The corresponding CT demonstrates a subtle area of decreased attenuationcompatible with a treated metastasis. No new metabolically active hepatic metastases. The other solid upperabdominal organs are unremarkable. Stable diverting ostomy right lower quadrant. The previously identified metabolically active mass within the transversecolon is no longer convincingly metabolically active. There is a slightly lobulated soft tissue mass/april mass within the rightmid abdomen just posterior to the transverse colon which may reflecttreated lymphadenopathy, SUV max 3.0, measured in retrospect at 9.5(erroneously reported as 2.93). No new areas of abnormal increased metabolic activity within the abdomen,pelvis, or either inguinal region. Normal included skeleton. CT Findings: Mucosal thickening/partial opacification inferior rightmaxillary sinus. Subtle subcutaneous nodular focus posterior left neckimage 238 series 201. Right-sided Port-A-Cath with its lead tip in thesuperior vena cava. Calcified granulomas within the right lower lobe ofthe lung and left upper lobe. Hepatic fatty infiltration. Low-attenuationsubcapsular lesion in segment 4 left hepatic lobe. No splenomegaly orhydronephrosis. Nonobstructing left renal stones. Cholelithiasis. Normaladrenal glands. Lobulated soft tissue mass right upper mid mesenterymeasuring approximate 3.5 x 4 cm previously 5 cm. Postsurgical change froma right lower quadrant ileostomy. No bowel obstruction or ileus. Noascites. Slight prostatic enlargement with prostatic calcification. IMPRESSION: 1. Clear decrease in the size of the left hepatic lobe segment IV lesion.Resolution of the previously identified increased metabolic activityassociated with this metastasis. 2. Clear decrease in the size and metabolic activity associated with aright mid mesenteric april mass, SUV max 3.8 previously measured inretrospect at 9.5. 3. Resolution of the high-level activity within the proximal transversecolon again compatible with an excellent response to therapy. 4. Persistent but improving nonspecific/indeterminate focal activityposterior left neck subcutaneous soft tissues, SUV max 6.1, [id number]. 5. No focally metabolically active parotid gland lesion which had beendescribed previously. Intermediate level activity associated with theposterior right parotid gland. Clinical correlation recommended regardingany recent interventional procedure/biopsies. 6. No new areas of abnormal increased metabolic activity Dictated by Nikita Meza MD @ 11/23/2023 2:33:10 PM (Electronically Signed) Elizabeth Mcnair MD PET * (ABNORMAL) GLUCOSE METER (11/23/2023 11:00 AM CDT) GLUCOSE METER 112(H) 65 - 100 mg/dL 11/23/2023 11:06 AM CDT [facility] Blood BLOOD SPECIMEN / Unknown 11/23/2023 11:00 AM CDT 11/23/2023 11:06 AM CDT Elizabeth Mcnair MD CHEMISTRY [facility] [address] [place] [address], [place] * CT CHEST W ABDOMEN LIVER WWO PELVIS W (09/30/2023 5:16 PM CDT) Anatomical Region Laterality Modality CHEST, Abdomen, LIVER, Pelvis Co mputed Tomography 10/01/2023 3:05 PM CDT Impressions 10/01/2023 3:05 PM CDT 1. No metastatic disease in the chest. 2. Good treatment response involving the solitary metastatic deposit in segment 4 of the liver as well as mesenteric lymphadenopathy when compared to the previous imaging. 3. Gallstones. 4. Nonobstructive intrarenal calculi left kidney. Please note that all CT scans at this facility use dose modulation, iterative reconstruction, and/or weight-based dosing when appropriate to reduce radiation dose to as low as reasonably achievable. Dictated by Hina Werner MD @ Oct 01 2023 ??3:05PM (Electronically Signed) [email or web address] Narrative 10/01/2023 3:05 PM CDT For Patients: ??As a result of the Century Cures Act, medical imaging exams and procedure reports are released immediately into your electronic medical record. ??You may view this report before your referring provider. ??If you have questions, please contact your health care provider. INDICATION: Carcinoma transverse colon with metastatic disease; assess treatment response. COMPARISON: MRI of the abdomen 05/25/2023 and September 30, 2023; PET-CT 07/01/2023 and August 26, 2023; CT abdomen and pelvis without and with intravenous contrast 05/24/2023; CT chest, abdomen and pelvis with intravenous contrast 05/25/2023; CT chest with intravenous contrast August 09, 2023. TECHNIQUE: CT chest, abdomen and pelvis with intravenous contrast; CT abdomen without intravenous contrast; coronal and sagittal reformats. FINDINGS: Significant resolution of the pulmonary thromboembolism when compared to August 09, 2023. Minimal filling defects identified within the right lower lobe pulmonary artery. Calcified granulomas left upper lobe and right lower lobe. No abnormal intra pulmonary nodular densities are identified. No evidence of pleural effusion or chest wall pathology. No abnormal mediastinal or hilar lymphadenopathy. Port-A-Cath in place. Solitary metastatic deposit identified in segment 4 of the liver measuring 5.5 x 2 cm; was measuring 7.6 x 5.2 cm in May 2023 indicating significant treatment response. No other metastatic deposits identified in the liver. No splenic pathology . No pancreatic pathology. Gallstones. No adrenal pathology. Nonobstructing renal calculi left kidney. Cortical cyst left kidney. Mesenteric lymphadenopathy in the root of the small bowel mesentery measuring 3 cm in maximum dimension; was measuring 4.5 cm in May 2023. ??again appreciated is a mass involving the mid transverse colon ( extra colonic mass) measuring 4.7 cm in maximum dimension ; was measuring 5.6 cm in May 2023. Aortocaval lymph node measuring 1.2 cm in short axis diameter as opposed to 1.7 cm on the previous study; this area did not show any metabolic activity on the previous PET-CT. Stable appearing left periaortic lymph nodes when compared to May 2023; these nodes did reveal increased metabolic activity on the previous PET-CT from June 2023 and no activity in August 2023. No evidence of abdominal or pelvic ascites. No abnormal pelvic lymphadenopathy. Ileostomy right lower quadrant of the abdomen. Procedure Note Hina Werner, ANA LAURA - 10/01/2023 For Patients: As a result of the Century Cures Act, medical imagingexams and procedure reports are released immediately into your electronicmedical record. You may view this report before your referring provider.If you have questions, please contact your health care provider. INDICATION: Carcinoma transverse colon with metastatic disease; assess treatmentresponse. COMPARISON: MRI of the abdomen 05/25/2023 and September 30, 2023; PET-CT 07/01/2023 and 2023; CT abdomen and pelvis without and with intravenous [id number]/05/2024; CT chest, abdomen and pelvis with intravenous [id number]/06/2024; CT chest with intravenous contrast August 09, 2023. TECHNIQUE: CT chest, abdomen and pelvis with intravenous contrast; CT abdomen withoutintravenous contrast; coronal and sagittal reformats. FINDINGS: Significant resolution of the pulmonary thromboembolism when compared toApr2023. Minimal filling defects identified within the right lowerlobe pulmonary artery. Calcified granulomas left upper lobe and rightlower lobe. No abnormal intra pulmonary nodular densities are identified.No evidence of pleural effusion or chest wall pathology. No abnormalmediastinal or hilar lymphadenopathy. Port-A-Cath in place. Solitarymetastatic deposit identified in segment 4 of the liver measuring 5.5 x 2cm; was measuring 7.6 x 5.2 cm in May 2023 indicating significanttreatment response. No other metastatic deposits identified in the liver.No splenic pathology . No pancreatic pathology. Gallstones. No adrenalpathology. Nonobstructing renal calculi left kidney. Cortical cyst leftkidney. Mesenteric lymphadenopathy in the root of the small bowelmesentery measuring 3 cm in maximum dimension; was measuring 4.5 cm inFebruary 2023. again appreciated is a mass involving the mid transversecolon ( extra colonic mass) measuring 4.7 cm in maximum dimension ; wasmeasuring 5.6 cm in May 2023. Aortocaval lymph node measuring 1.2 cmin short axis diameter as opposed to 1.7 cm on the previous study; thisarea did not show any metabolic activity on the previous PET-CT. Stableappearing left periaortic lymph nodes when compared to May 2023;these nodes did reveal increased metabolic activity on the previous PET-CTfrom June 2023 and no activity in August 2023. No evidence of abdominal orpelvic ascites. No abnormal pelvic lymphadenopathy. Ileostomy right lowerquadrant of the abdomen. IMPRESSION: 1. No metastatic disease in the chest. 2. Good treatment response involving the solitary metastatic deposit insegment 4 of the liver as well as mesenteric lymphadenopathy when comparedto the previous imaging. 3. Gallstones. 4. Nonobstructive intrarenal calculi left kidney. Please note that all CT scans at this facility use dose modulation,iterative reconstruction, and/or weight-based dosing when appropriate toreduce radiation dose to as low as reasonably achievable. Dictated by Hina Werner MD @ Oct 01 2023 3:05PM (Electronically Signed) [email or web address] Scott [facility] CT * MR ABDOMEN LIVER WWO (09/30/2023 5:00 PM CDT) Anatomical Region Laterality Modality Abdomen, LIVER Magnetic Resonan ce 10/01/2023 12:5 3 PM CDT Narrative 10/01/2023 12:53 PM CDT For Patients: ??As a result of the Cures Act, medical imaging exams and procedure reports are released immediately into your electronic medical record. ??You may view this report before your referring provider. ??If you have questions, please contact your health care provider. INDICATION: Colon cancer. COMPARISON: PET-CT scans dated 26 Aug 2023 and 01 July 2023. Abdominal MRI dated 25 May 2023. Technique : Abdominal MRI with T1 in and out of phase, T2, diffusion weighted, and progressively delayed post-contrast images. Intravenous gadolinium administered. Findings : No fatty infiltration of the liver. 5.3 x 2.6 cm heterogeneous enhancing mass in segment 4 of liver, previously 6.9 x 5.0 cm. No new liver lesions identified. No focal abnormalities identified in the visualized portions of the spleen, pancreas, and adrenal glands. Small bilateral renal cysts. The kidneys are otherwise unremarkable. No hydronephrosis. No adenopathy. A few gallstones in otherwise normal-appearing gallbladder. No bile duct dilation. Pulmonary nodule in the posterior aspect of the right lower lobe is better evaluated on previous PET-CT or CT images. Annular thickening with a 3.6 cm mass extending off the mid transverse colon is decreased in size, previously 4.9 cm. Impression : 1. Metastatic lesion in segment 4 of the liver is decreased in size. 2. The mass extending off the transverse colon is decreased in size. Dictated by Steven Schwab MD @ 10/01/2023 12:53:09 PM (Electronically Signed) Procedure Note Steven Schwab MD - 10/01/2023 For Patients: As a result of the Cures Act, medical imagingexams and procedure reports are released immediately into your electronicmedical record. You may view this report before your referring provider.If you have questions, please contact your health care provider. INDICATION: Colon cancer. COMPARISON: PET-CT scans dated 26 Aug 2023 and 01 July 2023. Abdominal MRI dated 25 May 2023. Technique : Abdominal MRI with T1 in and out of phase, T2, diffusion weighted, andprogressively delayed post-contrast images. Intravenous gadoliniumadministered. Findings : No fatty infiltration of the liver. 5.3 x 2.6 cm heterogeneous enhancing mass in segment 4 of liver,previously 6.9 x 5.0 cm. No new liver lesions identified. No focal abnormalities identified in the visualized portions of thespleen, pancreas, and adrenal glands. Small bilateral renal cysts. The kidneys are otherwise unremarkable. Nohydronephrosis. No adenopathy. A few gallstones in otherwise normal-appearing gallbladder. No bile ductdilation. Pulmonary nodule in the posterior aspect of the right lower lobe is betterevaluated on previous PET-CT or CT images. Annular thickening with a 3.6 cm mass extending off the mid transversecolon is decreased in size, previously 4.9 cm. Impression : 1. Metastatic lesion in segment 4 of the liver is decreased in size. 2. The mass extending off the transverse colon is decreased in size. Dictated by Steven Schwab MD @ 10/01/2023 12:53:09 PM (Electronically Signed) Scott DU MR * (ABNORMAL) CBC WITH AUTO DIFFERENTIAL (09/30/2023 2:34 PM CDT) WHITE BLOOD COUNT 8.7 4.5 - 11.0 thou/cu mm 09/30/2023 2:49 PM CDT [facility] RED BLOOD COUNT 6.24(H) 4.30 - 5.90 mil/cu mm 09/30/2023 2:49 PM CDT [facility] HEMOGLOBIN 14.3 13.5 - 17.5 g/dL 09/30/2023 2:49 PM CDT [facility] HEMATOCRIT 47.5 37.0 - 53.0 % 09/30/2023 2:49 PM CDT [facility] MCV 76(L) 80 - 100 fL 09/30/2023 2:49 PM CDT [facility] MCH 22.9(L) 26.0 - 34.0 pg 09/30/2023 2:49 PM CDT [facility] MCHC 30.1(L) 32.0 - 36.0 g/dL 09/30/2023 2:49 PM CDT [facility] RDW 23.9(H) 11.5 - 15.5 % 09/30/2023 2:49 PM CDT [facility] PLATELET COUNT 287 140 - 440 thou/cu mm 09/30/2023 2:49 PM CDT [facility] MPV 8.4 6.5 - 11.0 fL 09/30/2023 2:49 PM CDT [facility] NRBC 0.0 % 09/30/2023 2:49 PM CDT [facility] ABS NRBC 0.0 thou /cu mm 09/30/2023 2:49 PM CDT [facility] % NEUT 62.2 % 09/30/2023 2:49 PM CDT [facility] % LYMPH 25.2 % 09/30/2023 2:49 PM CDT [facility] % MONO 8.7 % 09/30/2023 2:49 PM CDT [facility] % EOS 3.1 % 09/30/2023 2:49 PM CDT [facility] % BASO 0.6 % 09/30/2023 2:49 PM CDT [facility] % IMMATURE GRAN (METAS,MYELOS,WV OS) 0.2 % 09/30/2023 2:49 PM CDT [facility] ABSOLUTE NEUTROPHILS 5.4 1.7 - 7.0 thou/cu mm 09/30/2023 2:49 PM CDT [facility] ABSOLUTE LYMPHOCYTES 2.2 0.9 - 2.9 thou/cu mm 09/30/2023 2:49 PM CDT [facility] ABSOLUTE MONOCYTES 0.8 <0.9 thou/cu mm 09/30/2023 2:49 PM CDT [facility] ABSOLUTE EOSINOPHILS 0.3 <0.5 thou/cu mm 09/30/2023 2:49 PM CDT [facility] ABSOLUTE BASOPHILS 0.1 <0.3 thou/cu mm 09/30/2023 2:49 PM CDT [facility] ABSOLUTE IMMATURE GRANULOCYTES(MET ,MYELOS,PROS) 0.0 <0.3 thou/cu mm 09/30/2023 2:49 PM CDT [facility] Blood BLOOD SPECIMEN / Unknown Butterfly / Unknown 09/30/2023 2:34 PM CDT 09/30/2023 2:39 PM CDT Narrative [facility] - 09/30/2023 2:49 PM CDT This procedure was originally ordered at [facility]. This procedure was originally ordered at [facility]. [facility] HEMATOLOGY Performing Organization Address City/[facility]/ZIP Co de Phone Number [facility] [address] [place] [address], [place] * AMYLASE (09/30/2023 2:34 PM CDT) AMYLASE 42 28 - 100 IU/L 09/30/2023 3:25 PM CDT [facility] Blood BLOOD SPECIMEN / Unknown Butterfly / Unknown 09/30/2023 2:34 PM CDT 09/30/2023 2:39 PM CDT Scott DU CHEMISTRY [facility] [address] [place] [address], [place] * PROTIME-INR (09/30/2023 2:34 PM CDT) INR 1.1 <1.3 09/30/2023 3:03 PM CDT [facility] PROTIME 11.8 10.3 - 12.3 sec 09/30/2023 3:03 PM CDT [facility] Blood BLOOD SPECIMEN / Unknown Butterfly / Unknown 09/30/2023 2:34 PM CDT 09/30/2023 2:39 PM CDT Narrative [facility] - 09/30/2023 3:03 PM CDT ?Therapeutic Range 2.0-3.0 for most anticoagulated patients 2.5-3.5 or 4.0 for high risk patients The INR is only used for patients on stable oral anticoagulant therapy. It makes no significant contribution to the diagnosis or treatment of patients whose Protime is prolonged for other reasons. INR results are increased when heparin levels exceed 1.0 U/mL, which corresponds to an aPTT >125 seconds if the patient is on UFH. [facility] HEMATOLOGY Performing Organization Address [facility] Co de Phone Number [facility] [address] [place] [address], * PREALBUMIN (09/30/2023 2:34 PM CDT) PREALBUMIN 20.9 20.0 - 40.0 mg/dL 09/30/2023 3:17 PM CDT [facility] Blood BLOOD SPECIMEN / Unknown Butterfly / Unknown 09/30/2023 2:34 PM CDT 09/30/2023 2:39 PM CDT Scott [facility] CHEMISTRY Performing Organization Address [facility] Co de Phone Number [facility] [address] [place] [address], * PHOSPHORUS (09/30/2023 2:34 PM CDT) PHOSPHORUS 4.4 2.5 - 4.5 mg/dL 09/30/2023 3:25 PM CDT [facility] Blood BLOOD SPECIMEN / Unknown Butterfly / Unknown 09/30/2023 2:34 PM CDT 09/30/2023 2:39 PM CDT Scott [facility] CHEMISTRY Performing Organization Address [facility] Co de Phone Number [facility] [address] [place] [address], * MAGNESIUM (09/30/2023 2:34 PM CDT) MAGNESIUM 2.0 1.6 - 2.6 mg/dL 09/30/2023 3:25 PM CDT [facility] Blood BLOOD SPECIMEN / Unknown Butterfly / Unknown 09/30/2023 2:34 PM CDT 09/30/2023 2:39 PM CDT Scott [facility] CHEMISTRY Performing Organization Address City/[facility]/ZIP Co de Phone Number [facility] [address] [place] [address], * LIPASE (09/30/2023 2:34 PM CDT) LIPASE 37.2 13.0 - 60.0 IU/L 09/30/2023 3:25 PM CDT [facility] Blood BLOOD SPECIMEN / Unknown Butterfly / Unknown 09/30/2023 2:34 PM CDT 09/30/2023 2:39 PM CDT Scott DU CHEMISTRY [facility] [address] [place] [address], * CEA (09/30/2023 2:34 PM CDT) CEA 3.7 ng/mL 09/30/2023 6:32 PM CDT [facility] Blood BLOOD SPECIMEN / Unknown Butterfly / Unknown 09/30/2023 2:34 PM CDT 09/30/2023 2:39 PM CDT Narrative [facility] - 09/30/2023 6:32 PM CDT ?CEA Ranges Age Range ? Reference Range 20 years up to 70 years (all subjects) ?<4.8 ng/mL 40 years up to 70 years (all subjects) ?<5.3 ng/mL 20 years up to 70 years (non smoker) ?<3.9 ng/mL 40 years up to 70 years (non smoker) ?<5.1 ng/mL 20 years up to 70 years (smoker) ?<5.6 ng/mL 40 years up to 70 years (smoker) ?<6.6 ng/mL The test method changed on 04/21/2022. If this test has been used for serial monitoring, rebaselining is recommended. Rebaselining consists of 2 measurements, collected 3-6 weeks apart. The [employer] CEA assay is an electrochemiluminescence immunoassay ECLIA performed on the Mat[employer] Trinidad e immunoassy analyzers. ?? Values obtained with different assay methods may be different and cannot be used interchangeably. ? Biotin supplements may cause clinically significant interference for this test assay. If interference is suspected, it is strongly recomended that biotin is discontinued for at least one week prior to retesting. Scott [facility] CHEMISTRY [facility] [address] [place] [address], * (ABNORMAL) HEPATIC FUNCTION PANEL (09/30/2023 2:34 PM CDT) ALBUMIN 4.1 4.0 - 4.9 g/dL 09/30/2023 3:25 PM CDT [facility] PROTEIN,TOTAL 7.7 6.0 - 8.0 g/dL 09/30/2023 3:25 PM CDT [facility] BILIRUBIN,TOTAL 0.4 0.0 - 1.2 mg/dL 09/30/2023 3:25 PM CDT [facility] BILIRUBIN,DIRECT <0.2 0.0 - 0.3 mg/dL 09/30/2023 3:25 PM CDT [facility] BILIRUBIN,INDIRE CT 09/30/2023 3:25 PM CDT [facility] Comment:Unable to calculate, Direct Bili <0.2 ALK PHOSPHATASE 130(H) 40 - 129 IU/L 09/30/2023 3:25 PM CDT [facility] ALT (SGPT) 16 10 - 50 IU/L 09/30/2023 3:25 PM CDT [facility] AST (SGOT) 20 10 - 50 IU/L 09/30/2023 3:25 PM CDT [facility] Blood BLOOD SPECIMEN / Unknown Butterfly / Unknown 09/30/2023 2:34 PM CDT 09/30/2023 2:39 PM CDT Scott DU CHEMISTRY [facility] [address] [place] [address], * (ABNORMAL) BASIC METABOLIC PANEL (09/30/2023 2:34 PM CDT) SODIUM 137 136 - 145 mmol/L 09/30/2023 3:25 PM CDT [facility] POTASSIUM 4.0 3.5 - 5.1 mmol/L 09/30/2023 3:25 PM CDT [facility] CHLORIDE 102 98 - 107 mmol/L 09/30/2023 3:25 PM CDT [facility] CO2,TOTAL 22 22 - 29 mmol/L 09/30/2023 3:25 PM CDT [facility] ANION GAP 13 5 - 18 09/30/2023 3:25 PM CDT [facility] GLUCOSE 136(H) 70 - 99 mg/dL 09/30/2023 3:25 PM CDT [facility] CALCIUM 9.3 8.6 - 10.0 mg/dL 09/30/2023 3:25 PM CDT [facility] BUN 15 6 - 20 mg/dL 09/30/2023 3:25 PM CDT [facility] CREATININE 0.62(L) 0.70 - 1.20 mg/dL 09/30/2023 3:25 PM CDT [facility] BUN/CREAT RATIO 24(H) 10 - 20 3:25 PM CDT [facility] eGFR >90 >90 mL/min/1.7 3m2 09/30/2023 3:25 PM CDT [facility] Comment:As of 2021, eG FR is calculated by the CKD-EPI creatinine equation without race adjustment. ??eGFR can be influenced by muscle mass, exercise, and diet. ??The reported eGFR is an estimation only and is only applicable if the renal function is stable. Blood BLOOD SPECIMEN / Unknown Butterfly / Unknown 09/30/2023 2:34 PM CDT 09/30/2023 2:39 PM CDT [facility] [address] [place] [id number] * SCAN CORRESP-EKG RESULTS (09/09/2023 12:00 AM CDT) Scanner OTHER * SCAN CORRESP-DIAGNOSTICS (09/09/2023 12:00 AM CDT) Scanner OTHER * SCAN CORRESP-IMAGING (09/09/2023 12:00 AM CDT) Only the most recent of8 resultswithin the time period is included. Anatomical Region Laterality Modality Other Scanner OTHER * LDL CHOLESTEROL,DIRECT (02/10/2010 10:05 AM CDT) LDL CHOLESTEROL,D IRECT 124 Undefined mg/dL [facility] Comment: ?RISK CATEGORY LDL GOAL ?(mg/dL) ? Vascular disease and/or diabetes (<100) ? Multiple (2+) risk factors ? (<130) ? 0-1 risk factor ?(<160) Blood specimen (specimen) BLOOD SPECIMEN / Unknown 02/10/2010 10:05 AM CDT 02/10/2010 9:53 AM CDT Aman HALEY CHEMISTRY [facility] INTERNAL ZIP [id number] [place] [id number] from Last 3 Months or Most Recently Relevant to Health Maintenance Advance Directives * Full Code (Latest Code Status on File) Date Activated Date Inactivated Comments 08/16/2023 9:25 AM * Full Code Date Activated Date Inactivated Comments 08/09/2023 10:14 PM 08/13/2023 5:36 PM Discussed w ith patient 08/09/2023 Question Answer Comments Code Status Discussion: Reviewed Preferences 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
--- OUTSIDE RECORDS SUMMARY | 2023-12-06 09:51 | XMS_ITS | Clinical Summary ---
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 For routine questions regarding patient records, call [phone] during business hours, M-F 8:00 AM - 5:00 PM Central Time. Record requests for emergency care only can be directed to [phone] at any time.[facility] Medications Medication Sig Dispensed Refills Start Date End Date Status lancing device with lancets kit USE 4X/DAY 11/28/2018 Active furosemide (LASIX) 40 mg tablet Take 40 mg by mouth every morning. 05/22/2023 Active HYDROcodone-acetamin ophen (NORCO) 5-325 mg per tablet Take 1 tablet by mouth every 6 (six) hours as needed for pain. 06/12/2023 Active insulin aspart U-100 (NovoLOG Flexpen U-100 Insulin) 100 unit/mL (3 mL) injection INJECT UP TO 15 UNITS BY SUBCUTANEOUS ROUTE PER MEAL. 11/17/2018 Active insulin degludec (Tresiba FlexTouch U-200) 200 unit/mL (3 mL) injection INJECT 60 UNITS EVERY MORNING 12/05/2018 Active ketoconazole (NIZORAL) 2 % cream Apply topically daily. 05/01/2022 Active ketorolac (ACULAR) 0.5 % ophthalmic solution 1 DRP INTO THE EYE(S) FOUR TIMES DAILY FOR 2 WEEKS 05/02/2023 Active levothyroxine (SYNTHROID, LEVOTHROID) 50 mcg tablet Take 50 mcg by mouth. 11/17/2018 Active lisinopriL (PRINIVIL,ZESTRIL) 10 mg tablet Take 10 mg by mouth daily. 12/05/2018 Active metFORMIN (GLUCOPHAGE) 500 mg tablet Take 500 mg by mouth 2 (two) times a day. 01/20/2010 Active ofloxacin (OCUFLOX) 0.3 % ophthalmic solution PUT 1-2 DROPS INTO AFFECTED EYE(S) EVERY 2-4 HOURS X 2 DAYS, THEN 1-2 DROPS 4 TIMES/DAY DAYS 3-7 05/02/2023 Active ondansetron (ZOFRAN) 4 mg tablet TAKE 1 TABLET BY MOUTH EVERY 8 HR 06/02/2023 Active BD Tracey 2nd Gen Pen Needle 32 gauge x 5/32 needle USE 4X DAILY WITH INSULIN E11.9 07/28/2023 Active prednisoLONE acetate (PRED FORTE) 1 % ophthalmic suspension INSTILL 1 DROP IN RIGHT EYE DAILY 05/03/2023 Active prochlorperazine (COMPAZINE) 5 mg tablet TAKE 1 TABLET BY MOUTH TWICE A DAY NEEDED FOR NAUSEA/VOMIT 06/02/2023 Active silver sulfADIAZINE (SILVADENE, SSD) 1 % cream Apply topically 2 (two) times a day. 05/01/2022 Active sodium chloride tablet 1 TABLET (1000 MG) ORALLY EVERY DAY NEEDED FOR ELECTROLYTE REPLENISHMENT 07/09/2023 Active Active Problems Problem Noted Date Diagnosed Date Morbid Obesity 05/01/2022 Diabetes Mellitus Type 2 10/09/2009 Overview (08/03/2023): a system change updated this record. This will not affect patient care or billing. This comment can be deleted. Social History Tobacco Use Types Packs/Day Years Used Date Smoking Tobacco: Never Assessed Nutrition Answer Date Recorded Nutrition: EVOO Fat Source Unknown 06/08 Nutrition: Servings of Fruits/Vegetables per Day Not on file 06/08/2023 Dental Answer Date Recorded Dental: Regular Dentist Unknown 06/08/19 Sex and Gender Information Value Date Recorded Sex Assigned at Not on file Gender Identity Not on file Sexual Orientation Not on file Plan of Treatment Upcoming Encounters Date Type Department Care Team (Latest Contact Info) Description 12/28/2023 9:30 AM CDT Clinical Communication Virtual Review in [place], [place] [address] [place] [address] 12/30/2023 7:30 AM CDT Appointment Department of Radiology, [facility], in [place], [place] [address] [place] [address] Glenny Montejo M.D. [address] [place] [phone] 12/30/2023 9:00 AM CDT Appointment Department of Radiology, [facility], in [place], [place] [address] [place] [address] Glenny Montejo M.D. [address] [place] [phone] 12/30/2023 11:15 AM CDT Office Visit Department of Otorhinolaryngology in [place], [place] [address] [place] [address] Glenny Montejo M.D. [address] [place] [phone] Health Maintenance Due Date Last Done Comments CT Colonography 1966 Cologuard 1966 Colonoscopy 1966 Colorectal Cancer Surveillance 1966 Diabetic Office Visit with Foot Exam 1966 Dilated Eye Exam 1966 HIV Screening 1966 Hepatitis C Screening 1966 Lipid (Cholesterol) Screening 1966 Office Visit for Blood Press ure Check / Re-check 1966 Urine Albumin 1966 Pneumococcal vaccine (0-64 y ears) (1 of 2 - PCV) 1972 Hepatitis B Vaccines (1 of 3 - 19+ 3-dose series) 1985 Zoster Vaccines (1 of 2) 2016 DTaP,Tdap,and Td Vaccines (2 - Td or Tdap) 04/26/2019 04/26/2009 COVID-19 Vaccine (3 - Pfizer risk series) 02/21/2021 01/24/2021, 11/20/2020 Depression Screening (Annual PHQ-2) 04/19/2023 Hemoglobin A1C 11/10/2023 08/11/2023 Influenza Vaccine (#1) 2024 9, 02/25/2018, 01/20/2017 Thyroid Stimulating Hormone (TSH) test for thyroid function 08/08/2024 08/09/2023 Creatinine Level (Kidney Fun ction Test) 09/29/2024 09/30/2023, 08/13/2023, 08/09/2023 Potassium Level 09/29/2024 09/30/2023, 07/19, 08/09/2023 Sodium Level 09/29/2024 09/30/2023, 07/19, 08/09/2023
--- OUTSIDE RECORDS SUMMARY | 2023-12-06 09:51 | XMS_ITS | Encounter Summary ---
Author Organization [facility] Address [address] [place] [address] Care Team Providers Care Final Coat Sprayer Name Role Phone Unavailable Primary Care Provider Unavailabl e Reason for Referral * Outpatient (Routine) - Authorized Specialty Diagnoses / Procedures Referred By Contac t Referred To Contact Otorhinolaryngology Glenny Montejo M.D. [address] [place] [phone] [facility] Referral ID Status Reason Start Date Expiration Date V isits Requested Visits Authorized [id number] Authorized 08/31/2023 03/01/2025 1 1 * Outpatient (Routine) - Authorized Specialty Diagnoses / Procedures Referred By Contac t Referred To Contact Diagnoses Mass Parotid Procedures US Parotid Submandibular Glands Glenny Montejo M.D. [address] [place] [phone] [facility] Referral ID Status Reason Start Date Expiration Date V isits Requested Visits Authorized [id number] Authorized 08/31/2023 08/30/2024 1 1 * Outpatient (Routine) - Authorized Specialty Diagnoses / Procedures Referred By Contac t Referred To Contact Diagnoses Mass Parotid Procedures US Parotid Submandibular Gland Biopsy Glenny Montejo M.D. [address] [place] [phone] [facility] Referral ID Status Reason Start Date Expiration Date V isits Requested Visits Authorized [id number] Authorized 08/31/2023 08/30/2024 1 1 Encounter Details Date Type Department Care Team (Latest Contact Info) Description 08/31/2023 Orders Only Department of Otorhinolaryngology in [place], [place] [address] [place] [phone] Kassie Merrill R.N. [address] [place] [phone] Mass Parotid (Primary Dx) Social History Tobacco Use Types Packs/Day Years [...] on file documented as of this encounter Plan of Treatment Upcoming Encounters Date Type Department Care Team (Latest Contact Info) Description 12/28/2023 9:30 AM CDT Clinical Communication Virtual Review in [place], [place] [address] [place] [address] 12/30/2023 7:30 AM CDT Appointment Department of Radiology, [facility], in [place], [place] [address] [place] [phone] Glenny Montejo M.D. [address] [place] [phone] 12/30/2023 9:00 AM CDT Appointment Department of Radiology, [facility], in [place], [place] [address] [place] [phone] Glenny Montejo M.D. [address] [place] [phone] 12/30/2023 11:15 AM CDT Office Visit Department of Otorhinolaryngology in [place], [place] [address] [place] [phone] Glenny Montejo M.D. 200 [place] [phone] Scheduled Orders Name Type Priority Associated Diagnoses Order Schedule US Parotid Submandibular Gland Biopsy Imaging RAD - Routine (most inpatients and all outpatients) Mass Parotid Expected: 12/30/2023, Expires: 11/30/2024 US Parotid Submandibular Glands Imaging RAD - Routine (most inpatients and all outpatients) Mass Parotid Expected: 12/30/2023, Expires: 11/30/2024 Scheduled Referrals Name Type Priority Associated Diagnoses Order Schedule Otorhinolaryngology office visit (clinic) Outpatient Referral Routine Expected: 12/01/2023, Expires: 11/30/2024 documented as of this encounter Visit Diagnoses Diagnosis Mass Parotid- Primary documented in this encounter
--- OUTSIDE RECORDS SUMMARY | 2023-12-06 09:51 | XMS_ITS ---
Author Organization [facility] Address [address] [place] [address] Care Team Providers Care Dinkey Engine Mechanic Name Role Phone Unavailable Unavailable Unavailable Surgery Details Not on file Complications Check Surgery Details section. Procedure Estimated Blood Loss Check Surgery Details section. Procedure Findings Check Surgery Details section. Procedure Specimens Taken Check Surgery Details section.
--- OUTSIDE RECORDS SUMMARY | 2023-12-06 09:51 | XMS_ITS | Referral Summary ---
Author Organization [facility] Address [address] [place] [address] Care Team Providers Care Senior Behavioral Scientist Name Role Phone Unavailable Primary Care Provider [...] Comments Blood Pressure 118/74 05/01/2022 12:40 PM LIME KILN OPERATOR Pulse - - Temperature - - Respiratory Rate - - Oxygen Saturation - - Inhaled Oxygen Concentration - - Weight 147 kg (324 lb) 05/01/2022 12:40 PM LIME KILN OPERATOR Height 185.4 cm (6' 1) 05/01/2022 12:40 PM LIME KILN OPERATOR Body Mass Index 42.75 05/01/2022 12:40 PM LIME KILN OPERATOR Plan of Treatment Not on file Procedures Procedure Name Priority Date/Time Associated Diagnosis Comments EYE EXAM - HIM SCAN 05/29/2020 1 2:00 AM LIME KILN OPERATOR BASIC METABOLIC PANEL Routine 05/03/2009 6:25 AM LIME KILN OPERATOR HEMOGLOBIN A1C Routine 05/01/2009 7:25 PM LIME KILN OPERATOR from Last 3 Months or Most Recently Relevant to Health Maintenance Results * EYE EXAM - HIM SCAN (05/29/2020 12:00 AM LIME KILN OPERATOR) RETINOPATHY NEGATIVE 05/29/2020 Bridgett Briones - 05/29/2020 12:00 AM LIME KILN OPERATOR DIABETIC EYE EXAM [facility] Provider Outside OTHER * (ABNORMAL) Basic metabolic panel (05/03/2009 6:25 AM LIME KILN OPERATOR) Sodium 133 133 - 144 mmol/L MISYS [...] - 17 mmol/L MISYS 05/03/2009 6:25 AM LIME KILN OPERATOR 05/02/2009 2:26 PM LIME KILN OPERATOR Kenrick Corrales MD LAB - BLOOD OR DERABLES MISYS * (ABNORMAL) Hemoglobin A1c (05/01/2009 7:25 PM LIME KILN OPERATOR) Hemoglobin A1C 13.6(H) 4.3 - 6.0 % MISYS Comment:Reviewed, acceptable 05/01/2009 7:25 PM LIME KILN OPERATOR 05/01/2009 8:29 PM LIME KILN OPERATOR Tonya Byrd MD LAB - BLOOD ORDERABL ES Performing Organization Address [facility]/ZIP Co de Phone Number MISYS from Last 3 Months or Most Recently Relevant to Health Maintenance
--- OUTSIDE RECORDS SUMMARY | 2023-12-06 09:51 | XMS_ITS | Referral Summary ---
Author Organization [facility] Address [address] [place] [address] Care Team Providers Care News Reporter Name Role Phone Unavailable Primary Care Provider Unavailabl e Source Comments Patient records contain information from all sites at [facility]. For routine questions regarding patient records, call [phone] during business hours, M-F 8:00 AM - 5:00 PM Central Time. Record requests for emergency care only can be directed to [phone] at any time.[facility] Medications Medication Sig Dispensed Refills Start Date [...] AM CDT Clinical Communication Virtual Review in [place], [place] [address] [place] [phone] 12/30/2023 7:30 AM CDT Appointment Department of Radiology, [facility], in [place], [place] [address] [place] [address] Glenny Montejo M.D. [address] [place] [phone] 12/30/2023 9:00 AM CDT Appointment Department of Radiology, [facility], in [place], [place] [address] [place] [address] Glenny Montejo M.D. [address] [place] [phone] 12/30/2023 11:15 AM CDT Office Visit Department of Otorhinolaryngology in [place], [place] [address] [place] [phone] Glenny Montejo M.D. [address] [place] [phone]
== END 2023-12-06 09:49 | disposition home or self-care (01) ==
PROVIDERS: PCP Family Medicine; Visit Provider Family Medicine
DX: I10 Essential (primary) hypertension (principal)
CPT/HCPCS: 80053

== ENCOUNTER 2024-02-03 12:53 | Outpatient (CLI) | payer OTHER, SELFPAY ==
--- OUTSIDE RECORDS SUMMARY | 2024-02-03 12:55 | XMS_ITS | Referral Summary ---
Author Organization [facility] Address [address] [place] [address] Care Team Providers Care Maintenance Fitter Name Role Phone Unavailable Primary Care Provider [...] Comments Blood Pressure 118/74 05/01/2022 12:40 PM MOTORBOAT MECHANIC INBOARD Pulse - - Temperature - - Respiratory Rate - - Oxygen Saturation - - Inhaled Oxygen Concentration - - Weight 147 kg (324 lb) 05/01/2022 12:40 PM MOTORBOAT MECHANIC INBOARD Height 185.4 cm (6' 1) 05/01/2022 12:40 PM MOTORBOAT MECHANIC INBOARD Body Mass Index 42.75 05/01/2022 12:40 PM MOTORBOAT MECHANIC INBOARD Plan of Treatment Not on file Procedures Procedure Name Priority Date/Time Associated Diagnosis Comments EYE EXAM - HIM SCAN 05/29/2020 1 2:00 AM MOTORBOAT MECHANIC INBOARD BASIC METABOLIC PANEL Routine 05/03/2009 6:25 AM MOTORBOAT MECHANIC INBOARD HEMOGLOBIN A1C Routine 05/01/2009 7:25 PM MOTORBOAT MECHANIC INBOARD from Last 3 Months or Most Recently Relevant to Health Maintenance Results * EYE EXAM - HIM SCAN (05/29/2020 12:00 AM MOTORBOAT MECHANIC INBOARD) RETINOPATHY NEGATIVE 05/29/2020 Bridgett Briones - 05/29/2020 12:00 AM MOTORBOAT MECHANIC INBOARD DIABETIC EYE EXAM [facility] Provider Outside OTHER * (ABNORMAL) Basic metabolic panel (05/03/2009 6:25 AM MOTORBOAT MECHANIC INBOARD) Sodium 133 133 - 144 mmol/L MISYS [...] - 17 mmol/L MISYS 05/03/2009 6:25 AM MOTORBOAT MECHANIC INBOARD 05/02/2009 2:26 PM MOTORBOAT MECHANIC INBOARD Kenrick Corrales MD LAB - BLOOD OR DERABLES MISYS * (ABNORMAL) Hemoglobin A1c (05/01/2009 7:25 PM MOTORBOAT MECHANIC INBOARD) Hemoglobin A1C 13.6(H) 4.3 - 6.0 % MISYS Comment:Reviewed, acceptable 05/01/2009 7:25 PM MOTORBOAT MECHANIC INBOARD 05/01/2009 8:29 PM MOTORBOAT MECHANIC INBOARD Tonya Byrd MD LAB - BLOOD ORDERABL ES Performing Organization Address [facility]/ZIP Co de Phone Number MISYS from Last 3 Months or Most Recently Relevant to Health Maintenance
--- OUTSIDE RECORDS SUMMARY | 2024-02-03 12:55 | XMS_ITS | Clinical Summary ---
Author Organization [facility] Address [address] [place] [address] Care Team Providers Care Grit Removal Operator Name Role Phone Unavailable Primary Care [...] Comments Blood Pressure 118/74 05/01/2022 12:40 PM BONE DRIER OPERATOR Pulse - - Temperature - - Respiratory Rate - - Oxygen Saturation - - Inhaled Oxygen Concentration - - Weight 147 kg (324 lb) 05/01/2022 12:40 PM BONE DRIER OPERATOR Height 185.4 cm (6' 1) 05/01/2022 12:40 PM BONE DRIER OPERATOR Body Mass Index 42.75 05/01/2022 12:40 PM BONE DRIER OPERATOR Plan of Treatment Health Maintenance Due Date [...] Tdap) 04/26/2019 04/26/2009 EYE EXAM 05/29/2021 05/29/2020 PHQ-2 (once per calendar year) 2023 COVID-19 Vaccine (3 - 2023-2 5 season) 2023 01/24/2021, 11/20/2020 INFLUENZA VACCINE (#1) 2023 9, 02/25/2018, 01/20/2017 RSV VACCINE (1 - 1-dose 75+ series) 2041 HPV IMMUNIZATION Aged Out No longer e [...] - HIM SCAN 05/29/2020 1 2:00 AM BONE DRIER OPERATOR BASIC METABOLIC PANEL Routine 05/03/2009 6:25 AM BONE DRIER OPERATOR HEMOGLOBIN A1C Routine 05/01/2009 7:25 PM BONE DRIER OPERATOR from Last 3 Months or Most Recently Relevant to Health Maintenance Results * EYE EXAM - HIM SCAN (05/29/2020 12:00 AM BONE DRIER OPERATOR) RETINOPATHY NEGATIVE 05/29/2020 Narrative Bridgett Osorio - 05/29/2020 12:00 AM BONE DRIER OPERATOR DIABETIC EYE EXAM [facility] Provider Outside OTHER * (ABNORMAL) Basic metabolic panel (05/03/2009 6:25 AM BONE DRIER OPERATOR) Sodium 133 133 - 144 mmol/L [...] - 17 mmol/L MISYS 05/03/2009 6:25 AM BONE DRIER OPERATOR 05/02/2009 2:26 PM BONE DRIER OPERATOR Kenrick Corrales MD LAB - BLOOD OR DERABLES MISYS * (ABNORMAL) Hemoglobin A1c (05/01/2009 7:25 PM BONE DRIER OPERATOR) Hemoglobin A1C 13.6(H) 4.3 - 6.0 % MISYS Comment:Reviewed, acceptable 05/01/2009 7:25 PM BONE DRIER OPERATOR 05/01/2009 8:29 PM BONE DRIER OPERATOR Tonya Byrd MD LAB - BLOOD ORDERABL ES MISYS from Last 3 Months or Most Recently Relevant to Health Maintenance
--- OUTSIDE RECORDS SUMMARY | 2024-02-03 12:56 | XMS_ITS | Clinical Summary ---
Author Organization [facility] Address [address] [place] [address] Care Team Providers Care Visitor Services Representative Name Role Phone Unavailable Primary Care Provider Unavailabl e Source Comments Patient records contain information from all sites at [facility]. For routine questions regarding patient records, call [phone] during business hours, M-F 8:00 AM - 5:00 PM Central Time. Record requests for emergency care only can be directed to [phone] at any time.[facility] Medications lancing device with lancets kit USE 4X/DAY 11/29/19 19 Active furosemide (LASIX) 40 mg tablet Take 40 mg by mouth every morning. 05/22/19 24 Active HYDROcodone-acet aminophen (NORCO) 5-325 mg per tablet Take 1 tablet by mouth every 6 (six) hours as needed for pain. 06/12/19 24 Active insulin aspart U-100 (NovoLOG Flexpen U-100 Insulin) 100 unit/mL (3 mL) injection INJECT UP TO 15 UNITS BY SUBCUTANEOUS ROUTE PER MEAL. 11/18/19 19 Active insulin degludec (Tresiba FlexTouch U-200) 200 unit/mL (3 mL) injection INJECT 60 UNITS EVERY MORNING 12/06/19 19 Active ketoconazole (NIZORAL) 2 % cream Apply topically daily. 05/01/19 23 Active ketorolac (ACULAR) 0.5 % ophthalmic solution 1 DRP INTO THE EYE(S) FOUR TIMES DAILY FOR 2 WEEKS 05/02/19 24 Active levothyroxine (SYNTHROID, LEVOTHROID) 50 mcg tablet Take 50 mcg by mouth. 11/18/19 19 Active lisinopriL (PRINIVIL,ZESTRI L) 10 mg tablet Take 10 mg by mouth daily. 12/06/19 19 Active metFORMIN (GLUCOPHAGE) 500 mg tablet Take 500 mg by mouth 2 (two) times a day. 01/21/20 10 Active ofloxacin (OCUFLOX) 0.3 % ophthalmic solution PUT 1-2 DROPS INTO AFFECTED EYE(S) EVERY 2-4 HOURS X 2 DAYS, THEN 1-2 DROPS 4 TIMES/DAY DAYS 3-7 05/02/19 24 Active ondansetron (ZOFRAN) 4 mg tablet TAKE 1 TABLET BY MOUTH EVERY 8 HR 06/02/19 24 Active BD Tracey 2nd Gen Pen Needle 32 gauge x needle USE 4X DAILY WITH INSULIN E11.9 07/28/19 24 Active prednisoLONE acetate (PRED FORTE) 1 % ophthalmic suspension INSTILL 1 DROP IN RIGHT EYE DAILY 05/03/19 24 Active prochlorperazine (COMPAZINE) 5 mg tablet TAKE 1 TABLET BY MOUTH TWICE A DAY NEEDED FOR NAUSEA/VOMIT 06/02/19 24 Active silver sulfADIAZINE (SILVADENE, SSD) 1 % cream Apply topically 2 (two) times a day. 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 Gender Identity Not on file Sexual Orientation Not on file Plan of Treatment Health Maintenance Due Date Last Done Comments CT Colonography 1966 Cologuard 1966 Colonoscopy 1966 Colorectal Cancer Surveillance 1966 Diabetic Office Visit with F oot Exam 1966 Dilated Eye Exam 1966 HIV [...] 01/24/2021, 11/20/2020 Depression Screening (Annual PHQ-2) 04/19/2023 Influenza Vaccine (#1) 2024 9, 02/25/2018, 01/20/2017 Hemoglobin A1C 03/28/2024 12/28/2023, 08/11/2023 Thyroid Stimulating Hormone (TSH) test for thyroid function 08/08/2024 08/09/2023 Creatinine Level (Kidney Fun ction Test) 01/06/2025 01/07/2024, 12/31/2023, 12/28/2023, Additional history exists Potassium Level 01/06/2025 01/07/2024, 12/18, 12/31/2023, Additional history exists Sodium Level 01/06/2025 01/07/2024, 12/18, 12/28/2023, Additional history exists
--- OUTSIDE RECORDS SUMMARY | 2024-02-03 12:56 | XMS_ITS ---
Author Organization [facility] Address [address] [place] [address] Care Team Providers Care Department Store General Manager Name Role Phone Unavailable Unavailable Unavailable Surgery Details Not on file Complications Check Surgery Details section. Procedure Estimated Blood Loss Check Surgery Details section. Procedure Findings Check Surgery Details section. Procedure Specimens Taken Check Surgery Details section.
--- OUTSIDE RECORDS SUMMARY | 2024-02-03 12:56 | XMS_ITS | Referral Summary ---
Author Organization [facility] Address [address] [place] [address] Care Team Providers Care Pocket Maker Name Role Phone Unavailable Primary Care Provider Unavailabl e Source Comments Patient records contain information from all sites at [facility]. For routine questions regarding patient records, call [phone] during business hours, M-F 8:00 AM - 5:00 PM Central Time. 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
--- NOTE | 2024-02-03 13:00 | CRLHL7_ITS ---
For Patients: As a result of the Century Cures Act, medical imaging exams and procedure reports are released immediately into your electronic medical record. You may view this report before your referring provider. If you have questions, please contact your health care provider. INDICATION: Malignant neoplasm of colon TECHNIQUE: CT chest, abdomen and pelvis acquired with 149 mL Isovue 370 IV contrast. COMPARISON: 08/26/2023 PET-CT, 08/09/[address], 05/25/[address], 05/25/2023 abdomen MRI FINDINGS: CHEST: Cardiovascular structures: Heart size is normal. Thoracic aorta and main pulmonary artery are normal in caliber. Right-sided Port-A-Cath in place. Right IJ vein superior to the catheter entry site is diminutive and may be chronically thrombosed. This finding is new. Mediastinum and sergio: No mass or adenopathy. Lungs and pleura: Stable partially calcified nodules in the right lower lobe and left upper lobe measuring 2.3 x 1.8 and 2.2 x 1.4 cm respectively. No new nodules. Chest wall and axilla: No mass or adenopathy. Bones: No suspicious bone lesions. Unremarkable for age. ABDOMEN AND PELVIS: Liver: 4.5 x 2.9 cm oval fluid density area in segment 4. Surrounding surgical clips. Findings consistent with a resection cavity. No new mass. Gallbladder and bile ducts: Cholecystectomy. Pancreas: Surgical clips near the neck. Spleen: Unremarkable. Adrenal glands: Unremarkable. Kidneys: Couple of left renal stones, larger measuring 1.2 cm. No obstruction. Cysts in both kidneys. GI tract: Right hemicolectomy. Interval take down of the right lower quadrant ostomy. No obstruction, inflammation, or mass identified. Vascular structures: Unremarkable. Lymph nodes: Alia aortic lymph node on image 184 series 2 measures 1.3 cm in short axis diameter versus 1.0 cm on the previous PET-CT. Miscellaneous: Interval removal of the mass in the right upper abdomen. Indistinct soft tissue and stranding at the resection site extending along a tract to the skin surface in the right upper quadrant. Appearance could be due to postsurgical change or recurrence. Midline ventral wound with wound VAC in place. Pelvic Organs: Unremarkable. Bones: No suspicious bone lesions. Unremarkable for age. IMPRESSION: 1. Resection of right upper quadrant abdominal mass since the prior exam. Soft tissue and stranding in the resection bed tracking to the skin surface could be benign postoperative however can not exclude recurrence along the tract based on these images. 2. Interval right hemicolectomy, resection of hepatic metastasis, and ileostomy take down. 3. Stable partially calcified pulmonary nodules. 4. 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 5. Left nephrolithiasis. Please note that all CT scans at this facility use dose modulation, iterative reconstruction, and/or weight-based dosing when appropriate to reduce radiation dose to as low as reasonably achievable. Dictated by John Harden MD @ 02/08/2024 8:27:13 AM (Electronically Signed)
== END 2024-02-03 12:54 | disposition home or self-care (01) ==
LOC: CT 12:53
PROVIDERS: PCP Family Medicine; Visit Provider Internal Medicine Hematology & Oncology
DX: C18.9 Malignant neoplasm of colon, unspecified (principal); R91.8 Other nonspecific abnormal finding of lung field; N20.0 Calculus of kidney
CPT/HCPCS: 71260; 74177; Q9967

== ENCOUNTER 2024-04-24 10:53 | Outpatient (CLI) | payer OTHER, SELFPAY ==
--- NOTE | 2024-04-24 11:03 | CRLHL7_ITS ---
For Patients: As a result of the 21st Century Cures Act, medical imaging exams and procedure reports are released immediately into your electronic medical record. You may view this report before your referring provider. If you have questions, please contact your health care provider. INDICATIONS: Malignant neoplasm of colon. TECHNIQUE: CT chest, abdomen and pelvis acquired with 146 cc of Isovue 370 IV contrast. COMPARISON: CT chest, abdomen and pelvis 02/03/2024. PET-CT 08/26/2023 and 07/01/2023. CT chest 08/09/2023. FINDINGS: Chest: No pleural or pericardial effusions. Subcentimeter short axis mediastinal and hilar nodes have increased but do not meet strict criteria for lymphadenopathy. Right IJ Port-A-Cath terminates near the cavoatrial junction. Diminutive appearing right internal jugular vein cephalad to the indwelling catheter again may reflect sequela of chronic thrombosis. Thoracic aorta and main pulmonary arteries are normal in caliber. Heart size is within normal limits. Soft tissues of the thoracic wall are unremarkable. No pneumothorax. Central airways are patent. Stable partially calcified left upper and right lower lobe nodules measuring up to 2.3 cm, as before. Lungs are otherwise clear. Abdomen: Interval collapse of resection cavity with foci of gas and surgical clips in segment 4. Ill-defined low-attenuation focus cephalad to the resection cavity appears increased and measures 3.5 cm on image 150 of series 2. stable subcentimeter low-density lesion in the inferior right lobe. Spleen, pancreas and adrenal glands are unremarkable. Nonobstructing left nephrolithiasis measuring up to 12 mm, as before. Stable bilateral renal cystic lesions. No hydronephrosis. Cholecystectomy. No biliary ductal dilatation. Right hemicolectomy with mild adjacent residual soft tissue stranding. No CT evidence of locally recurrent lesion. No bowel obstruction or acute inflammatory change of the GI tract. Borderline and mildly enlarged upper abdominal and retroperitoneal lymph nodes have not significantly changed. No free fluid. Pelvis: Mild prostatomegaly. The bladder as imaged is unremarkable. Pelvic portions of the GI tract are unremarkable. No pathologic pelvic lymphadenopathy or free fluid. Bone windows: Degenerative changes spine and pelvis. No acute or suspicious abnormality. IMPRESSION: 1. Subcentimeter short axis mediastinal and hilar nodes have increased but do not meet strict criteria for lymphadenopathy. No new suspicious pulmonary nodules. 2. Ill-defined low-attenuation cephalad to the resection cavity in the left hepatic lobe has increased but is indeterminate. This could be due to treatment related change or recurrent disease. PET-CT could be considered to further evaluate the mediastinal nodes and hepatic abnormality. 3. Stable mild upper abdominal and retroperitoneal lymphadenopathy. 4. Additional unchanged findings. Dictated by Danilo Contreras MD @ 04/25/2024 9:46:11 AM Please note that all CT scans at this facility use dose modulation, iterative reconstruction, and/or weight-based dosing when appropriate to reduce radiation dose to as low as reasonably achievable. Dictated by: Danilo Contreras MD @ 04/25/2024 09:46:21 (Electronically Signed)
[2024-04-24 11:31] LABS: Creatinine* 0.4 mg/dL (0.5-1.5); Estimated Glomerular Filt Rate 127 ml/min
[2024-04-24 12:28] LABS: Basophils Absolute Auto 0.02 K/uL (0.00-0.30); Basophils Percent Auto 0.4 % (0.0-3.0); Eosinophils Absolute Auto 0.03 K/uL (0.00-0.50); Eosinophils Percent Auto 0.7 % (0.0-7.0); Hematocrit 45.3 % (37.0-53.0); Immature Granulocytes Abs Auto 0.01 K/uL (0.00-0.30); Immature Granulocytes Pct Auto 0.2 %; Lymphocytes Absolute Auto 1.28 K/uL (0.90-2.90); Lymphocytes Percent Auto 28.1 % (20-44); Mean Corpuscular HGB Conc 31 gm/dL (32-36); Mean Corpuscular Hemoglobin 25 pg (26-34); Mean Corpuscular Volume 80 fL (80-100); Monocytes Percent Auto 9.9 % (0.0-11.0); Neutrophils Absolute Auto 2.77 K/uL (1.7-7.0); Neutrophils Percent Auto 60.7 % (42.0-72.0); Platelet Count* 163 K/uL (140-440); RDW Coefficient of Variation % 19.8 % (11.5-15.5); White Blood Count* 4.56 K/uL (4.50-11.00)
[2024-04-24 12:35] LABS: Slide Review Reflex No
[2024-04-24 12:43] LABS: Albumin* 3.9 g/dL (3.3-5.0); Chloride* 99 mmol/L (96-114); Potassium* 3.8 mmol/L (3.6-5.1); Sodium* 136 mmol/L (135-149)
[2024-04-24 12:45] LABS: Anion Gap 8 mEq/L (7-15); Bilirubin Total* 0.5 mg/dL (0.1-1.5); Carbon Dioxide* 29 mmol/L (20-32); Creatinine* 0.4 mg/dL (0.5-1.5); Estimated Glomerular Filt Rate 127 ml/min
[2024-04-24 12:46] LABS: Alanine Aminotransferase* 27 U/L (4-50); Alkaline Phosphatase* 94 U/L (40-150); Aspartate Amino Transferase* 27 U/L (12-35); Blood Urea Nitrogen* 16 mg/dL (7-30); Calcium* 8.8 mg/dL (8.4-10.6); Glucose* 197 mg/dL (60-115); Total Protein* 7.3 g/dL (6.0-8.3)
[2024-04-25 18:47] LABS: Carcinoembryonic Antigen 4.7 ng/mL (<=3.8)
== END 2024-04-24 10:54 | disposition home or self-care (01) ==
LOC: CT 10:54
PROVIDERS: PCP Family Medicine; Visit Provider Internal Medicine Hematology & Oncology
DX: C18.9 Malignant neoplasm of colon, unspecified (principal)
CPT/HCPCS: 36415; 71260; 74177; 80053; 82378; 82565; 85025; Q9967

== ENCOUNTER 2024-05-17 11:00 | Outpatient (RCR) | payer OTHER, SELFPAY ==
--- NOTE | 2023-12-07 11:22 | PC.NURSE ---
Addendum entered by Trish Ponce RN 12/09/23 12:38: Will have Dr. Mcnair address this issue on Wednesday and will call Brit at that time. ALEX ok with this plan. Original Note: Received a call from ALEX Perea from the Liver/Pancreas team at [place]. Des is scheduled for surgery at [place] next week on 12/17/2023, and the surgical teams recommendations are to hold Xarelto for 2 days (last dose 12/14/2023). When they instructed Des, he recalled hearing from someone that he would need to bridge with Lovenox. Per ALEX Perea, that is not the recommendations of the surgical team at [place] so she wants to make sure this is not something Dr. Mcnair has recommended. Will review the above with a [facility] provider and call Brit back ([phone]) with an update.
[2024-02-03 13:38] LABS: Basophils Absolute Auto 0.04 K/uL (0.00-0.30); Basophils Percent Auto 0.6 % (0.0-3.0); Eosinophils Absolute Auto 0.17 K/uL (0.00-0.50); Eosinophils Percent Auto 2.4 % (0.0-7.0); Hematocrit 33.5 % (37.0-53.0); Hemoglobin* 9.5 gm/dL (13.5-17.5); Immature Granulocytes Abs Auto 0.02 K/uL (0.00-0.30); Immature Granulocytes Pct Auto 0.3 %; Lymphocytes Percent Auto 18.6 % (20-44); Mean Corpuscular HGB Conc 28 gm/dL (32-36); Mean Corpuscular Hemoglobin 22 pg (26-34); Mean Corpuscular Volume 76 fL (80-100); Neutrophils Absolute Auto 5.06 K/uL (1.7-7.0); Neutrophils Percent Auto 70.1 % (42.0-72.0); Platelet Count* 405 K/uL (140-440); RDW Coefficient of Variation % 17.9 % (11.5-15.5); Red Blood Count 4.41 m/uL (4.30-5.90); White Blood Count* 7.21 K/uL (4.50-11.00)
[2024-02-03 13:40] LABS: Slide Review Reflex No
[2024-02-03 14:08] LABS: Albumin* 3.7 g/dL (3.3-5.0); Chloride* 100 mmol/L (96-114)
[2024-02-03 14:09] LABS: Potassium* 3.8 mmol/L (3.6-5.1); Sodium* 136 mmol/L (135-149)
[2024-02-03 14:11] LABS: Anion Gap 9 mEq/L (7-15); Aspartate Amino Transferase* 18 U/L (12-35); Bilirubin Total* 0.5 mg/dL (0.1-1.5); Blood Urea Nitrogen* 11 mg/dL (7-30); Carbon Dioxide* 27 mmol/L (20-32); Creatinine* 0.8 mg/dL (0.5-1.5); Est. Creatinine Clearance* 111.82; Estimated Glomerular Filt Rate 103 ml/min; Total Protein* 7.1 g/dL (6.0-8.3)
[2024-02-03 14:12] LABS: Alanine Aminotransferase* 12 U/L (4-50); Alkaline Phosphatase* 91 U/L (40-150); Calcium* 8.8 mg/dL (8.4-10.6); Glucose* 175 mg/dL (60-115)
[2024-02-05 04:58] LABS: Carcinoembryonic Antigen 2.4 ng/mL (<=3.8)
[2024-02-07 16:50] LABS: Iron* 52 ug/dL (49-181)
[2024-02-07 16:59] LABS: Percent Iron Saturation 14 % (20-50); Total Iron Binding Capacity 364 ug/dL (261-462)
[2024-02-07 17:27] LABS: Ferritin* 28.5 ng/mL (17.9-464.0)
--- NOTE | 2024-02-14 14:57 | PC.NURSE ---
Pt called today asking about his iron lab results. RN reviewed results. Pt has questions about these results and iron ordered by Dr. Mcnair. Will discuss with .
--- NOTE | 2024-02-16 07:45 | URNOTE ---
Fereheme ([id number]) was approved, 510mg infused on day 0 and day 7 for 2 doses= 510 units per dose for a total of 1020 units. 02/15/2024-03/16/2024. Ref #[id number]
[2024-02-22 13:01] VITALS: BP 126/71; PULSE 75; RESP 16; TEMP 36.2; O2SAT 98
[2024-02-22] MEDS: ferumoxytoL 510 MG in 0.9 % SODIUM CHLORIDE 250 ml 250 ML 1068 MG IVPB (13:18)
[2024-02-22] MEDS: SODIUM CHLORIDE 0.9 % (FLUSH) 10 ML SYRINGE IVF ×2 (13:20→14:11)
[2024-02-22 14:10] VITALS: BP 128/71; PULSE 74; RESP 16; TEMP 36.8; O2SAT 96
[2024-02-22] MEDS: HEPARIN 500 UNIT/5 ML SYRINGE IVF (14:11)
[2024-02-29 13:32] VITALS: BP 115/74; PULSE 85; RESP 16; TEMP 36.7; O2SAT 85
[2024-02-29] MEDS: ferumoxytoL 510 MG in 0.9 % SODIUM CHLORIDE 250 ml 250 ML 850 MG IVPB (13:49)
[2024-02-29 14:11] VITALS: BP 112/70; PULSE 70; RESP 16; TEMP 36.4; O2SAT 95
[2024-02-29] MEDS: HEPARIN 500 UNIT/5 ML SYRINGE IVF (14:43)
[2024-02-29] MEDS: SODIUM CHLORIDE 0.9 % (FLUSH) 10 ML SYRINGE IVF (14:43)
[2024-02-29 14:49] VITALS: BP 122/71; PULSE 81; RESP 16; TEMP 36.5; O2SAT 94
[2024-04-24] MEDS: SODIUM CHLORIDE 0.9 % (FLUSH) 10 ML SYRINGE IVF ×2 (11:55→12:30)
[2024-04-24] MEDS: HEPARIN 500 UNIT/5 ML SYRINGE IVF (12:30)
--- NOTE | 2024-04-26 09:05 | ONC.NURNOTE ---
[facility] requesting us to push images from 04/24/24 to [facility]. This request was placed to imaging.
[2024-05-17] MEDS: HEPARIN 500 UNIT/5 ML SYRINGE IVF (11:10)
[2024-05-17] MEDS: SODIUM CHLORIDE 0.9 % (FLUSH) 10 ML SYRINGE IVF (11:10)
[2024-05-19 08:45] LABS: Carcinoembryonic Antigen 3.6 ng/mL (<=3.8)
== END 2024-07-16 23:59 | disposition home or self-care (01) ==
LOC: CCIC 11:00
PROVIDERS: PCP Family Medicine; Referring Provider Family Medicine; Visit Provider Internal Medicine Hematology & Oncology
DX: C18.9 Malignant neoplasm of colon, unspecified (principal)
CPT/HCPCS: 36415; 36591; 80048; 80053; 82378; 82728; 83540; 83550; 84443; 85025; 96365; 96374; 99215; G0463; J1642; J7050; Q0138

== ENCOUNTER 2024-09-29 15:45 | Outpatient (CLI) | payer BC, SELFPAY ==
--- NOTE | 2024-09-29 16:45 | CRLHL7_ITS ---
For Patients: As a result of the Century Cures Act, medical imaging exams and procedure reports are released immediately into your electronic medical record. You may view this report before your referring provider. If you have questions, please contact your health care provider. Indication: MALIGNANT NEOPLASM OF COLON-FOLLOW UP Technique: CT Chest/Abd/Pelvis 148CC ISOVUE 370 intravenous contrast Please note that all CT scans at this facility use dose modulation, iterative reconstruction, and/or weight-based dosing when appropriate to reduce radiation dose to as low as reasonably achievable. Comparison: 04/24/2024 Findings: In the chest, the visualized thyroid is within normal limits. No enlarged lymph nodes in the mediastinum or sergio. Normal axillary lymph nodes. Stable circumscribed nodule within the right lower lobe which measures 1.9 cm. Stable dense nodule within the lingula which measures 1.2 cm. No fracture or suspicious osseous lesion. In the abdomen/, there is no intrahepatic mass. Postop changes to the liver are similar. No adrenal nodule. The spleen is within normal limits. Nonobstructing left renal stone is similar along with a benign left renal cyst. Smaller right renal cysts are present. No hydronephrosis or solid renal mass. Stable right adrenal cyst. The pancreas is normal. No hiatal hernia. Postoperative changes right hemicolectomy. No bowel obstruction. Old right lower quadrant ostomy site noted with unchanged fat herniation. No inflammatory changes. Small fat filled umbilical hernia defect again noted. Bladder incompletely distended. Prostate calcifications. No adenopathy. Degenerative changes. No intrinsic osseous lesion or fracture. A few scattered sub cm central mesenteric lymph nodes are similar. Impression: No significant interval change compared to the prior study. Please note that all CT scans at this facility use dose modulation, iterative reconstruction, and/or weight-based dosing when appropriate to reduce radiation dose to as low as reasonably achievable. Dictated by Jay Craven MD @ 10/01/2024 6:23:13 PM (Electronically Signed)
[2024-09-29 16:52] LABS: Creatinine* 0.6 mg/dL (0.5-1.5); Estimated Glomerular Filt Rate 112 ml/min
== END 2024-09-29 15:46 | disposition home or self-care (01) ==
LOC: CT 15:46
PROVIDERS: PCP Family Medicine; Visit Provider Internal Medicine Hematology & Oncology
DX: C18.9 Malignant neoplasm of colon, unspecified (principal)
CPT/HCPCS: 36415; 36591; 71260; 74177; 80053; 82378; 82565; 85025; 85379; 99001; 99214; G0463; Q9967

== ENCOUNTER 2025-01-17 15:27 | Outpatient (CLI) | payer BC, SELFPAY ==
--- NOTE | 2025-01-17 16:45 | CRLHL7_ITS ---
For Patients: As a result of the Century Cures Act, medical imaging exams and procedure reports are released immediately into your electronic medical record. You may view this report before your referring provider. If you have questions, please contact your health care provider. Indication: MALIGNANT NEOPLASM OF COLON Technique: CT Chest/Abd/Pelvis 150CC ISOVUE 370 intravenous contrast Please note that all CT scans at this facility use dose modulation, iterative reconstruction, and/or weight-based dosing when appropriate to reduce radiation dose to as low as reasonably achievable. Comparison: 09/29/2024 Findings: In the chest, the visualized thyroid is within normal limits. Numerous subcentimeter mediastinal and right hilar lymph nodes are similar compared to the prior exam. No enlarged axillary lymph nodes. Fullness of the right lower lobe bronchovascular structures remains similar. Large calcified nodule within the right lower lobe is unchanged. Also unchanged is a calcified nodule within the lingula. No suspicious pulmonary nodule. No infiltrate or edema. No effusion or pneumothorax. Mild dependent atelectasis. No fracture or intrinsic osseous lesion. Multilevel discogenic spurring throughout the thoracic spine. In the abdomen, stable postop changes of partial hepatic resection. Calcified splenic granulomas are noted. No adrenal nodule. Chronic left renal stone and bilateral simple renal cysts. No hydronephrosis. Pancreas is normal. Gallbladder is absent. No biliary obstruction. Multiple surgical clips adjacent to the pancreas. A few scattered subcentimeter upper retroperitoneal/periportal lymph nodes are unchanged. Stable tiny central mesenteric lymph nodes with faint stranding. Postoperative changes of right hemicolectomy. No bowel obstruction or free air. Old right ileostomy hernia containing fat is unchanged. Postop changes to the supraumbilical abdominal wall with unchanged eventration related to rectus diastasis. In the pelvis, the bladder is similar. Prostate calcifications. No pelvic or inguinal adenopathy. No fracture or suspicious osseous lesion. Impression: Stable exam. No significant change since the prior study. Please note that all CT scans at this facility use dose modulation, iterative reconstruction, and/or weight-based dosing when appropriate to reduce radiation dose to as low as reasonably achievable. Dictated by Jay Craven MD @ 01/18/2025 10:48:47 AM (Electronically Signed)
== END 2025-01-17 15:28 | disposition home or self-care (01) ==
LOC: CT 15:29
PROVIDERS: PCP Family Medicine; Visit Provider Internal Medicine Hematology & Oncology
DX: C18.9 Malignant neoplasm of colon, unspecified (principal)
CPT/HCPCS: 71260; 74177; Q9967

== ENCOUNTER 2025-01-23 15:53 | Outpatient (CLI) | payer BC, SELFPAY | END 2025-01-23 15:54 | disposition home or self-care (01) | PROVIDERS: PCP Family Medicine; Visit Provider Family Medicine | DX: Z12.5 Encounter for screening for malignant neoplasm of prostate (principal); E78.5 Hyperlipidemia, unspecified; E03.9 Hypothyroidism, unspecified | CPT/HCPCS: 80061; 84443; G0103 ==

== ENCOUNTER 2025-01-25 14:00 | Outpatient (RCR) | payer BC, SELFPAY ==
--- NOTE | 2024-07-19 15:54 | ONC.NURNOTE ---
Called patient today to see if he can move his 07/[address] Mcnair to 3pm. Per patient he was going to call Wednesday but he needs to cancel that appt all together. Patient reports that he needed to get a job and his new insurance doesn't go into effect until August. Offered to schedule patient for an appt in August and he stated he was driving and didnt have access to a calendar. He said he would call back this week to get a May appt. Updated Verenice Garcia, line installation supervisor who added him to the August appt reminders. 07/26 appt cancelled per patient request.
--- NOTE | 2024-08-21 16:06 | ONC.NURNOTE ---
Received call from Elba mendoza [facility] ([phone]) asking when patient was getting CT scan and noted was patient cancelled July's appointments due to job change and getting different insurance. He never did call back to reschedule so signwriter left message on his phone today that he needed to get in for CT scan/labs and then MD. Asked him to call as soon as he can to get this all on schedule
[2024-09-29] MEDS: SODIUM CHLORIDE 0.9 % (FLUSH) 10 ML SYRINGE IVF (17:28)
[2024-09-29] MEDS: HEPARIN 500 UNIT/5 ML SYRINGE IVF (17:28)
--- NOTE | 2024-09-29 17:28 | PC.NURSE ---
Port de-accessed, intact, after CT scan.
[2024-10-04 14:57] LABS: Hematocrit* 46.4 % (37.0-53.0); Hemoglobin* 15.3 gm/dL (13.5-17.5); Immature Granulocytes Abs Auto 0.01 K/uL (0.00-0.30); Immature Granulocytes Pct Auto 0.1 %; Lymphocytes Absolute Auto 1.72 K/uL (0.90-2.90); Mean Corpuscular HGB Conc 33 gm/dL (32-36); Mean Corpuscular Hemoglobin 28 pg (26-34); Mean Corpuscular Volume 84 fL (80-100); RDW Coefficient of Variation % 15.0 % (11.5-15.5); Red Blood Count* 5.53 m/uL (4.30-5.90); Slide Review Reflex No; White Blood Count* 7.75 K/uL (4.50-11.00)
[2024-10-04 15:13] LABS: Albumin* 4.1 g/dL (3.3-5.0); Chloride* 103 mmol/L (96-114); Potassium* 3.6 mmol/L (3.6-5.1); Sodium* 137 mmol/L (135-149)
[2024-10-04 15:16] LABS: Alanine Aminotransferase* 23 U/L (4-50); Alkaline Phosphatase* 105 U/L (40-150); Anion Gap 7 mEq/L (7-15); Aspartate Amino Transferase* 26 U/L (12-35); Bilirubin Total* 0.8 mg/dL (0.1-1.5); Blood Urea Nitrogen* 14 mg/dL (7-30); Carbon Dioxide* 27 mmol/L (20-32); Creatinine* 0.5 mg/dL (0.5-1.5); Est. Creatinine Clearance* 176.76; Estimated Glomerular Filt Rate 118 ml/min; Total Protein* 7.4 g/dL (6.0-8.3)
[2024-10-04 15:17] LABS: Calcium* 8.9 mg/dL (8.4-10.6); Glucose* 92 mg/dL (60-115)
[2024-10-04 16:20] LABS: D Dimer Quantitative* < 0.27 ug/ml (0.00-0.50)
[2024-10-06 20:11] LABS: Carcinoembryonic Antigen 2.9 ng/mL (<=3.8)
--- NOTE | 2024-10-11 15:58 | ONC.NURNOTE ---
Addendum entered by Dayanara Saldaña RN 10/18/24 11:10: Left message on patient's voicemail that his Gilles test can back negative and he could have his port out. Patient asked to call nursing back to verify he got message and talk about port Original Note: Patient called and instructed to stop his Xarelto. Given numbers of D-Dimer per patient request. Also instructed port can come out after Gilles test back. Patient stated he has scans at the beginning of December
--- NOTE | 2025-01-01 14:57 | ONC.NURNOTE ---
[employer] called radiology to see if pt was called to schedule CT scan. Per radiology, they have left messages x 3. [employer] called and left a message with pt to call [facility] so that we can schedule a follow up provider appt with a CT scan prior.
[2025-01-17 16:10] LABS: Hematocrit* 48.7 % (37.0-53.0); Hemoglobin* 16.4 gm/dL (13.5-17.5); Immature Granulocytes Abs Auto 0.02 K/uL (0.00-0.30); Immature Granulocytes Pct Auto 0.3 %; Lymphocytes Absolute Auto 1.76 K/uL (0.90-2.90); Mean Corpuscular HGB Conc 34 gm/dL (32-36); Mean Corpuscular Hemoglobin 29 pg (26-34); Mean Corpuscular Volume 86 fL (80-100); RDW Coefficient of Variation % 14.2 % (11.5-15.5); Red Blood Count* 5.66 m/uL (4.30-5.90); White Blood Count* 7.92 K/uL (4.50-11.00)
[2025-01-17 16:14] LABS: Slide Review Reflex No
[2025-01-17 16:23] LABS: Albumin* 4.1 g/dL (3.3-5.0); Chloride* 104 mmol/L (96-114); Potassium* 3.9 mmol/L (3.6-5.1); Sodium* 134 mmol/L (135-149)
[2025-01-17 16:26] LABS: Alanine Aminotransferase* 25 U/L (4-50); Alkaline Phosphatase* 104 U/L (40-150); Anion Gap 8 mEq/L (7-15); Aspartate Amino Transferase* 28 U/L (12-35); Bilirubin Total* 1.1 mg/dL (0.1-1.5); Blood Urea Nitrogen* 12 mg/dL (7-30); Calcium* 8.8 mg/dL (8.4-10.6); Carbon Dioxide* 22 mmol/L (20-32); Creatinine* 0.5 mg/dL (0.5-1.5); Est. Creatinine Clearance* 176.76; Estimated Glomerular Filt Rate 118 ml/min; Glucose* 145 mg/dL (60-115); Total Protein* 7.5 g/dL (6.0-8.3)
[2025-01-19 10:04] LABS: Carcinoembryonic Antigen 3.7 ng/mL (<=3.8)
== END 2025-03-28 23:59 | disposition home or self-care (01) ==
LOC: CCIC 14:00
PROVIDERS: Internal Medicine Hematology & Oncology; PCP Family Medicine; Referring Provider Family Medicine; Visit Provider Clinical Nurse Specialist
DX: C18.9 Malignant neoplasm of colon, unspecified (principal); C78.7 Secondary malignant neoplasm of liver and intrahepatic bile duct; L98.9 Disorder of the skin and subcutaneous tissue, unspecified; E03.9 Hypothyroidism, unspecified; Z95.828 Presence of other vascular implants and grafts; E11.9 Type 2 diabetes mellitus without complications
CPT/HCPCS: 36415; 36591; 80053; 82378; 85025; 85379; 99001; 99214; G0463; J1642